=== PATIENT | male | born 1935 | race Caucasian/White ===

== ENCOUNTER 2017-08-19 17:48 | Inpatient (IN) | payer MEDICARE ==
[~2017-08-19] VITALS: Ht 188 cm; Wt 105.9 kg
[2017-08-19] MEDS ORDERED: HYDR-963 PO (20:17)
[2017-08-19] MEDS ORDERED: FURO-69 PO (20:17)
[2017-08-19] MEDS ORDERED: SERT100T PO (20:17)
[2017-08-19] MEDS ORDERED: QUET25TA5 PO (20:17)
[2017-08-19] MEDS ORDERED: MEMA1CAP PO (20:17)
[2017-08-19] MEDS ORDERED: CLOP75TA57 PO (20:17)
[2017-08-19] MEDS ORDERED: PANT40TA5 PO (20:17)
[2017-08-19] MEDS ORDERED: ASPI325T8 PO (20:17)
[2017-08-19] MEDS ORDERED: DONE10TA61 PO (20:17)
[2017-08-19] MEDS ORDERED: LEVO100T5 PO (20:17)
[2017-08-19] MEDS ORDERED: GABA-586 PO (20:17)
[2017-08-19] MEDS ORDERED: FOSI20TA PO (20:17)
[2017-08-19] MEDS ORDERED: FERR324T9 PO (20:17)
[2017-08-19] MEDS ORDERED: FINA5TAB4 PO (20:17)
[2017-08-19] MEDS ORDERED: CARV6.252 PO (20:17)
[2017-08-19] MEDS ORDERED: ATOR40TA59 PO (20:17)
[2017-08-19] MEDS ORDERED: MEMA28CA PO (20:17)
[2017-08-19] MEDS ORDERED: ACETAMINOPHEN 325 MG TABLET PO PRN (20:30)
[2017-08-19] MEDS ORDERED: METHYL SALICYLATE/MENTHOL TOPICAL OINTMENT 29GM TUBE. TP PRN (20:30)
[2017-08-19] MEDS ORDERED: MAGNESIUM HYDROXIDE 2,400 MG/30 ML ORAL.SUSP. PO PRN (20:30)
[2017-08-19] MEDS ORDERED: MAG HYDROX/AL HYDROX/SIMETH 30 ML ORAL.SUSP PO PRN (20:30)
--- NOTE | 2017-08-19 21:00 | PDOC ---
Exam Note: Jorje Note: Please also refer to the separate dictated note~for this date of service dictated separately.~Patient seen individually. Discussed the patient with Nursing staff reviewed the chart.~Reviewed interim history and current functioning. Reviewed vital signs,~Labs/ Radiology~and current medications noted below. Continue current treatment with the changes noted in the dictated addendum note Current Medications: Meds: Current Medications Acetaminophen (Tylenol) 650 mg PRN Q6HRS PRN PO PAIN / TEMP; Start 08/19/17 at 20:30 Multi-Ingredient Ointment (Analgesic [place]) 1 lima PRN QID PRN TP MUSCLE PAIN; Start 08/19/17 at 20:30 Al Hydroxide/Mg Hydroxide (Mylanta Plus Xs) 15 ml PRN AFTMEALHC PRN PO DYSPEPSIA; Start 08/19/17 at 20:30 Magnesium Hydroxide (Milk Of Magnesia) 2,400 mg PRN QHS PRN PO CONSTIPATION; Start 08/19/17 at 20:30 Donepezil HCl (Aricept) 10 mg QHS PO ; Start 08/19/17 at 21:00 Quetiapine Fumarate (SEROquel) 25 mg PRN Q12HR PRN PO Agitation/Delusions; Start 08/19/17 at 20:30 Sertraline HCl (Zoloft) 100 mg DAILY PO ; Start 08/20/17 at 09:00 Aspirin (Sandra Aspirin) 325 mg DAILY PO ; Start 08/20/17 at 09:00 Carvedilol (Coreg) 6.25 mg BIDWMEALS PO ; Start 08/20/17 at 08:00 Clopidogrel Bisulfate (Plavix) 75 mg DAILY PO ; Start 08/20/17 at 09:00 Finasteride (Proscar) 5 mg DAILY PO ; Start 08/20/17 at 09:00 Furosemide (Lasix) 20 mg DAILY PO ; Start 08/20/17 at 09:00 Gabapentin (Neurontin) 300 mg TID PO ; Start 08/19/17 at 21:00 Levothyroxine Sodium (Synthroid) 100 mcg DAILY07 PO ; Start 08/20/17 at 07:00 Pantoprazole Sodium (Protonix) 40 mg BID PO ; Start 08/19/17 at 21:00 Atorvastatin Calcium (Lipitor) 40 mg QHS PO ; Start 08/19/17 at 21:00 Ferrous Sulfate (Feosol) 325 mg DAILY PO ; Start 08/20/17 at 09:00 Lisinopril (Prinivil) 20 mg DAILY PO ; Start 08/20/17 at 09:00 Active Scripts Active Reported [place] 10-325 Tablet (Hydrocodone Bit/Acetaminophen) 1 Each Tablet 1 Tab PO PRN Q6HRS PRN Aspirin 325 Mg Tablet 325 Mg PO DAILY Atorvastatin Calcium 40 Mg Tablet 40 Mg PO QHS Carvedilol 6.25 Mg Tablet 6.25 Mg PO BIDWMEALS Plavix (Clopidogrel Bisulfate) 75 Mg Tablet 75 Mg PO DAILY Aricept (Donepezil Hcl) 10 Mg Tablet 10 Mg PO QHS Ferrous Gluconate 324 Mg Tablet 324 Mg PO DAILY Finasteride 5 Mg Tablet 5 Mg PO DAILY Fosinopril Sodium 20 Mg Tablet 20 Mg PO DAILY Lasix (Furosemide) 20 Mg Tablet 20 Mg PO DAILY Neurontin (Gabapentin) 300 Mg Capsule 300 Mg PO TID Levothyroxine Sodium 100 Mcg Tablet 100 Mcg PO DAILY07 Namenda Xr (Memantine Hcl) 28 Mg Cap.spr.24 28 Mg PO DAILY Namenda Xr (Memantine Hcl) 1 Each Cap24.dspk 1 Each PO DAILY Pantoprazole Sodium 40 Mg Tablet.dr 40 Mg PO BID Seroquel (Quetiapine Fumarate) 25 Mg Tablet 25 Mg PO PRN Q12HR PRN Zoloft (Sertraline Hcl) 100 Mg Tablet 100 Mg PO DAILY I have reviewed the current psychotropics carefully including drug interactions. Risk benefit ratio favors no change other than as noted in my dictated progress note. DOMONIQUE ROWELL MD August 19, 2017 21:00
[2017-08-19] MEDS: ATORVASTATIN CALCIUM 20 MG TABLET PO SCH (21:17)
[2017-08-19] MEDS: PANTOPRAZOLE 40 MG TABLET. PO SCH (21:17)
[2017-08-19] MEDS: GABAPENTIN 300 MG CAPSULE. PO SCH (21:17)
[2017-08-19] MEDS: DONEPEZIL HCL 10 MG TABLET PO SCH (21:17)
[2017-08-19 23:00] VITALS: BP 136/81
[2017-08-20 05:45] VITALS: BP 108/55
[2017-08-20] MEDS: GABAPENTIN 300 MG CAPSULE. PO SCH ×3 (08:01→19:49)
[2017-08-20] MEDS: PANTOPRAZOLE 40 MG TABLET. PO SCH ×2 (08:01→19:49)
[2017-08-20] MEDS: LEVOTHYROXINE 100 MCG TABLET PO SCH (08:01)
[2017-08-20] MEDS: ASPIRIN 325 MG TABLET PO SCH (08:03)
[2017-08-20] MEDS: FERROUS SULFATE 325 MG TABLET. PO SCH (08:03)
[2017-08-20] MEDS: LISINOPRIL 20 MG TABLET PO SCH (08:04)
[2017-08-20] MEDS: FINASTERIDE 5 MG TABLET PO SCH (08:04)
[2017-08-20] MEDS: CARVEDILOL 6.25 MG TABLET PO SCH ×2 (08:04→17:27)
[2017-08-20] MEDS: FUROSEMIDE 20 MG TABLET PO SCH (08:04)
[2017-08-20] MEDS: CLOPIDOGREL BISULFATE 75 MG TABLET PO SCH (08:04)
[2017-08-20] MEDS: SERTRALINE 100 MG TABLET. PO SCH (08:04)
[2017-08-20 08:22] LABS: BASO # 0.1 x10^3/uL (0.0-0.2); BASO % 3 % (0-3); EOS # 0.3 x10^3/uL (0.0-0.7); EOS % 8 % (0-3); HEMATOCRIT 36.5 % (39.0-53.0); HEMOGLOBIN 11.8 g/dL (13.0-17.5); LYMPH # 0.8 x10^3/uL (1.0-4.8); LYMPH % 22 % (24-48); MEAN CORPUSCULAR HEMOGLOBIN 30 pg (25-35); MEAN CORPUSCULAR HGB CONC 32 g/dL (31-37); MEAN CORPUSCULAR VOLUME 94 fL (79-100); MONO # 0.4 x10^3/uL (0.0-1.1); MONO % 13 % (0-9); NEUT # 1.9 x10^3uL (1.8-7.7); NEUT % 55 % (31-73); PLATELET COUNT 102 x10^3/uL (140-400); RED BLOOD COUNT 3.88 x10^6/uL (4.30-5.70); RED CELL DISTRIBUTION WIDTH 21.5 % (11.5-14.5); WHITE BLOOD COUNT 3.5 x10^3/uL (4.0-11.0)
[2017-08-20 08:29] LABS: ALBUMIN 3.2 g/dL (3.4-5.0); CALCIUM 8.4 mg/dL (8.5-10.1); CREATININE 0.9 mg/dL (0.7-1.3); POTASSIUM 3.6 mmol/L (3.5-5.1); TOTAL BILIRUBIN 0.8 mg/dL (0.2-1.0); TOTAL PROTEIN 6.3 g/dL (6.4-8.2)
[2017-08-20 09:50] LABS: ANISOCYTOSIS SLIGHT; OVALOCYTES FEW; PLT ESTIMATE DECREASED (ADEQUATE); SCHISTOCYTES OCC; TEAR DROP CELLS OCC
[2017-08-20 14:09] LABS: THYROID STIM HORMONE (TSH) 3.913 uIU/mL (0.358-3.740)
[2017-08-20 15:53] VITALS: BP 111/72
[2017-08-20] MEDS: DONEPEZIL HCL 10 MG TABLET PO SCH (19:49)
[2017-08-20] MEDS: ATORVASTATIN CALCIUM 20 MG TABLET PO SCH (19:49)
[2017-08-20] MEDS: risperiDONE ORAL 1 MG/ML 30ml BOTTLE. SL SCH (19:50)
[2017-08-20] MEDS: CHOLECALCIFEROL (VITAMIN D3) 50,000 UNIT CAPSULE PO SCH (19:50)
[2017-08-20 20:09] LABS: T3 TOTAL 62 ng/dL (71-180)
[2017-08-20 20:39] LABS: BACTERIA,URINE 0 /HPF (0-FEW); BILIRUBIN,URINE NEG (NEG); CLARITY,URINE CLEAR; COLOR,URINE AMBER; GLUCOSE,URINE NEG (NEG); NITRITE,URINE NEG (NEG); UROBILINOGEN,URINE 0.2 mg/dL (0.2 mg/dL)
[2017-08-20 20:40] LABS: SQUAMOUS EPITHELIAL CELL,UR OCC /LPF
--- NOTE | 2017-08-20 21:02 | PDOC ---
Exam Note: Jorje Note: Please also refer to the separate dictated note~for this date of service dictated separately.~Patient seen individually. Discussed the patient with Nursing staff reviewed the chart.~Reviewed interim history and current functioning. Reviewed vital signs,~Labs/ Radiology~and current medications noted below. Continue current treatment with the changes noted in the dictated addendum note Assessment: Vital Signs: Vital Signs Date Time Temp Pulse Resp B/P (MAP) Pulse Ox O2 Delivery O2 Flow Rate FiO2 08/20/17 17:27 83 111/72 08/20/17 15:53 97.6 18 96 I&O Intake and Output 08/20/17 07:00 Intake Total 480 ml Balance 480 ml Intake Oral 480 ml Labs: Laboratory Tests Test 08/20/17 07:50 08/20/17 15:15 White Blood Count 3.5 x10^3/uL (4.0-11.0) L Red Blood Count 3.88 x10^6/uL (4.30-5.70) L Hemoglobin 11.8 g/dL (13.0-17.5) L Hematocrit 36.5 % (39.0-53.0) L Mean Corpuscular Volume 94 fL (79-100) Mean Corpuscular Hemoglobin 30 pg (25-35) Mean Corpuscular Hemoglobin Concent 32 g/dL (31-37) Red Cell Distribution Width 21.5 % (11.5-14.5) H Platelet Count 102 x10^3/uL (140-400) L Neutrophils (%) (Auto) 55 % (31-73) Lymphocytes (%) (Auto) 22 % (24-48) L Monocytes (%) (Auto) 13 % (0-9) H Eosinophils (%) (Auto) 8 % (0-3) H Basophils (%) (Auto) 3 % (0-3) Neutrophils # (Auto) 1.9 x10^3uL (1.8-7.7) Lymphocytes # (Auto) 0.8 x10^3/uL (1.0-4.8) L Monocytes # (Auto) 0.4 x10^3/uL (0.0-1.1) Eosinophils # (Auto) 0.3 x10^3/uL (0.0-0.7) Basophils # (Auto) 0.1 x10^3/uL (0.0-0.2) Platelet Estimate Decreased (ADEQUATE) Anisocytosis Slight Tear Drop Cells Occ Ovalocytes Few Schistocytes Occ Sodium Level 144 mmol/L (136-145) Potassium Level 3.6 mmol/L (3.5-5.1) Chloride Level 109 mmol/L (98-107) H Carbon Dioxide Level 28 mmol/L (21-32) Anion Gap 7 (6-14) Blood Urea Nitrogen 14 mg/dL (8-26) Creatinine 0.9 mg/dL (0.7-1.3) Estimated GFR (Cockcroft-Gault) 81.0 BUN/Creatinine Ratio 16 (6-20) Glucose Level 91 mg/dL (70-99) Calcium Level 8.4 mg/dL (8.5-10.1) L Magnesium Level 2.0 mg/dL (1.8-2.4) Iron Level 38 ug/dL (65-175) L Total Iron Binding Capacity 294 ug/dL (250-450) Iron Saturation 13 % (15-34) L Total Bilirubin 0.8 mg/dL (0.2-1.0) Aspartate Amino Transferase (AST) 23 U/L (15-37) Alanine Aminotransferase (ALT) 19 U/L (16-63) Alkaline Phosphatase 79 U/L (46-116) Total Protein 6.3 g/dL (6.4-8.2) L Albumin 3.2 g/dL (3.4-5.0) L Albumin/Globulin Ratio 1.0 (1.0-1.7) Triglycerides Level 59 mg/dL (0-150) Cholesterol Level 96 mg/dL (0-200) LDL Cholesterol, Calculated 49 mg/dL (0-100) VLDL Cholesterol, Calculated 11 mg/dL (0-40) Non-HDL Cholesterol Calculated 60 mg/dL (0-129) HDL Cholesterol 36 mg/dL (40-60) L Cholesterol/HDL Ratio 2.0 Vitamin B12 Level 581 pg/mL (247-911) 25-Hydroxy Vitamin D Total 10.1 ng/mL (30-100) L Thyroid Stimulating Hormone (TSH) 3.913 uIU/mL (0.358-3.740) Thyroxine (T4) 6.0 ug/dL (4.5-12.0) Total Triiodothyronine (TT3) 62 ng/dL (71-180) L Rapid Plasma Reagin Pending Urine Collection Type Unknown Urine Color Allyssa Urine Clarity Clear Urine pH 5.5 Urine Specific [place] 1.020 Urine Protein Neg (NEG-TRACE) Urine Glucose (UA) Neg mg/dL (NEG) Urine Ketones (Stick) Neg mg/dL (NEG) Urine Blood Large (NEG) Urine Nitrite Neg (NEG) Urine Bilirubin Neg (NEG) Urine Urobilinogen Dipstick 0.2 mg/dL (0.2 mg/dL) Urine Leukocyte Esterase Neg (NEG) Urine RBC 3-5 /HPF (0-2) Urine WBC 1-4 /HPF (0-4) Urine Squamous Epithelial Cells Occ /LPF Urine Bacteria 0 /HPF (0-FEW) Urine Mucus Mod /LPF Current Medications: Meds: Current Medications Acetaminophen (Tylenol) 650 mg PRN Q6HRS PRN PO PAIN / TEMP; Start 08/19/17 at 20:30 Multi-Ingredient Ointment (Analgesic [place]) 1 lima PRN QID PRN TP MUSCLE PAIN; Start 08/19/17 at 20:30 Al Hydroxide/Mg Hydroxide (Mylanta Plus Xs) 15 ml PRN AFTMEALHC PRN PO DYSPEPSIA; Start 08/19/17 at 20:30 Magnesium Hydroxide (Milk Of Magnesia) 2,400 mg PRN QHS PRN PO CONSTIPATION; Start 08/19/17 at 20:30 Donepezil HCl (Aricept) 10 mg QHS PO Last administered on 08/20/17at 19:49; Start 08/19/17 at 21:00 Quetiapine Fumarate (SEROquel) 25 mg PRN Q12HR PRN PO Agitation/Delusions; Start 08/19/17 at 20:30 Sertraline HCl (Zoloft) 100 mg DAILY PO Last administered on 08/20/17at 08:04; Start 08/20/17 at 09:00 Aspirin (Sandra Aspirin) 325 mg DAILY PO Last administered on 08/20/17at 08:03; Start 08/20/17 at 09:00 Carvedilol (Coreg) 6.25 mg BIDWMEALS PO Last administered on 08/20/17at 17:27; Start 08/20/17 at 08:00 Clopidogrel Bisulfate (Plavix) 75 mg DAILY PO Last administered on 08/20/17at 08: 04; Start 08/20/17 at 09:00 Finasteride (Proscar) 5 mg DAILY PO Last administered on 08/20/17 08:04; Start 08/20/17 at 09:00 Furosemide (Lasix) 20 mg DAILY PO Last administered on 08/20/17 08:04; Start at 09:00 Gabapentin (Neurontin) 300 mg TID PO Last administered on 08/20/17 19:49; Start 08/19/17 at 21:00 Levothyroxine Sodium (Synthroid) 100 mcg DAILY07 PO Last administered on 08:01; Start 08/20/17 at 07:00 Pantoprazole Sodium (Protonix) 40 mg BID PO Last administered on 08/20/17 19:49 ; Start 08/19/17 at 21:00 Atorvastatin Calcium (Lipitor) 40 mg QHS PO Last administered on 08/20/17 19:49 ; Start 08/19/17 at 21:00 Ferrous Sulfate (Feosol) 325 mg DAILY PO Last administered on 08/20/17 08:03; Start 08/20/17 at 09:00 Lisinopril (Prinivil) 20 mg DAILY PO Last administered on 08/20/17 08:04; Start 08/20/17 at 09:00 Olanzapine (ZyPREXA ZYDIS) 2.5 mg PRN Q2HR PRN PO PSYCHOSIS Last administered on 08/20/17 04:37; Start 08/20/17 at 03:30 Vitamin D (Vitamin D3) 50,000 unit WEEKLY PO Last administered on 08/20/17 19: 50; Start 08/20/17 at 19:00 Risperidone (RisperDAL) 0.25 mg HS SL Last administered on 08/20/17 19:50; Start 08/20/17 at 21:00 Active Scripts Active Reported [place] 10-325 Tablet (Hydrocodone Bit/Acetaminophen) 1 Each Tablet 1 Tab PO PRN Q6HRS PRN Aspirin 325 Mg Tablet 325 Mg PO DAILY Atorvastatin Calcium 40 Mg Tablet 40 Mg PO QHS Carvedilol 6.25 Mg Tablet 6.25 Mg PO BIDWMEALS Plavix (Clopidogrel Bisulfate) 75 Mg Tablet 75 Mg PO DAILY Aricept (Donepezil Hcl) 10 Mg Tablet 10 Mg PO QHS Ferrous Gluconate 324 Mg Tablet 324 Mg PO DAILY Finasteride 5 Mg Tablet 5 Mg PO DAILY Fosinopril Sodium 20 Mg Tablet 20 Mg PO DAILY Lasix (Furosemide) 20 Mg Tablet 20 Mg PO DAILY Neurontin (Gabapentin) 300 Mg Capsule 300 Mg PO TID Levothyroxine Sodium 100 Mcg Tablet 100 Mcg PO DAILY07 Namenda Xr (Memantine Hcl) 28 Mg Cap.spr.24 28 Mg PO DAILY Namenda Xr (Memantine Hcl) 1 Each Cap24.dspk 1 Each PO DAILY Pantoprazole Sodium 40 Mg Tablet.dr 40 Mg PO BID Seroquel (Quetiapine Fumarate) 25 Mg Tablet 25 Mg PO PRN Q12HR PRN Zoloft (Sertraline Hcl) 100 Mg Tablet 100 Mg PO DAILY I have reviewed the current psychotropics carefully including drug interactions. Risk benefit ratio favors no change other than as noted in my dictated progress note. DOMONIQUE ROWELL MD August 20, 2017 21:02
[2017-08-20 23:09] LABS: HEMOGLOBIN A1C 5.6 % (4.8-5.6)
[2017-08-21 06:17] VITALS: BP 126/79
[2017-08-21] MEDS: LEVOTHYROXINE 100 MCG TABLET PO SCH (06:30)
--- NOTE | 2017-08-21 07:00 | EKG ---
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
[2017-08-21] MEDS: PANTOPRAZOLE 40 MG TABLET. PO SCH ×2 (07:53→19:45)
[2017-08-21] MEDS: CLOPIDOGREL BISULFATE 75 MG TABLET PO SCH (07:53)
[2017-08-21] MEDS: FERROUS SULFATE 325 MG TABLET. PO SCH (07:53)
[2017-08-21] MEDS: GABAPENTIN 300 MG CAPSULE. PO SCH ×3 (07:53→19:46)
[2017-08-21] MEDS: CARVEDILOL 6.25 MG TABLET PO SCH ×2 (07:53→18:41)
[2017-08-21] MEDS: SERTRALINE 100 MG TABLET. PO SCH (07:53)
[2017-08-21] MEDS: FUROSEMIDE 20 MG TABLET PO SCH (07:53)
[2017-08-21] MEDS: FINASTERIDE 5 MG TABLET PO SCH (07:53)
[2017-08-21] MEDS: ASPIRIN 325 MG TABLET PO SCH (07:53)
[2017-08-21] MEDS: LISINOPRIL 20 MG TABLET PO SCH (07:56)
--- NOTE | 2017-08-21 12:14 | RAD ---
CT head without intravenous contrast History: Altered mental status. Comparison: None. Technique: Axial images are obtained of the head from the skull base through the vertex without IV contrast. Exposure: One or more of the following individualized dose reduction techniques were utilized for this examination: 1. Automated exposure control 2. Adjustment of the mA and/or kV according to patient size 3. Use of iterative reconstruction technique Findings: The ventricles are appropriate in size, shape, and location for the patient's age. No obvious intracranial mass, mass-effect, midline shift, hemorrhage or obvious acute infarction is identified. Basilar cisterns are patent. Mild, patchy, subtle white matter low-attenuation is seen, probably from chronic microvascular ischemic disease. Bone windows demonstrate no acute calvarial abnormality. The visualized paranasal sinuses appear clear. Impression: 1. No acute intracranial process. Please note that CT can be relatively insensitive to acute ischemic infarction for up to 24 hours after symptom onset. 2. Nonspecific white matter changes, probably from chronic microvascular ischemic disease. Electronically signed by: Bernardo Vickers MD (08/21/2017 12:11 PM) [facility]
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
[2017-08-21 16:50] VITALS: BP 116/64
[2017-08-21] MEDS: DONEPEZIL HCL 10 MG TABLET PO SCH (19:45)
[2017-08-21] MEDS: ATORVASTATIN CALCIUM 20 MG TABLET PO SCH (19:45)
[2017-08-21] MEDS: risperiDONE ORAL 1 MG/ML 30ml BOTTLE. SL SCH (19:46)
--- NOTE | 2017-08-21 20:59 | CONS ---
DATE OF CONSULTATION: 08/20/2017 REASON FOR CONSULTATION: Medical management. HISTORY OF PRESENT ILLNESS: This is an 82-year-old male patient who was admitted on account of suicidal ideation, he planned to shoot himself with a gun, night before he ran into streets saying his family was trying to kill him. The police were called. He talks to cabbage in the garden and other delusional behaviors, all this in a background of unspecified psychosis and the patient was admitted for inpatient psychiatric stabilization. PAST MEDICAL HISTORY: Significant for coronary artery disease, atrial fibrillation, hyperlipidemia, hypertension, history of prostate cancer, supraventricular tachycardia, and DVT. PAST SURGICAL HISTORY: Significant for PCI with stent deployment and implanted cardiac defibrillator. ALLERGIES: He is allergic to HALDOL, PENICILLIN AND INFLUENZA VACCINE. He apparently is also known to have dementia for which he was started on Namenda. PAST PSYCHIATRIC HISTORY: Significant for mood disorder. SOCIAL HISTORY: He apparently lives at home with his daughter and son-in-law. He drinks alcohol occasionally. He does not smoke. He is retired. 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 PHYSICAL EXAMINATION: GENERAL: When I examined him, he looked well and was clearly in no apparent respiratory distress, pale, but no jaundice or cyanosis. No lymphadenopathy, no thyromegaly. No jugular venous distention. No lower limb edema. VITAL SIGNS: His heart rate was 83, blood pressure was 111/72, temperature was 97.6, respiratory rate was 18 and oxygen saturation was 96%. HEAD, EYES, EARS, NOSE AND THROAT: Showed normocephalic, atraumatic. NECK: Supple. HEART: Showed normal first and second heart sounds. No gallop, rub or murmur. CHEST: Clear to auscultation. No crepitation or rhonchi. ABDOMEN: Distended, soft, nontender. No guarding or rigidity. No organomegaly. All hernial orifices are intact. Bowel sounds normal. NEUROLOGIC: He was awake, alert, responding appropriately. All cranial nerves are intact. EXTREMITIES: He moves extremities without difficulty, ambulates with a walker. LABORATORY DATA: As of this morning showed a white cell count of 3500, hemoglobin 12, hematocrit 36, MCV 94 and platelet count 203,000. His chemistry showed a serum sodium 144, potassium 3.6, chloride 109, bicarbonate 28, anion gap of 7, BUN 14, creatinine 0.9, estimated GFR was 81 mL per minute. His glucose was 91, calcium was 8.4, magnesium 2. Serum iron was 38, TIBC was 294, percent saturation was 13%. Total bilirubin, AST, ALT, alkaline phosphatase were normal. Total protein 6.3, albumin 3.2. His triglycerides were 59, cholesterol 96, LDL was 49, VLDL was 11, HDL cholesterol 36 and the ratio was 2. His vitamin B12 was 581; however, his 25-hydroxy vitamin D is very low and TSH is slightly higher than the upper limit of normal. IMPRESSION: In summary, this is an 82-year-old male patient who was admitted on account of suicidal ideation, threatening to kill himself by a gun. He also ran into street saying his family was trying to kill him and the police was called, talks to cabbages in the garden and the other delusional behaviors. Medically, he has multiple medical problems including atrial fibrillation, coronary artery disease status post coronary artery bypass graft, hyperlipidemia, hypertension, deep venous thrombosis. Clinically, his vital signs are all stable. His lab works are all within acceptable range except that his 25-hydroxy vitamin D is low and TSH is slightly elevated. His albumin was also slightly in the lower side, but all in all, he seemed to be medically stable. I will arrange for him to start him on cholecalciferol. I will check his T3, T4, free T4 and decide on further management accordingly. Thank you, Dr. Greenfield for allowing me to participate in the care of this patient. RASHMI HERRERA MD DR: BRETT/hafsa JOB#: [id number] / [id number]
--- NOTE | 2017-08-21 23:00 | PDOC ---
Exam Note: Jorje Note: Please also refer to the separate dictated note~for this date of service dictated separately.~Patient seen individually. Discussed the patient with Nursing staff reviewed the chart.~Reviewed interim history and current functioning. Reviewed vital signs,~Labs/ Radiology~and current medications noted below. Continue current treatment with the changes noted in the dictated addendum note Assessment: Vital Signs: Vital Signs Date Time Temp Pulse Resp B/P (MAP) Pulse Ox O2 Delivery O2 Flow Rate FiO2 08/21/17 21:16 94 08/21/17 18:41 87 116/64 08/21/17 16:50 96.8 18 I&O Intake and Output 08/21/17 07:00 Intake Total 840 ml Balance 840 ml Intake Oral 840 ml Current Medications: Meds: Current Medications Acetaminophen (Tylenol) 650 mg PRN Q6HRS PRN PO PAIN / TEMP; Start 08/19/17 at 20:30 Multi-Ingredient Ointment (Analgesic [place]) 1 lima PRN QID PRN TP MUSCLE PAIN; Start 08/19/17 at 20:30 Al Hydroxide/Mg Hydroxide (Mylanta Plus Xs) 15 ml PRN AFTMEALHC PRN PO DYSPEPSIA; Start 08/19/17 at 20:30 Magnesium Hydroxide (Milk Of Magnesia) 2,400 mg PRN QHS PRN PO CONSTIPATION; Start 08/19/17 at 20:30 Donepezil HCl (Aricept) 10 mg QHS PO Last administered on 08/21/17at 19:45; Start 08/19/17 at 21:00 Quetiapine Fumarate (SEROquel) 25 mg PRN Q12HR PRN PO Agitation/Delusions; Start 08/19/17 at 20:30 Sertraline HCl (Zoloft) 100 mg DAILY PO Last administered on 08/21/17 07:53; Start 08/20/17 at 09:00 Aspirin (Sandra Aspirin) 325 mg DAILY PO Last administered on 08/21/17 07:53; Start 08/20/17 at 09:00 Carvedilol (Coreg) 6.25 mg BIDWMEALS PO Last administered on 08/21/17at 18:41; Start 08/20/17 at 08:00 Clopidogrel Bisulfate (Plavix) 75 mg DAILY PO Last administered on 08/21/17at 07: 53; Start 08/20/17 at 09:00 Finasteride (Proscar) 5 mg DAILY PO Last administered on 08/21/17 07:53; Start 08/20/17 at 09:00 Furosemide (Lasix) 20 mg DAILY PO Last administered on 08/21/17 07:53; Start at 09:00 Gabapentin (Neurontin) 300 mg TID PO Last administered on 08/21/17 19:46; Start 08/19/17 at 21:00 Levothyroxine Sodium (Synthroid) 100 mcg DAILY07 PO Last administered on 06:30; Start 08/20/17 at 07:00 Pantoprazole Sodium (Protonix) 40 mg BID PO Last administered on 08/21/17 19:45 ; Start 08/19/17 at 21:00 Atorvastatin Calcium (Lipitor) 40 mg QHS PO Last administered on 08/21/17 19:45 ; Start 08/19/17 at 21:00 Ferrous Sulfate (Feosol) 325 mg DAILY PO Last administered on 08/21/17 07:53; Start 08/20/17 at 09:00 Lisinopril (Prinivil) 20 mg DAILY PO Last administered on 08/21/17 07:56; Start 08/20/17 at 09:00 Olanzapine (ZyPREXA ZYDIS) 2.5 mg PRN Q2HR PRN PO PSYCHOSIS Last administered on 08/20/17 04:37; Start 08/20/17 at 03:30 Vitamin D (Vitamin D3) 50,000 unit WEEKLY PO Last administered on 08/20/17 19: 50; Start 08/20/17 at 19:00 Risperidone (RisperDAL) 0.25 mg HS SL Last administered on 08/21/17 19:46; Start 08/20/17 at 21:00 Active Scripts Active Reported [employer] 10-325 Tablet (Hydrocodone Bit/Acetaminophen) 1 Each Tablet 1 Tab PO PRN Q6HRS PRN Aspirin 325 Mg Tablet 325 Mg PO DAILY Atorvastatin Calcium 40 Mg Tablet 40 Mg PO QHS Carvedilol 6.25 Mg Tablet 6.25 Mg PO BIDWMEALS Plavix (Clopidogrel Bisulfate) 75 Mg Tablet 75 Mg PO DAILY Aricept (Donepezil Hcl) 10 Mg Tablet 10 Mg PO QHS Ferrous Gluconate 324 Mg Tablet 324 Mg PO DAILY Finasteride 5 Mg Tablet 5 Mg PO DAILY Fosinopril Sodium 20 Mg Tablet 20 Mg PO DAILY Lasix (Furosemide) 20 Mg Tablet 20 Mg PO DAILY Neurontin (Gabapentin) 300 Mg Capsule 300 Mg PO TID Levothyroxine Sodium 100 Mcg Tablet 100 Mcg PO DAILY07 Namenda Xr (Memantine Hcl) 28 Mg Cap.spr.24 28 Mg PO DAILY Namenda Xr (Memantine Hcl) 1 Each Cap24.dspk 1 Each PO DAILY Pantoprazole Sodium 40 Mg Tablet.dr 40 Mg PO BID Seroquel (Quetiapine Fumarate) 25 Mg Tablet 25 Mg PO PRN Q12HR PRN Zoloft (Sertraline Hcl) 100 Mg Tablet 100 Mg PO DAILY I have reviewed the current psychotropics carefully including drug interactions. Risk benefit ratio favors no change other than as noted in my dictated progress note. Diagnosis: Problems: (1) Major neurocognitive disorder (2) Anxiety disorder (3) Delusion (4) Dementia, vascular, with delusions (5) Impulse control disorder DOMONIQUE ROWELL MD August 21, 2017 23:00
[2017-08-22] MEDS: QUEtiapine 25 MG TABLET. PO PRN (03:42)
[2017-08-22] MEDS: FUROSEMIDE 20 MG TABLET PO SCH (09:06)
[2017-08-22] MEDS: CLOPIDOGREL BISULFATE 75 MG TABLET PO SCH (09:06)
[2017-08-22] MEDS: FERROUS SULFATE 325 MG TABLET. PO SCH (09:06)
[2017-08-22] MEDS: CARVEDILOL 6.25 MG TABLET PO SCH ×2 (09:06→17:00)
[2017-08-22] MEDS: ASPIRIN 325 MG TABLET PO SCH (09:06)
[2017-08-22] MEDS: GABAPENTIN 300 MG CAPSULE. PO SCH ×3 (09:06→19:57)
[2017-08-22] MEDS: PANTOPRAZOLE 40 MG TABLET. PO SCH ×2 (09:06→19:57)
[2017-08-22] MEDS: FINASTERIDE 5 MG TABLET PO SCH (09:06)
[2017-08-22] MEDS: SERTRALINE 100 MG TABLET. PO SCH (09:07)
[2017-08-22] MEDS: LEVOTHYROXINE 100 MCG TABLET PO SCH (09:08)
[2017-08-22] MEDS: LISINOPRIL 20 MG TABLET PO SCH (09:08)
[2017-08-22 16:36] VITALS: BP 130/77
--- NOTE | 2017-08-22 18:45 | PDOC ---
Exam Note: Jorje Note: Please also refer to the separate dictated note~for this date of service dictated separately.~Patient seen individually. Discussed the patient with Nursing staff reviewed the chart.~Reviewed interim history and current functioning. Reviewed vital signs,~Labs/ Radiology~and current medications noted below. Continue current treatment with the changes noted in the dictated addendum note Assessment: Vital Signs: Vital Signs Date Time Temp Pulse Resp B/P (MAP) Pulse Ox O2 Delivery O2 Flow Rate FiO2 08/22/17 16:36 96.8 72 19 130/77 (94) 97 I&O Intake and Output 08/22/17 07:00 Intake Total 720 ml Balance 720 ml Intake Oral 720 ml Current Medications: Meds: Current Medications Acetaminophen (Tylenol) 650 mg PRN Q6HRS PRN PO PAIN / TEMP; Start 08/19/17 at 20:30 Multi-Ingredient Ointment (Analgesic [place]) 1 lima PRN QID PRN TP MUSCLE PAIN; Start 08/19/17 at 20:30 Al Hydroxide/Mg Hydroxide (Mylanta Plus Xs) 15 ml PRN AFTMEALHC PRN PO DYSPEPSIA; Start 08/19/17 at 20:30 Magnesium Hydroxide (Milk Of Magnesia) 2,400 mg PRN QHS PRN PO CONSTIPATION; Start 08/19/17 at 20:30 Donepezil HCl (Aricept) 10 mg QHS PO Last administered on 08/21/17at 19:45; Start 08/19/17 at 21:00 Quetiapine Fumarate (SEROquel) 25 mg PRN Q12HR PRN PO Agitation/Delusions Last administered on 08/22/17at 03:42; Start 08/19/17 at 20:30 Sertraline HCl (Zoloft) 100 mg DAILY PO Last administered on 08/22/17 09:07; Start 08/20/17 at 09:00 Aspirin ([place] Aspirin) 325 mg DAILY PO Last administered on 08/22/17 09:06; Start 08/20/17 at 09:00 Carvedilol (Coreg) 6.25 mg BIDWMEALS PO Last administered on 08/22/17 09:06; Start 08/20/17 at 08:00 Clopidogrel Bisulfate (Plavix) 75 mg DAILY PO Last administered on 08/22/17 09: 06; Start 08/20/17 at 09:00 Finasteride (Proscar) 5 mg DAILY PO Last administered on 08/22/17 09:06; Start 08/20/17 at 09:00 Furosemide (Lasix) 20 mg DAILY PO Last administered on 08/22/17 09:06; Start at 09:00 Gabapentin (Neurontin) 300 mg TID PO Last administered on 08/22/17 12:11; Start 08/19/17 at 21:00 Levothyroxine Sodium (Synthroid) 100 mcg DAILY07 PO Last administered on 09:08; Start 08/20/17 at 07:00 Pantoprazole Sodium (Protonix) 40 mg BID PO Last administered on 08/22/17 09:06 ; Start 08/19/17 at 21:00 Atorvastatin Calcium (Lipitor) 40 mg QHS PO Last administered on 08/21/17 19:45 ; Start 08/19/17 at 21:00 Ferrous Sulfate (Feosol) 325 mg DAILY PO Last administered on 08/22/17 09:06; Start 08/20/17 at 09:00 Lisinopril (Prinivil) 20 mg DAILY PO Last administered on 08/22/17 09:08; Start 08/20/17 at 09:00 Olanzapine (ZyPREXA ZYDIS) 2.5 mg PRN Q2HR PRN PO PSYCHOSIS Last administered on 08/22/17 12:11; Start 08/20/17 at 03:30 Vitamin D (Vitamin D3) 50,000 unit WEEKLY PO Last administered on 08/20/17 19: 50; Start 08/20/17 at 19:00 Risperidone (RisperDAL) 0.25 mg HS SL Last administered on 08/21/17 19:46; Start 08/20/17 at 21:00 Active Scripts Active Reported [place] 10-325 Tablet (Hydrocodone Bit/Acetaminophen) 1 Each Tablet 1 Tab PO PRN Q6HRS PRN Aspirin 325 Mg Tablet 325 Mg PO DAILY Atorvastatin Calcium 40 Mg Tablet 40 Mg PO QHS Carvedilol 6.25 Mg Tablet 6.25 Mg PO BIDWMEALS Plavix (Clopidogrel Bisulfate) 75 Mg Tablet 75 Mg PO DAILY Aricept (Donepezil Hcl) 10 Mg Tablet 10 Mg PO QHS Ferrous Gluconate 324 Mg Tablet 324 Mg PO DAILY Finasteride 5 Mg Tablet 5 Mg PO DAILY Fosinopril Sodium 20 Mg Tablet 20 Mg PO DAILY Lasix (Furosemide) 20 Mg Tablet 20 Mg PO DAILY Neurontin (Gabapentin) 300 Mg Capsule 300 Mg PO TID Levothyroxine Sodium 100 Mcg Tablet 100 Mcg PO DAILY07 Namenda Xr (Memantine Hcl) 28 Mg Cap.spr.24 28 Mg PO DAILY Namenda Xr (Memantine Hcl) 1 Each Cap24.dspk 1 Each PO DAILY Pantoprazole Sodium 40 Mg Tablet.dr 40 Mg PO BID Seroquel (Quetiapine Fumarate) 25 Mg Tablet 25 Mg PO PRN Q12HR PRN Zoloft (Sertraline Hcl) 100 Mg Tablet 100 Mg PO DAILY I have reviewed the current psychotropics carefully including drug interactions. Risk benefit ratio favors no change other than as noted in my dictated progress note. Diagnosis: Problems: (1) Dementia, vascular, with depression (2) Dementia in Alzheimer's disease with delusions (3) Dementia in Alzheimer's disease with depression (4) Impulse control disorder (5) Dementia, vascular, with delusions (6) Anxiety disorder DOMONIQUE ROWELL MD August 22, 2017 18:45
[2017-08-22] MEDS: DONEPEZIL HCL 10 MG TABLET PO SCH (19:56)
[2017-08-22] MEDS: ATORVASTATIN CALCIUM 20 MG TABLET PO SCH (19:57)
[2017-08-22] MEDS: QUEtiapine 25 MG TABLET. PO SCH (19:58)
[2017-08-23] MEDS: QUEtiapine 25 MG TABLET. PO PRN ×2 (01:35→20:10)
[2017-08-23] MEDS: ASPIRIN 325 MG TABLET PO SCH (05:04)
[2017-08-23] MEDS: GABAPENTIN 300 MG CAPSULE. PO SCH ×3 (05:04→20:09)
[2017-08-23] MEDS: CARVEDILOL 6.25 MG TABLET PO SCH ×2 (05:04→17:07)
[2017-08-23] MEDS: FINASTERIDE 5 MG TABLET PO SCH (05:04)
[2017-08-23] MEDS: CLOPIDOGREL BISULFATE 75 MG TABLET PO SCH (05:04)
[2017-08-23] MEDS: PANTOPRAZOLE 40 MG TABLET. PO SCH ×2 (05:05→20:09)
[2017-08-23] MEDS: FUROSEMIDE 20 MG TABLET PO SCH (05:05)
[2017-08-23] MEDS: FERROUS SULFATE 325 MG TABLET. PO SCH (05:05)
[2017-08-23] MEDS: LISINOPRIL 20 MG TABLET PO SCH (05:05)
[2017-08-23] MEDS: SERTRALINE 100 MG TABLET. PO SCH (05:05)
[2017-08-23] MEDS: QUEtiapine 25 MG TABLET. PO SCH ×3 (05:08→21:19)
[2017-08-23] MEDS: LEVOTHYROXINE 100 MCG TABLET PO SCH (05:08)
[2017-08-23 16:30] VITALS: BP 117/71
[2017-08-23] MEDS: DONEPEZIL HCL 10 MG TABLET PO SCH (20:09)
[2017-08-23] MEDS: ATORVASTATIN CALCIUM 20 MG TABLET PO SCH (20:09)
--- NOTE | 2017-08-23 20:56 | PDOC ---
Exam Note: Jorje Note: Please also refer to the separate dictated note~for this date of service dictated separately.~Patient seen individually. Discussed the patient with Nursing staff reviewed the chart.~Reviewed interim history and current functioning. Reviewed vital signs,~Labs/ Radiology~and current medications noted below. Continue current treatment with the changes noted in the dictated addendum note Assessment: Vital Signs: Vital Signs Date Time Temp Pulse Resp B/P (MAP) Pulse Ox O2 Delivery O2 Flow Rate FiO2 08/23/17 17:07 69 117/71 08/23/17 16:30 97.5 18 94 I&O Intake and Output 08/23/17 07:00 Intake Total 120 ml Balance 120 ml Intake Oral 120 ml Current Medications: Meds: Current Medications Acetaminophen (Tylenol) 650 mg PRN Q6HRS PRN PO PAIN / TEMP; Start 08/19/17 at 20:30 Multi-Ingredient Ointment (Analgesic [place]) 1 lima PRN QID PRN TP MUSCLE PAIN; Start 08/19/17 at 20:30 Al Hydroxide/Mg Hydroxide (Mylanta Plus Xs) 15 ml PRN AFTMEALHC PRN PO DYSPEPSIA; Start 08/19/17 at 20:30 Magnesium Hydroxide (Milk Of Magnesia) 2,400 mg PRN QHS PRN PO CONSTIPATION; Start 08/19/17 at 20:30 Donepezil HCl (Aricept) 10 mg QHS PO Last administered on 08/23/17at 20:09; Start 08/19/17 at 21:00 Quetiapine Fumarate (SEROquel) 25 mg PRN Q12HR PRN PO Agitation/Delusions Last administered on 08/23/17at 20:10; Start 08/19/17 at 20:30 Sertraline HCl (Zoloft) 100 mg DAILY PO Last administered on 08/23/17at 05:05; Start 08/20/17 at 09:00 Aspirin (Sandra Aspirin) 325 mg DAILY PO Last administered on 08/23/17 05:04; Start 08/20/17 at 09:00 Carvedilol (Coreg) 6.25 mg BIDWMEALS PO Last administered on 08/23/17 17:07; Start 08/20/17 at 08:00 Clopidogrel Bisulfate (Plavix) 75 mg DAILY PO Last administered on 08/23/17 05: 04; Start 08/20/17 at 09:00 Finasteride (Proscar) 5 mg DAILY PO Last administered on 08/23/17 05:04; Start 08/20/17 at 09:00 Furosemide (Lasix) 20 mg DAILY PO Last administered on 08/23/17 05:05; Start at 09:00 Gabapentin (Neurontin) 300 mg TID PO Last administered on 08/23/17 20:09; Start 08/19/17 at 21:00 Levothyroxine Sodium (Synthroid) 100 mcg DAILY07 PO Last administered on 05:08; Start 08/20/17 at 07:00; Stop 08/23/17 at 12:48; Status DC Pantoprazole Sodium (Protonix) 40 mg BID PO Last administered on 08/23/17 20:09 ; Start 08/19/17 at 21:00 Atorvastatin Calcium (Lipitor) 40 mg QHS PO Last administered on 08/23/17 20:09 ; Start 08/19/17 at 21:00 Ferrous Sulfate (Feosol) 325 mg DAILY PO Last administered on 08/23/17 05:05; Start 08/20/17 at 09:00 Lisinopril (Prinivil) 20 mg DAILY PO Last administered on 08/23/17 05:05; Start 08/20/17 at 09:00 Olanzapine (ZyPREXA ZYDIS) 2.5 mg PRN Q2HR PRN PO PSYCHOSIS Last administered on 08/22/17 12:11; Start 08/20/17 at 03:30 Vitamin D (Vitamin D3) 50,000 unit WEEKLY PO Last administered on 08/20/17 19: 50; Start 08/20/17 at 19:00 Risperidone (RisperDAL) 0.25 mg HS SL Last administered on 08/21/17 19:46; Start 08/20/17 at 21:00; Stop 08/22/17 at 19:24; Status DC Quetiapine Fumarate (SEROquel) 50 mg QHS PO Last administered on 08/22/17 19:58 ; Start 08/22/17 at 21:00 Quetiapine Fumarate (SEROquel) 12.5 mg DAILY@0900 PO Last administered on 5/7/ 18at 09:41; Start 08/23/17 at 09:00; Stop 08/23/17 at 19:33; Status DC Levothyroxine Sodium (Synthroid) 125 mcg DAILY07 PO ; Start 08/24/17 at 07:00 Quetiapine Fumarate (SEROquel) 12.5 mg TID@0900,1300,1700 PO ; Start 08/24/17 at 09:00 Active Scripts Active Reported [place] 10-325 Tablet (Hydrocodone Bit/Acetaminophen) 1 Each Tablet 1 Tab PO PRN Q6HRS PRN Aspirin 325 Mg Tablet 325 Mg PO DAILY Atorvastatin Calcium 40 Mg Tablet 40 Mg PO QHS Carvedilol 6.25 Mg Tablet 6.25 Mg PO BIDWMEALS Plavix (Clopidogrel Bisulfate) 75 Mg Tablet 75 Mg PO DAILY Aricept (Donepezil Hcl) 10 Mg Tablet 10 Mg PO QHS Ferrous Gluconate 324 Mg Tablet 324 Mg PO DAILY Finasteride 5 Mg Tablet 5 Mg PO DAILY Fosinopril Sodium 20 Mg Tablet 20 Mg PO DAILY Lasix (Furosemide) 20 Mg Tablet 20 Mg PO DAILY Neurontin (Gabapentin) 300 Mg Capsule 300 Mg PO TID Levothyroxine Sodium 100 Mcg Tablet 100 Mcg PO DAILY07 Namenda Xr (Memantine Hcl) 28 Mg Cap.spr.24 28 Mg PO DAILY Namenda Xr (Memantine Hcl) 1 Each Cap24.dspk 1 Each PO DAILY Pantoprazole Sodium 40 Mg Tablet.dr 40 Mg PO BID Seroquel (Quetiapine Fumarate) 25 Mg Tablet 25 Mg PO PRN Q12HR PRN Zoloft (Sertraline Hcl) 100 Mg Tablet 100 Mg PO DAILY I have reviewed the current psychotropics carefully including drug interactions. Risk benefit ratio favors no change other than as noted in my dictated progress note. Diagnosis: Problems: (1) Dementia, vascular, with depression (2) Dementia in Alzheimer's disease with depression (3) Dementia in Alzheimer's disease with delusions (4) Major neurocognitive disorder (5) Anxiety disorder (6) Delusion (7) Dementia, vascular, with delusions (8) Impulse control disorder DOMONIQUE ROWELL MD August 23, 2017 20:56
--- NOTE | 2017-08-24 03:11 | PN ---
DATE: 08/21/2017 This is a late entry of 08/21/2017 covers elements not covered in my initial note of 08/21/2017. SUBJECTIVE: I met with the patient in the evening. The patient remains somewhat withdrawn, angry, irritable at times. REVIEW OF SYSTEMS: Ambulation with walker. No CV, , pulmonary, eye system symptoms on review. MENTAL STATUS EXAM: Oriented to himself. Insight, judgment, recent memory is impaired. Language function intact. Attention span short. Mood and affect is depressed. No suicidal or homicidal ideation. LABORATORY DATA: Reviewed. IMPRESSION: Unchanged from initial note. PLAN: Continue psychotropics mentioned in my initial note including Zoloft along with Aricept and Risperdal was initiated at 0.25 mg p.o. at bedtime for his psychotic symptoms. Adjust further as clinically indicated. MAN Evans ROWELL MD DR: HERNANDEZ/hafsa JOB#: [id number] / [id number]
--- NOTE | 2017-08-24 03:15 | PN ---
DATE: 08/22/2017 This is a late entry of 08/22/2017 covers elements not covered in my initial note of 08/22/2017. SUBJECTIVE: I met with the patient in the evening. The patient slept 3-1/2 hours, putting himself on the floor many times during the day, was extremely anxious, irritable, labile, tried to punch nursing staff, called the nursing staff "stupid." Previous evening, he was up and down according to nursing staff all night, wandering into other patient's rooms, quite confused. P.r.n. Seroquel seemed to help quite a bit more than the scheduled Risperdal. REVIEW OF SYSTEMS: Ambulation impaired with walker. No CV, , pulmonary, eye system symptoms on review. MENTAL STATUS EXAM: Oriented to himself and situation. Speech has some latency, coherent, often responses monosyllabic. Abstraction fair, computation impaired, language function intact, attention span short. Mood and affect remain somewhat labile, intermittently psychotic. LABORATORY DATA: Reviewed. IMPRESSION: Major neurocognitive disorder, Alzheimer, vascular with delusion, depression, major depressive disorder; anxiety disorder, unspecified; impulse control disorder, unspecified. PLAN: Change Risperdal 0.25 mg at bedtime to Seroquel 50 mg at bedtime and add Seroquel 12.5 mg in the morning. Continue rest unchanged including Zoloft. Consider Depakote as a mood stabilizer. DOMONIQUE ROWELL MD DR: HERNANDEZ/hafsa JOB#: [id number] / [id number]
[2017-08-24] MEDS: LEVOTHYROXINE 125 MCG TABLET PO SCH (05:39)
[2017-08-24 06:18] VITALS: BP 110/67
[2017-08-24] MEDS: CARVEDILOL 6.25 MG TABLET PO SCH ×2 (08:52→18:17)
[2017-08-24] MEDS: FERROUS SULFATE 325 MG TABLET. PO SCH (08:52)
[2017-08-24] MEDS: SERTRALINE 100 MG TABLET. PO SCH (08:52)
[2017-08-24] MEDS: PANTOPRAZOLE 40 MG TABLET. PO SCH ×2 (08:52→23:02)
[2017-08-24] MEDS: FUROSEMIDE 20 MG TABLET PO SCH (08:52)
[2017-08-24] MEDS: GABAPENTIN 300 MG CAPSULE. PO SCH ×3 (08:52→23:02)
[2017-08-24] MEDS: LISINOPRIL 20 MG TABLET PO SCH (08:53)
[2017-08-24] MEDS: FINASTERIDE 5 MG TABLET PO SCH (08:53)
[2017-08-24] MEDS: CLOPIDOGREL BISULFATE 75 MG TABLET PO SCH (08:53)
[2017-08-24] MEDS: ASPIRIN 325 MG TABLET PO SCH (08:53)
[2017-08-24] MEDS: QUEtiapine 25 MG TABLET. PO SCH ×4 (08:54→23:02)
[2017-08-24 16:13] VITALS: BP 127/72
--- NOTE | 2017-08-24 20:50 | PDOC ---
Exam Note: Jorje Note: Please also refer to the separate dictated note~for this date of service dictated separately.~Patient seen individually. Discussed the patient with Nursing staff reviewed the chart.~Reviewed interim history and current functioning. Reviewed vital signs,~Labs/ Radiology~and current medications noted below. Continue current treatment with the changes noted in the dictated addendum note Assessment: Vital Signs: Vital Signs Date Time Temp Pulse Resp B/P (MAP) Pulse Ox O2 Delivery O2 Flow Rate FiO2 08/24/17 18:17 78 127/72 08/24/17 16:13 97.0 20 93 I&O Intake and Output 08/24/17 07:00 Intake Total 1040 ml Balance 1040 ml Intake Oral 1040 ml Current Medications: Meds: Current Medications Acetaminophen (Tylenol) 650 mg PRN Q6HRS PRN PO PAIN / TEMP; Start 08/19/17 at 20:30 Multi-Ingredient Ointment (Analgesic [place]) 1 lima PRN QID PRN TP MUSCLE PAIN; Start 08/19/17 at 20:30 Al Hydroxide/Mg Hydroxide (Mylanta Plus Xs) 15 ml PRN AFTMEALHC PRN PO DYSPEPSIA; Start 08/19/17 at 20:30 Magnesium Hydroxide (Milk Of Magnesia) 2,400 mg PRN QHS PRN PO CONSTIPATION; Start 08/19/17 at 20:30 Donepezil HCl (Aricept) 10 mg QHS PO Last administered on 08/23/17at 20:09; Start 08/19/17 at 21:00 Quetiapine Fumarate (SEROquel) 25 mg PRN Q12HR PRN PO Agitation/Delusions Last administered on 08/23/17at 20:10; Start 08/19/17 at 20:30 Sertraline HCl (Zoloft) 100 mg DAILY PO Last administered on 08/24/17 08:52; Start 08/20/17 at 09:00 Aspirin (Sandra Aspirin) 325 mg DAILY PO Last administered on 08/24/17 08:53; Start 08/20/17 at 09:00 Carvedilol (Coreg) 6.25 mg BIDWMEALS PO Last administered on 08/24/17 18:17; Start 08/20/17 at 08:00 Clopidogrel Bisulfate (Plavix) 75 mg DAILY PO Last administered on 08/24/17 08: 53; Start 08/20/17 at 09:00 Finasteride (Proscar) 5 mg DAILY PO Last administered on 08/24/17 08:53; Start 08/20/17 at 09:00 Furosemide (Lasix) 20 mg DAILY PO Last administered on 08/24/17 08:52; Start at 09:00 Gabapentin (Neurontin) 300 mg TID PO Last administered on 08/24/17 13:17; Start 08/19/17 at 21:00 Levothyroxine Sodium (Synthroid) 100 mcg DAILY07 PO Last administered on 05:08; Start 08/20/17 at 07:00; Stop 08/23/17 at 12:48; Status DC Pantoprazole Sodium (Protonix) 40 mg BID PO Last administered on 08/24/17 08:52 ; Start 08/19/17 at 21:00 Atorvastatin Calcium (Lipitor) 40 mg QHS PO Last administered on 08/23/17 20:09 ; Start 08/19/17 at 21:00 Ferrous Sulfate (Feosol) 325 mg DAILY PO Last administered on 08/24/17 08:52; Start 08/20/17 at 09:00 Lisinopril (Prinivil) 20 mg DAILY PO Last administered on 08/24/17 08:53; Start 08/20/17 at 09:00 Olanzapine (ZyPREXA ZYDIS) 2.5 mg PRN Q2HR PRN PO PSYCHOSIS Last administered on 08/23/17 21:19; Start 08/20/17 at 03:30 Vitamin D (Vitamin D3) 50,000 unit WEEKLY PO Last administered on 08/20/17 19: 50; Start 08/20/17 at 19:00 Risperidone (RisperDAL) 0.25 mg HS SL Last administered on 08/21/17 19:46; Start 08/20/17 at 21:00; Stop 08/22/17 at 19:24; Status DC Quetiapine Fumarate (SEROquel) 50 mg QHS PO Last administered on 08/23/17 21:19 ; Start 08/22/17 at 21:00 Quetiapine Fumarate (SEROquel) 12.5 mg DAILY@0900 PO Last administered on 5/7/ 18at 09:41; Start 08/23/17 at 09:00; Stop 08/23/17 at 19:33; Status DC Levothyroxine Sodium (Synthroid) 125 mcg DAILY07 PO Last administered on at 05:39; Start 08/24/17 at 07:00 Quetiapine Fumarate (SEROquel) 12.5 mg TID@0900,1300,1700 PO Last administered on 08/24/17at 18:19; Start 08/24/17 at 09:00 Active Scripts Active Reported [place] 10-325 Tablet (Hydrocodone Bit/Acetaminophen) 1 Each Tablet 1 Tab PO PRN Q6HRS PRN Aspirin 325 Mg Tablet 325 Mg PO DAILY Atorvastatin Calcium 40 Mg Tablet 40 Mg PO QHS Carvedilol 6.25 Mg Tablet 6.25 Mg PO BIDWMEALS Plavix (Clopidogrel Bisulfate) 75 Mg Tablet 75 Mg PO DAILY Aricept (Donepezil Hcl) 10 Mg Tablet 10 Mg PO QHS Ferrous Gluconate 324 Mg Tablet 324 Mg PO DAILY Finasteride 5 Mg Tablet 5 Mg PO DAILY Fosinopril Sodium 20 Mg Tablet 20 Mg PO DAILY Lasix (Furosemide) 20 Mg Tablet 20 Mg PO DAILY Neurontin (Gabapentin) 300 Mg Capsule 300 Mg PO TID Levothyroxine Sodium 100 Mcg Tablet 100 Mcg PO DAILY07 Namenda Xr (Memantine Hcl) 28 Mg Cap.spr.24 28 Mg PO DAILY Namenda Xr (Memantine Hcl) 1 Each Cap24.dspk 1 Each PO DAILY Pantoprazole Sodium 40 Mg Tablet.dr 40 Mg PO BID Seroquel (Quetiapine Fumarate) 25 Mg Tablet 25 Mg PO PRN Q12HR PRN Zoloft (Sertraline Hcl) 100 Mg Tablet 100 Mg PO DAILY I have reviewed the current psychotropics carefully including drug interactions. Risk benefit ratio favors no change other than as noted in my dictated progress note. Diagnosis: Problems: (1) Dementia, vascular, with depression (2) Dementia in Alzheimer's disease with depression (3) Dementia in Alzheimer's disease with delusions (4) Major neurocognitive disorder (5) Anxiety disorder (6) Delusion (7) Dementia, vascular, with delusions (8) Impulse control disorder DOMONIQUE ROWELL MD August 24, 2017 20:50
--- NOTE | 2017-08-24 22:39 | PN ---
DATE: 08/23/2017 This late entry of 08/23/2017 covers elements not covered in my initial note of 08/23/2017. SUBJECTIVE: I met with the patient in the evening. The patient slept 7-1/4 hours, was yelling in the morning, repeatedly saying help, help, banging on the [place], wanting to call the police, quite dramatic. Nursing assisted the patient to the floor. He urinated on the floor, acting helpless, quite psychotic, confused. REVIEW OF SYSTEMS: Impaired ambulation with walker. No CV, , pulmonary, eye, ENT system symptoms on review. Reliability poor. MENTAL STATUS EXAM: Oriented to himself. Insight, judgment, recent and remote memory, attention, concentration, fund of knowledge poor, consistent with his diagnosis. IMPRESSION: Major neurocognitive disorder, Alzheimer, vascular with depression, delusion, behavioral disturbance. Rest unchanged. PLAN: The patient does respond to p.r.n. Seroquel. We will increase the daytime 12.5 mg at 09:00 a.m. to 3 times a day and continue 50 mg at bedtime, stop the Risperdal. Rest unchanged per initial note. MAN Evans ROWELL MD DR: HERNANDEZ/hafsa JOB#: [id number] / [id number]
[2017-08-24] MEDS: ATORVASTATIN CALCIUM 20 MG TABLET PO SCH (23:02)
[2017-08-24] MEDS: DONEPEZIL HCL 10 MG TABLET PO SCH (23:03)
[2017-08-25 05:58] VITALS: BP 93/60
[2017-08-25] MEDS: LEVOTHYROXINE 125 MCG TABLET PO SCH (06:26)
[2017-08-25] MEDS: CARVEDILOL 6.25 MG TABLET PO SCH ×2 (08:00→16:53)
[2017-08-25 08:07] VITALS: BP 116/56
[2017-08-25] MEDS: LISINOPRIL 20 MG TABLET PO SCH (09:00)
[2017-08-25] MEDS: FUROSEMIDE 20 MG TABLET PO SCH (09:00)
[2017-08-25] MEDS: SERTRALINE 100 MG TABLET. PO SCH (09:16)
[2017-08-25] MEDS: ASPIRIN 325 MG TABLET PO SCH (09:16)
[2017-08-25] MEDS: QUEtiapine 25 MG TABLET. PO SCH ×4 (09:17→21:01)
[2017-08-25] MEDS: CLOPIDOGREL BISULFATE 75 MG TABLET PO SCH (09:17)
[2017-08-25] MEDS: FINASTERIDE 5 MG TABLET PO SCH (09:19)
[2017-08-25] MEDS: FERROUS SULFATE 325 MG TABLET. PO SCH (09:19)
[2017-08-25] MEDS: PANTOPRAZOLE 40 MG TABLET. PO SCH ×2 (09:19→21:01)
[2017-08-25] MEDS: GABAPENTIN 300 MG CAPSULE. PO SCH ×3 (11:10→21:01)
[2017-08-25 11:50] VITALS: BP 122/66
[2017-08-25 18:15] VITALS: BP 123/67
[2017-08-25] MEDS: ATORVASTATIN CALCIUM 20 MG TABLET PO SCH (21:01)
[2017-08-25] MEDS: DONEPEZIL HCL 10 MG TABLET PO SCH (21:01)
[2017-08-25] MEDS: MIRTAZAPINE 7.5 MG TABLET. PO SCH (21:02)
--- NOTE | 2017-08-25 22:16 | PDOC ---
Exam Note: Jorje Note: Please also refer to the separate dictated note~for this date of service dictated separately.~Patient seen individually. Discussed the patient with Nursing staff reviewed the chart.~Reviewed interim history and current functioning. Reviewed vital signs,~Labs/ Radiology~and current medications noted below. Continue current treatment with the changes noted in the dictated addendum note Assessment: Vital Signs: Vital Signs Date Time Temp Pulse Resp B/P (MAP) Pulse Ox O2 Delivery O2 Flow Rate FiO2 08/25/17 18:15 97.1 78 18 123/67 (85) 94 08/25/17 11:50 Room Air I&O Intake and Output 08/25/17 07:00 Intake Total 1320 ml Balance 1320 ml Intake Oral 1320 ml Current Medications: Meds: Current Medications Acetaminophen (Tylenol) 650 mg PRN Q6HRS PRN PO PAIN / TEMP; Start 08/19/17 at 20:30 Multi-Ingredient Ointment (Analgesic [place]) 1 lima PRN QID PRN TP MUSCLE PAIN; Start 08/19/17 at 20:30 Al Hydroxide/Mg Hydroxide (Mylanta Plus Xs) 15 ml PRN AFTMEALHC PRN PO DYSPEPSIA; Start 08/19/17 at 20:30 Magnesium Hydroxide (Milk Of Magnesia) 2,400 mg PRN QHS PRN PO CONSTIPATION; Start 08/19/17 at 20:30 Donepezil HCl (Aricept) 10 mg QHS PO Last administered on 08/25/17at 21:01; Start 08/19/17 at 21:00 Quetiapine Fumarate (SEROquel) 25 mg PRN Q12HR PRN PO Agitation/Delusions Last administered on 08/23/17at 20:10; Start 08/19/17 at 20:30 Sertraline HCl (Zoloft) 100 mg DAILY PO Last administered on 08/25/17at 09:16; Start 08/20/17 at 09:00 Aspirin (Sandra Aspirin) 325 mg DAILY PO Last administered on 08/25/17at 09:16; Start 08/20/17 at 09:00 Carvedilol (Coreg) 6.25 mg BIDWMEALS PO Last administered on 08/25/17at 16:53; Start 08/20/17 at 08:00 Clopidogrel Bisulfate (Plavix) 75 mg DAILY PO Last administered on 08/25/17 09: 17; Start 08/20/17 at 09:00 Finasteride (Proscar) 5 mg DAILY PO Last administered on 08/25/17 09:19; Start 08/20/17 at 09:00 Furosemide (Lasix) 20 mg DAILY PO Last administered on 08/24/17 08:52; Start at 09:00 Gabapentin (Neurontin) 300 mg TID PO Last administered on 08/25/17 21:01; Start 08/19/17 at 21:00 Levothyroxine Sodium (Synthroid) 100 mcg DAILY07 PO Last administered on 05:08; Start 08/20/17 at 07:00; Stop 08/23/17 at 12:48; Status DC Pantoprazole Sodium (Protonix) 40 mg BID PO Last administered on 08/25/17 21:01 ; Start 08/19/17 at 21:00 Atorvastatin Calcium (Lipitor) 40 mg QHS PO Last administered on 08/25/17 21:01 ; Start 08/19/17 at 21:00 Ferrous Sulfate (Feosol) 325 mg DAILY PO Last administered on 08/25/17 09:19; Start 08/20/17 at 09:00 Lisinopril (Prinivil) 20 mg DAILY PO Last administered on 08/24/17 08:53; Start 08/20/17 at 09:00 Olanzapine (ZyPREXA ZYDIS) 2.5 mg PRN Q2HR PRN PO PSYCHOSIS Last administered on 08/25/17 08:01; Start 08/20/17 at 03:30 Vitamin D (Vitamin D3) 50,000 unit WEEKLY PO Last administered on 08/20/17 19: 50; Start 08/20/17 at 19:00 Risperidone (RisperDAL) 0.25 mg HS SL Last administered on 08/21/17 19:46; Start 08/20/17 at 21:00; Stop 08/22/17 at 19:24; Status DC Quetiapine Fumarate (SEROquel) 50 mg QHS PO Last administered on 08/25/17 21:01 ; Start 08/22/17 at 21:00 Quetiapine Fumarate (SEROquel) 12.5 mg DAILY@0900 PO Last administered on at 09:41; Start 08/23/17 at 09:00; Stop 08/23/17 at 19:33; Status DC Levothyroxine Sodium (Synthroid) 125 mcg DAILY07 PO Last administered on at 06:26; Start 08/24/17 at 07:00 Quetiapine Fumarate (SEROquel) 12.5 mg TID@0900,1300,1700 PO Last administered on 08/25/17at 16:52; Start 08/24/17 at 09:00 Mirtazapine (Remeron) 7.5 mg QHS PO Last administered on 08/25/17at 21:02; Start 08/25/17 at 21:00 Active Scripts Active Reported [place] 10-325 Tablet (Hydrocodone Bit/Acetaminophen) 1 Each Tablet 1 Tab PO PRN Q6HRS PRN Aspirin 325 Mg Tablet 325 Mg PO DAILY Atorvastatin Calcium 40 Mg Tablet 40 Mg PO QHS Carvedilol 6.25 Mg Tablet 6.25 Mg PO BIDWMEALS Plavix (Clopidogrel Bisulfate) 75 Mg Tablet 75 Mg PO DAILY Aricept (Donepezil Hcl) 10 Mg Tablet 10 Mg PO QHS Ferrous Gluconate 324 Mg Tablet 324 Mg PO DAILY Finasteride 5 Mg Tablet 5 Mg PO DAILY Fosinopril Sodium 20 Mg Tablet 20 Mg PO DAILY Lasix (Furosemide) 20 Mg Tablet 20 Mg PO DAILY Neurontin (Gabapentin) 300 Mg Capsule 300 Mg PO TID Levothyroxine Sodium 100 Mcg Tablet 100 Mcg PO DAILY07 Namenda Xr (Memantine Hcl) 28 Mg Cap.spr.24 28 Mg PO DAILY Namenda Xr (Memantine Hcl) 1 Each Cap24.dspk 1 Each PO DAILY Pantoprazole Sodium 40 Mg Tablet.dr 40 Mg PO BID Seroquel (Quetiapine Fumarate) 25 Mg Tablet 25 Mg PO PRN Q12HR PRN Zoloft (Sertraline Hcl) 100 Mg Tablet 100 Mg PO DAILY I have reviewed the current psychotropics carefully including drug interactions. Risk benefit ratio favors no change other than as noted in my dictated progress note. Diagnosis: Problems: (1) Dementia, vascular, with depression (2) Dementia in Alzheimer's disease with depression (3) Dementia in Alzheimer's disease with delusions (4) Major neurocognitive disorder (5) Anxiety disorder (6) Delusion (7) Dementia, vascular, with delusions (8) Impulse control disorder DOMONIQUE ROWELL MD August 25, 2017 22:16
--- NOTE | 2017-08-26 01:13 | PN ---
DATE: 08/24/2017 This is a late entry of 08/24/2017 covers elements not covered in my initial note of 08/24/2017. SUBJECTIVE: I met with the patient in the evening. The patient slept 5 hours previous evening, somewhat anxious, restless at times. Speech is word salad, refused his bedtime medications unless he called his and then was upset that he called her. I had received some Seroquel and Zyprexa at bedtime to help with his agitation, mood lability. REVIEW OF SYSTEMS: Ambulation impaired with walker. No CV, , pulmonary, eye, ENT system symptoms on review. MENTAL STATUS EXAM: Oriented to himself. Insight, judgment, recent and remote memory, attention, concentration, fund of knowledge poor, consistent with his diagnosis mentioned in my initial note. PLAN: Continue current psychotropics including the Seroquel and Zoloft. May need to increase the Zoloft. DOMONIQUE ROWELL MD DR: HERNANDEZ/hafsa JOB#: [id number] / [id number]
[2017-08-26] MEDS: QUEtiapine 25 MG TABLET. PO PRN (02:16)
[2017-08-26] MEDS: LEVOTHYROXINE 125 MCG TABLET PO SCH (07:00)
[2017-08-26] MEDS: CARVEDILOL 6.25 MG TABLET PO SCH ×2 (08:00→17:00)
[2017-08-26] MEDS: LISINOPRIL 20 MG TABLET PO SCH (09:00)
[2017-08-26] MEDS: ASPIRIN 325 MG TABLET PO SCH (09:26)
[2017-08-26] MEDS: GABAPENTIN 300 MG CAPSULE. PO SCH ×3 (09:27→21:27)
[2017-08-26] MEDS: FERROUS SULFATE 325 MG TABLET. PO SCH (09:27)
[2017-08-26] MEDS: CLOPIDOGREL BISULFATE 75 MG TABLET PO SCH (09:27)
[2017-08-26] MEDS: FUROSEMIDE 20 MG TABLET PO SCH (09:27)
[2017-08-26] MEDS: PANTOPRAZOLE 40 MG TABLET. PO SCH ×2 (09:28→21:27)
[2017-08-26] MEDS: QUEtiapine 25 MG TABLET. PO SCH ×3 (09:28→21:27)
[2017-08-26] MEDS: SERTRALINE 100 MG TABLET. PO SCH (09:28)
[2017-08-26] MEDS: FINASTERIDE 5 MG TABLET PO SCH (09:28)
[2017-08-26 09:35] VITALS: BP 103/59
[2017-08-26 13:10] LABS: BASO # 0.1 x10^3/uL (0.0-0.2); BASO % 2 % (0-3); EOS # 0.2 x10^3/uL (0.0-0.7); EOS % 6 % (0-3); HEMOGLOBIN 11.8 g/dL (13.0-17.5); LYMPH # 0.6 x10^3/uL (1.0-4.8); LYMPH % 14 % (24-48); MEAN CORPUSCULAR HEMOGLOBIN 31 pg (25-35); MEAN CORPUSCULAR HGB CONC 33 g/dL (31-37); MEAN CORPUSCULAR VOLUME 94 fL (79-100); MONO # 0.5 x10^3/uL (0.0-1.1); MONO % 14 % (0-9); NEUT # 2.6 x10^3uL (1.8-7.7); NEUT % 65 % (31-73); PLATELET COUNT 108 x10^3/uL (140-400); RED BLOOD COUNT 3.85 x10^6/uL (4.30-5.70); RED CELL DISTRIBUTION WIDTH 20.8 % (11.5-14.5); WHITE BLOOD COUNT 4.1 x10^3/uL (4.0-11.0)
[2017-08-26 13:31] LABS: ALBUMIN 3.1 g/dL (3.4-5.0); ALBUMIN/GLOBULIN RATIO 0.9 (1.0-1.7); CALCIUM 8.3 mg/dL (8.5-10.1); CREATININE 0.9 mg/dL (0.7-1.3); TOTAL BILIRUBIN 0.8 mg/dL (0.2-1.0); TOTAL PROTEIN 6.6 g/dL (6.4-8.2)
[2017-08-26 18:15] VITALS: BP 131/66
--- NOTE | 2017-08-26 20:47 | PDOC ---
Exam Note: Jorje Note: Please also refer to the separate dictated note~for this date of service dictated separately.~Patient seen individually. Discussed the patient with Nursing staff reviewed the chart.~Reviewed interim history and current functioning. Reviewed vital signs,~Labs/ Radiology~and current medications noted below. Continue current treatment with the changes noted in the dictated addendum note Assessment: Vital Signs: Vital Signs Date Time Temp Pulse Resp B/P (MAP) Pulse Ox O2 Delivery O2 Flow Rate FiO2 08/26/17 18:15 97.3 68 18 131/66 (87) 97 08/25/17 11:50 Room Air I&O Intake and Output 08/26/17 07:00 Intake Total 1200 ml Balance 1200 ml Intake Oral 1200 ml # Voids 1 Labs: Laboratory Tests Test 08/26/17 13:00 White Blood Count 4.1 x10^3/uL (4.0-11.0) Red Blood Count 3.85 x10^6/uL (4.30-5.70) L Hemoglobin 11.8 g/dL (13.0-17.5) L Hematocrit 36.0 % (39.0-53.0) L Mean Corpuscular Volume 94 fL (79-100) Mean Corpuscular Hemoglobin 31 pg (25-35) Mean Corpuscular Hemoglobin Concent 33 g/dL (31-37) Red Cell Distribution Width 20.8 % (11.5-14.5) H Platelet Count 108 x10^3/uL (140-400) L Neutrophils (%) (Auto) 65 % (31-73) Lymphocytes (%) (Auto) 14 % (24-48) L Monocytes (%) (Auto) 14 % (0-9) H Eosinophils (%) (Auto) 6 % (0-3) H Basophils (%) (Auto) 2 % (0-3) Neutrophils # (Auto) 2.6 x10^3uL (1.8-7.7) Lymphocytes # (Auto) 0.6 x10^3/uL (1.0-4.8) L Monocytes # (Auto) 0.5 x10^3/uL (0.0-1.1) Eosinophils # (Auto) 0.2 x10^3/uL (0.0-0.7) Basophils # (Auto) 0.1 x10^3/uL (0.0-0.2) Sodium Level 146 mmol/L (136-145) H Potassium Level 4.0 mmol/L (3.5-5.1) Chloride Level 107 mmol/L (98-107) Carbon Dioxide Level 32 mmol/L (21-32) Anion Gap 7 (6-14) Blood Urea Nitrogen 14 mg/dL (8-26) Creatinine 0.9 mg/dL (0.7-1.3) Estimated GFR (Cockcroft-Gault) 81.0 BUN/Creatinine Ratio 16 (6-20) Glucose Level 94 mg/dL (70-99) Calcium Level 8.3 mg/dL (8.5-10.1) L Total Bilirubin 0.8 mg/dL (0.2-1.0) Aspartate Amino Transferase (AST) 21 U/L (15-37) Alanine Aminotransferase (ALT) 20 U/L (16-63) Alkaline Phosphatase 83 U/L (46-116) Total Protein 6.6 g/dL (6.4-8.2) Albumin 3.1 g/dL (3.4-5.0) L Albumin/Globulin Ratio 0.9 (1.0-1.7) L Current Medications: Meds: Current Medications Acetaminophen (Tylenol) 650 mg PRN Q6HRS PRN PO PAIN / TEMP; Start 08/19/17 at 20:30 Multi-Ingredient Ointment (Analgesic [place]) 1 lima PRN QID PRN TP MUSCLE PAIN; Start 08/19/17 at 20:30 Al Hydroxide/Mg Hydroxide (Mylanta Plus Xs) 15 ml PRN AFTMEALHC PRN PO DYSPEPSIA; Start 08/19/17 at 20:30 Magnesium Hydroxide (Milk Of Magnesia) 2,400 mg PRN QHS PRN PO CONSTIPATION; Start 08/19/17 at 20:30 Donepezil HCl (Aricept) 10 mg QHS PO Last administered on 08/25/17at 21:01; Start 08/19/17 at 21:00 Quetiapine Fumarate (SEROquel) 25 mg PRN Q12HR PRN PO Agitation/Delusions Last administered on 08/26/17at 02:16; Start 08/19/17 at 20:30 Sertraline HCl (Zoloft) 100 mg DAILY PO Last administered on 08/26/17 09:28; Start 08/20/17 at 09:00 Aspirin (Sandra Aspirin) 325 mg DAILY PO Last administered on 08/26/17 09:26; Start 08/20/17 at 09:00 Carvedilol (Coreg) 6.25 mg BIDWMEALS PO Last administered on 08/25/17 16:53; Start 08/20/17 at 08:00 Clopidogrel Bisulfate (Plavix) 75 mg DAILY PO Last administered on 08/26/17 09 :27; Start 08/20/17 at 09:00 Finasteride (Proscar) 5 mg DAILY PO Last administered on 08/26/17 09:28; Start 08/20/17 at 09:00 Furosemide (Lasix) 20 mg DAILY PO Last administered on 08/26/17 09:27; Start 08/20/17 at 09:00 Gabapentin (Neurontin) 300 mg TID PO Last administered on 08/26/17 14:17; Start 08/19/17 at 21:00 Levothyroxine Sodium (Synthroid) 100 mcg DAILY07 PO Last administered on 05:08; Start 08/20/17 at 07:00; Stop 08/23/17 at 12:48; Status DC Pantoprazole Sodium (Protonix) 40 mg BID PO Last administered on 08/26/17 09: 28; Start 08/19/17 at 21:00 Atorvastatin Calcium (Lipitor) 40 mg QHS PO Last administered on 08/25/17 21:01 ; Start 08/19/17 at 21:00 Ferrous Sulfate (Feosol) 325 mg DAILY PO Last administered on 08/26/17 09:27; Start 08/20/17 at 09:00 Lisinopril (Prinivil) 20 mg DAILY PO Last administered on 08/24/17 08:53; Start 08/20/17 at 09:00 Olanzapine (ZyPREXA ZYDIS) 2.5 mg PRN Q2HR PRN PO PSYCHOSIS Last administered on 08/25/17 08:01; Start 08/20/17 at 03:30 Vitamin D (Vitamin D3) 50,000 unit WEEKLY PO Last administered on 08/20/17 19: 50; Start 08/20/17 at 19:00 Risperidone (RisperDAL) 0.25 mg HS SL Last administered on 08/21/17at 19:46; Start 08/20/17 at 21:00; Stop 08/22/17 at 19:24; Status DC Quetiapine Fumarate (SEROquel) 50 mg QHS PO Last administered on 08/25/17at 21:01 ; Start 08/22/17 at 21:00 Quetiapine Fumarate (SEROquel) 12.5 mg DAILY@0900 PO Last administered on at 09:41; Start 08/23/17 at 09:00; Stop 08/23/17 at 19:33; Status DC Levothyroxine Sodium (Synthroid) 125 mcg DAILY07 PO Last administered on at 06:26; Start 08/24/17 at 07:00 Quetiapine Fumarate (SEROquel) 12.5 mg TID@0900,1300,1700 PO Last administered on 08/26/17at 09:28; Start 08/24/17 at 09:00; Stop 08/26/17 at 12:52; Status DC Mirtazapine (Remeron) 7.5 mg QHS PO Last administered on 08/25/17at 21:02; Start 08/25/17 at 21:00 Quetiapine Fumarate (SEROquel) 12.5 mg BID@0900,1700 PO ; Start 08/26/17 at 17: 00 Active Scripts Active Reported [place] 10-325 Tablet (Hydrocodone Bit/Acetaminophen) 1 Each Tablet 1 Tab PO PRN Q6HRS PRN Aspirin 325 Mg Tablet 325 Mg PO DAILY Atorvastatin Calcium 40 Mg Tablet 40 Mg PO QHS Carvedilol 6.25 Mg Tablet 6.25 Mg PO BIDWMEALS Plavix (Clopidogrel Bisulfate) 75 Mg Tablet 75 Mg PO DAILY Aricept (Donepezil Hcl) 10 Mg Tablet 10 Mg PO QHS Ferrous Gluconate 324 Mg Tablet 324 Mg PO DAILY Finasteride 5 Mg Tablet 5 Mg PO DAILY Fosinopril Sodium 20 Mg Tablet 20 Mg PO DAILY Lasix (Furosemide) 20 Mg Tablet 20 Mg PO DAILY Neurontin (Gabapentin) 300 Mg Capsule 300 Mg PO TID Levothyroxine Sodium 100 Mcg Tablet 100 Mcg PO DAILY07 Namenda Xr (Memantine Hcl) 28 Mg Cap.spr.24 28 Mg PO DAILY Namenda Xr (Memantine Hcl) 1 Each Cap24.dspk 1 Each PO DAILY Pantoprazole Sodium 40 Mg Tablet.dr 40 Mg PO BID Seroquel (Quetiapine Fumarate) 25 Mg Tablet 25 Mg PO PRN Q12HR PRN Zoloft (Sertraline Hcl) 100 Mg Tablet 100 Mg PO DAILY I have reviewed the current psychotropics carefully including drug interactions. Risk benefit ratio favors no change other than as noted in my dictated progress note. Diagnosis: Problems: (1) Dementia, vascular, with depression (2) Dementia in Alzheimer's disease with depression (3) Dementia in Alzheimer's disease with delusions (4) Major neurocognitive disorder (5) Anxiety disorder (6) Delusion (7) Dementia, vascular, with delusions (8) Impulse control disorder DOMONIQUE ROWELL MD August 26, 2017 20:47
[2017-08-26] MEDS: MIRTAZAPINE 7.5 MG TABLET. PO SCH (21:27)
[2017-08-26] MEDS: DONEPEZIL HCL 10 MG TABLET PO SCH (21:27)
[2017-08-26] MEDS: ATORVASTATIN CALCIUM 20 MG TABLET PO SCH (21:27)
[2017-08-27 05:29] VITALS: BP 118/65
[2017-08-27] MEDS: FERROUS SULFATE 325 MG TABLET. PO SCH (09:08)
[2017-08-27] MEDS: LEVOTHYROXINE 125 MCG TABLET PO SCH (09:09)
[2017-08-27] MEDS: LISINOPRIL 20 MG TABLET PO SCH (09:09)
[2017-08-27] MEDS: CARVEDILOL 6.25 MG TABLET PO SCH ×2 (09:09→17:00)
[2017-08-27] MEDS: GABAPENTIN 300 MG CAPSULE. PO SCH ×2 (09:09→15:15)
[2017-08-27] MEDS: CLOPIDOGREL BISULFATE 75 MG TABLET PO SCH (09:09)
[2017-08-27] MEDS: SERTRALINE 100 MG TABLET. PO SCH (09:09)
[2017-08-27] MEDS: QUEtiapine 25 MG TABLET. PO SCH ×2 (09:10→17:00)
[2017-08-27] MEDS: PANTOPRAZOLE 40 MG TABLET. PO SCH (09:10)
[2017-08-27] MEDS: FUROSEMIDE 20 MG TABLET PO SCH (09:10)
[2017-08-27] MEDS: FINASTERIDE 5 MG TABLET PO SCH (09:10)
[2017-08-27] MEDS: ASPIRIN 325 MG TABLET PO SCH (09:10)
[2017-08-27] MEDS: CHOLECALCIFEROL (VITAMIN D3) 50,000 UNIT CAPSULE PO SCH (09:11)
[2017-08-27 16:30] LABS: HEMATOCRIT 40.4 % (39.0-53.0); HEMOGLOBIN 13.1 g/dL (13.0-17.5); RED BLOOD COUNT 4.31 x10^6/uL (4.30-5.70); RED CELL DISTRIBUTION WIDTH 21.2 % (11.5-14.5); WHITE BLOOD COUNT 2.9 x10^3/uL (4.0-11.0)
[2017-08-27 16:37] VITALS: BP 125/72
[2017-08-27 16:40] LABS: ALBUMIN 3.4 g/dL (3.4-5.0); ALBUMIN/GLOBULIN RATIO 0.9 (1.0-1.7); CALCIUM 8.8 mg/dL (8.5-10.1); GFR 71.7; POTASSIUM 4.1 mmol/L (3.5-5.1); TOTAL BILIRUBIN 0.9 mg/dL (0.2-1.0); TOTAL PROTEIN 7.2 g/dL (6.4-8.2)
--- NOTE | 2017-08-27 16:50 | RAD ---
CT of the chest without contrast, 08/27/2017: HISTORY: Choked on a piece of pork, dysphasia Noncontrast scans were obtained with multiplanar reconstructions produced. The study was partially compromised by patient respiratory motion artifact. Transvenous pacing leads extend into the right heart. The heart is generally enlarged. There is extensive calcific plaquing of the coronary arteries. There is aortic calcific plaquing without evidence of aneurysm. There has been a previous median sternotomy. A moderate-sized hiatal hernia is present. No mediastinal adenopathy is seen. There is a small amount of left-sided pleural fluid and a trace amount of right-sided pleural fluid. There are predominantly nodular patchy infiltrates in both lungs. There is relative sparing of the right upper lobe. Many of these densities demonstrate a tree-in-bud type pattern most commonly due to bronchopneumonia. The trachea and central bronchi are unremarkable. There is a mild thoracic scoliosis with moderate multilevel degenerative change. IMPRESSION: 1. Moderate bilateral pulmonary infiltrates suggesting pneumonia, possibly on an aspiration basis. 2. Small left pleural effusion. 3. Moderate sized hiatal hernia. 4. Cardiomegaly with extensive coronary artery disease. CT of the neck without contrast,, 08/27/2017: HISTORY: Choked on a piece of port, dysphasia Noncontrast scans were obtained as requested. No airway narrowing is seen. The epiglottis is normal. No laryngeal abnormality is detected. The thyroid, submandibular and parotid glands are unremarkable. There is calcific plaquing at the carotid bifurcations, moderately severe on the left. No cervical adenopathy is detected. IMPRESSION: No acute neck abnormality is detected. PQRS Compliance Statement: One or more of the following individualized dose reduction techniques were utilized for this examination: 1. Automated exposure control 2. Adjustment of the mA and/or kV according to patient size 3. Use of iterative reconstruction technique Electronically signed by: Raymundo Lehman MD (08/27/2017 4:47 PM) [facility]
[2017-08-27] MEDS ORDERED: MAGN2400 PO (18:00)
[2017-08-27] MEDS ORDERED: MAG355OR29 PO (18:03)
[2017-08-27] MEDS ORDERED: ACET500T68 PO (18:06)
[2017-08-27] MEDS ORDERED: CHOL500016 PO (18:09)
[2017-08-27] MEDS ORDERED: MIRT15TA PO ×2 (18:11→18:12)
[2017-08-27] MEDS ORDERED: OLAN2.5T3 PO (18:14)
[2017-08-27 20:04] VITALS: BP 152/73
--- NOTE | 2017-08-27 20:47 | PDOC ---
Exam Note: Jorje Note: Please also refer to the separate dictated note~for this date of service dictated separately.~Patient seen individually. Discussed the patient with Nursing staff reviewed the chart.~Reviewed interim history and current functioning. Reviewed vital signs,~Labs/ Radiology~and current medications noted below. Continue current treatment with the changes noted in the dictated addendum note Assessment: Vital Signs: Vital Signs Date Time Temp Pulse Resp B/P (MAP) Pulse Ox O2 Delivery O2 Flow Rate FiO2 08/27/17 20:04 98.5 84 22 152/73 (99) 95 2.0 08/25/17 11:50 Room Air I&O Intake and Output 08/27/17 07:00 Intake Total 720 ml Balance 720 ml Intake Oral 720 ml Labs: Laboratory Tests Test 08/27/17 16:18 White Blood Count 2.9 x10^3/uL (4.0-11.0) L Red Blood Count 4.31 x10^6/uL (4.30-5.70) Hemoglobin 13.1 g/dL (13.0-17.5) Hematocrit 40.4 % (39.0-53.0) Mean Corpuscular Volume 94 fL (79-100) Mean Corpuscular Hemoglobin 31 pg (25-35) Mean Corpuscular Hemoglobin Concent 33 g/dL (31-37) Red Cell Distribution Width 21.2 % (11.5-14.5) H Platelet Count 135 x10^3/uL (140-400) L Sodium Level 146 mmol/L (136-145) H Potassium Level 4.1 mmol/L (3.5-5.1) Chloride Level 104 mmol/L (98-107) Carbon Dioxide Level 35 mmol/L (21-32) H Anion Gap 7 (6-14) Blood Urea Nitrogen 13 mg/dL (8-26) Creatinine 1.0 mg/dL (0.7-1.3) Estimated GFR (Cockcroft-Gault) 71.7 BUN/Creatinine Ratio 13 (6-20) Glucose Level 123 mg/dL (70-99) H Calcium Level 8.8 mg/dL (8.5-10.1) Total Bilirubin 0.9 mg/dL (0.2-1.0) Aspartate Amino Transferase (AST) 24 U/L (15-37) Alanine Aminotransferase (ALT) 21 U/L (16-63) Alkaline Phosphatase 98 U/L (46-116) Total Protein 7.2 g/dL (6.4-8.2) Albumin 3.4 g/dL (3.4-5.0) Albumin/Globulin Ratio 0.9 (1.0-1.7) L Current Medications: Meds: Current Medications Acetaminophen (Tylenol) 650 mg PRN Q6HRS PRN PO PAIN / TEMP; Start 08/19/17 at 20:30 Multi-Ingredient Ointment (Analgesic [place]) 1 lima PRN QID PRN TP MUSCLE PAIN; Start 08/19/17 at 20:30 Al Hydroxide/Mg Hydroxide (Mylanta Plus Xs) 15 ml PRN AFTMEALHC PRN PO DYSPEPSIA; Start 08/19/17 at 20:30 Magnesium Hydroxide (Milk Of Magnesia) 2,400 mg PRN QHS PRN PO CONSTIPATION; Start 08/19/17 at 20:30 Donepezil HCl (Aricept) 10 mg QHS PO Last administered on 08/26/17at 21:27; Start 08/19/17 at 21:00 Quetiapine Fumarate (SEROquel) 25 mg PRN Q12HR PRN PO Agitation/Delusions Last administered on 08/26/17 02:16; Start 08/19/17 at 20:30 Sertraline HCl (Zoloft) 100 mg DAILY PO Last administered on 08/27/17 09:09; Start 08/20/17 at 09:00 Aspirin (Sandra Aspirin) 325 mg DAILY PO Last administered on 08/27/17 09:10; Start 08/20/17 at 09:00 Carvedilol (Coreg) 6.25 mg BIDWMEALS PO Last administered on 08/27/17 09:09; Start 08/20/17 at 08:00 Clopidogrel Bisulfate (Plavix) 75 mg DAILY PO Last administered on 08/27/17 09 :09; Start 08/20/17 at 09:00 Finasteride (Proscar) 5 mg DAILY PO Last administered on 08/27/17 09:10; Start 08/20/17 at 09:00 Furosemide (Lasix) 20 mg DAILY PO Last administered on 08/27/17 09:10; Start 08/20/17 at 09:00 Gabapentin (Neurontin) 300 mg TID PO Last administered on 08/27/17 15:15; Start 08/19/17 at 21:00 Levothyroxine Sodium (Synthroid) 100 mcg DAILY07 PO Last administered on 05:08; Start 08/20/17 at 07:00; Stop 08/23/17 at 12:48; Status DC Pantoprazole Sodium (Protonix) 40 mg BID PO Last administered on 08/27/17 09: 10; Start 08/19/17 at 21:00 Atorvastatin Calcium (Lipitor) 40 mg QHS PO Last administered on 08/26/17 21: 27; Start 08/19/17 at 21:00 Ferrous Sulfate (Feosol) 325 mg DAILY PO Last administered on 08/27/17 09:08; Start 08/20/17 at 09:00 Lisinopril (Prinivil) 20 mg DAILY PO Last administered on 08/27/17 09:09; Start 08/20/17 at 09:00 Olanzapine (ZyPREXA ZYDIS) 2.5 mg PRN Q2HR PRN PO PSYCHOSIS Last administered on 08/26/17 21:33; Start 08/20/17 at 03:30 Vitamin D (Vitamin D3) 50,000 unit WEEKLY PO Last administered on 08/27/17 09: 11; Start 08/20/17 at 19:00 Risperidone (RisperDAL) 0.25 mg HS SL Last administered on 08/21/17 19:46; Start 08/20/17 at 21:00; Stop 08/22/17 at 19:24; Status DC Quetiapine Fumarate (SEROquel) 50 mg QHS PO Last administered on 08/26/17 21: 27; Start 08/22/17 at 21:00 Quetiapine Fumarate (SEROquel) 12.5 mg DAILY@0900 PO Last administered on 09:41; Start 08/23/17 at 09:00; Stop 08/23/17 at 19:33; Status DC Levothyroxine Sodium (Synthroid) 125 mcg DAILY07 PO Last administered on 09:09; Start 08/24/17 at 07:00 Quetiapine Fumarate (SEROquel) 12.5 mg TID@0900,1300,1700 PO Last administered on 08/26/17at 09:28; Start 08/24/17 at 09:00; Stop 08/26/17 at 12:52; Status DC Mirtazapine (Remeron) 7.5 mg QHS PO Last administered on 08/26/17at 21:27; Start 08/25/17 at 21:00 Quetiapine Fumarate (SEROquel) 12.5 mg BID@0900,1700 PO Last administered on 03/06at 09:10; Start 08/26/17 at 17:00 Active Scripts Active Reported Zyprexa (Olanzapine) 2.5 Mg Tablet 2.5 Mg PO Q2HR PRN MDD 10mg/24 hrs Remeron (Mirtazapine) 15 Mg Tablet 7.5 Mg PO QHS Vitamin D3 (Cholecalciferol (Vitamin D3)) 5,000 Unit Tablet 50,000 Unit PO WEEKLY Acetaminophen 500 Mg Tablet 650 Mg PO Q6HRS MDD 4000mg/24HRS [place] Liquid (Mag Hydrox/Al Hydrox/Sim[place]) 355 Ml Oral.susp 15 Ml PO PRN AFTMEALHC Milk Of Magnesia (Magnesium Hydroxide) 2,400 Mg/10 Ml Oral.susp 2,400 Mg PO QHS Aspirin 325 Mg Tablet 325 Mg PO DAILY Atorvastatin Calcium 40 Mg Tablet 40 Mg PO QHS Carvedilol 6.25 Mg Tablet 6.25 Mg PO BIDWMEALS Plavix (Clopidogrel Bisulfate) 75 Mg Tablet 75 Mg PO DAILY Aricept (Donepezil Hcl) 10 Mg Tablet 10 Mg PO QHS Ferrous Gluconate 324 Mg Tablet 324 Mg PO DAILY Finasteride 5 Mg Tablet 5 Mg PO DAILY Fosinopril Sodium 20 Mg Tablet 20 Mg PO DAILY Lasix (Furosemide) 20 Mg Tablet 20 Mg PO DAILY Neurontin (Gabapentin) 300 Mg Capsule 300 Mg PO TID Levothyroxine Sodium 100 Mcg Tablet 125 Mcg PO DAILY07 Pantoprazole Sodium 40 Mg Tablet.dr 40 Mg PO BID Seroquel (Quetiapine Fumarate) 25 Mg Tablet 25 Mg PO PRN Q12HR PRN Zoloft (Sertraline Hcl) 100 Mg Tablet 100 Mg PO DAILY I have reviewed the current psychotropics carefully including drug interactions. Risk benefit ratio favors no change other than as noted in my dictated progress note. Diagnosis: Problems: (1) Dementia, vascular, with depression (2) Dementia in Alzheimer's disease with depression (3) Dementia in Alzheimer's disease with delusions (4) Major neurocognitive disorder (5) Anxiety disorder (6) Delusion (7) Dementia, vascular, with delusions (8) Impulse control disorder DOMONIQUE ROWELL MD August 27, 2017 20:47
--- NOTE | 2017-08-28 11:07 | PN ---
DATE: 08/27/2017 SUBJECTIVE: The patient is an 82-year-old male patient, whom I have seen today as he has new onset of dysphagia. He apparently choked on a piece of pork. He actually managed to cough up two big pieces according to one of the nursing staff; however, since then he has been unable to swallow solid or liquid. However, he denied any shortness of breath. Denied any cough or phlegm, but every time that he attempts to eat or drink he developed aspiration pneumonia and starts coughing. This raised the possibility that might have food bolus stuck in his esophagus and I have arranged for him to have a stat CBC and CMP as well as stat CT scan of the soft tissue of the neck as well as CT scan of the chest without contrast and with a plan to transfer him to center where upper GI endoscopy can be done if need be on an urgent basis. HISTORY OF PRESENT ILLNESS: The patient was admitted on account of suicidal ideation, he planned to shoot himself with a gun. The night before admission, he ran into a street saying his family was trying to kill him. The police were called. He also has some bizarre behavior, all this in a background of psychosis and was admitted for inpatient psychiatric stabilization. PAST MEDICAL HISTORY: Significant for coronary artery disease, atrial fibrillation, hyperlipidemia, hypertension, history of prostate cancer. Supraventricular tachycardia and DVT. PAST SURGICAL HISTORY: Significant for PCI with stent deployment, implanted cardiac defibrillator. ALLERGIES: He is allergic to HALDOL, PENICILLIN and INFLUENZA VACCINE. He is known to have dementia for which he was started on Namenda. Also, he has significant mood disorder. SOCIAL HISTORY: He apparently lives at home with his daughter and son-in-law. He drinks alcohol occasionally. He does not smoke. He is retired. 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 PHYSICAL EXAMINATION: GENERAL: When I saw him this afternoon, he was sitting on the edge of the bed comfortably in no apparent respiratory distress. He was somewhat pale, but no jaundice, cyanosis or thyromegaly. No jugular venous distention. No lower limb edema. VITAL SIGNS: Her heart rate was 75, blood pressure 118/65, temperature was 97.4, respiratory rate was 20, and oxygen saturation was 92% on room air. HEAD, EYES, EARS, NOSE AND THROAT: Showed normocephalic, atraumatic. NECK: Supple. HEART: Showed normal first and second heart sounds. No gallop, rub or murmur. CHEST: Clear to auscultation. No crepitation or rhonchi. ABDOMEN: Distended, soft, nontender. No guarding or rigidity. No organomegaly. All hernial orifice intact. Bowel sounds normal. NEUROLOGIC: He was awake, alert. He is at times confused and very tangential, but without any obvious lateralizing sign. He moves extremities without difficulty. He ambulates with a walker. MEDICATIONS: Currently on following medications: He is on quetiapine fumarate 12.5 mg twice a day, mirtazapine 7.5 mg once a day, levothyroxine 125 mcg once a day, quetiapine fumarate 50 mg at bedtime, vitamin D 50,000 units once a week, lisinopril 20 mg once a day, ferrous sulfate 325 mg once a day, furosemide 20 mg p.o. daily, finasteride 5 mg p.o. daily, clopidogrel 75 mg once a day, aspirin 325 mg once a day, sertraline 100 mg once a day, carvedilol 6.25 mg twice a day, olanzapine 2.5 mg every 2 hours as needed, atorvastatin 40 mg at bedtime, Protonix 40 mg p.o. b.i.d. and gabapentin 300 mg 3 times a day, Aricept 10 mg at bedtime, quetiapine 25 mg twice a day, magnesium oxide 30 mL p.o. daily p.r.n. for constipation, Mylanta 15 mL 3 times a day, Tylenol 650 mg p.o. every 6 hours as needed for pain or fever. I have arranged for him to have a stat CBC and CMP and also a stat CT of the soft tissue of the neck as well as the CT scan of the chest without protocol. I reviewed obvious food bolus. I will transfer him to [facility] to consult the senior statistical programmer for upper GI endoscopy and dislodgement of the food bolus. RASHMI HERRERA MD DR: BRETT/hafsa JOB#: [id number] / [id number]
--- NOTE | 2017-08-28 11:55 | PN ---
DATE: 08/25/2017 PSYCHIATRIC PROGRESS NOTE This is a late entry 08/25/2017, covers elements not covered in my initial note 08/25/2017. SUBJECTIVE: I met with the patient in the evening. The patient slept 4 hours, somewhat poor in his sleep, which has been an ongoing problem, confused in the morning, previous night was putting himself on the floor in the wheelchair. No injuries noted. Later was less anxious. We have requested Dr. Pacheco for Neurology consult. REVIEW OF SYSTEMS: No CV, , pulmonary, eye, ENT system symptoms on review. Reliability poor. MENTAL STATUS EXAM: Oriented to himself. Insight, judgment, recent and remote memory, attention, concentration, fund of knowledge poor, consistent with his diagnoses mentioned in my initial note. PLAN: Start Remeron 7.5 mg p.o. at bedtime. Continue rest unchanged from initial note. MAN Evans ROWELL MD DR: HERNANDEZ/hafsa JOB#: [id number] / [id number]
--- NOTE | 2017-08-28 11:59 | PN ---
DATE: 08/26/2017 PSYCHIATRIC PROGRESS NOTE This is a late entry 08/26/2017, covers elements not covered in my initial note 08/26/2017. SUBJECTIVE: The patient was staffed at treatment team meeting with the entire team in the morning and the patient's son and daughter and attended the conference. I had a lengthy discussion about his diagnoses. Reviewed his past history about past treatments. He responded very positively to Aricept in the past, negatively to Namenda. REVIEW OF SYSTEMS: No CV, , pulmonary, eye system symptoms on review. Reliability poor. Gait unsteady with walker. MENTAL STATUS EXAM: Oriented to himself and situation. Speech is coherent, abstraction fair, computation impaired, short term memory is impaired. No suicidal or homicidal ideation. No clear psychotic symptoms. LABORATORY DATA: Reviewed. IMPRESSION: Major neurocognitive disorder, Alzheimer, vascular with delusion, depression, behavioral disturbance. PLAN: Increase Aricept to 23 mg a day. Continue rest of the psychotropics unchanged. He is somewhat sedated in the afternoon. We will stop the 12.5 Seroquel in the afternoon for now. Rest unchanged from initial note. MAN Evans ROWELL MD DR: HERNANDEZ/hafsa JOB#: [id number] / [id number]
--- NOTE | 2017-08-28 21:02 | PDOC ---
Exam Note: Jorje Note: Please also refer to the separate dictated note~for this date of service dictated separately.~Patient seen individually. Discussed the patient with Nursing staff reviewed the chart.~Reviewed interim history and current functioning. Reviewed vital signs,~Labs/ Radiology~and current medications noted below. Continue current treatment with the changes noted in the dictated addendum noteThis is a late entry for date of service August Assessment: Vital Signs: VS - Last 72 Hours, by Label Date Time Temp Pulse Resp B/P (MAP) Pulse Ox O2 Delivery O2 Flow Rate FiO2 08/27/17 20:04 98.5 84 22 152/73 (99) 95 2.0 08/27/17 16:37 96.3 74 20 125/72 (89) 99 08/27/17 09:09 75 118/65 08/27/17 09:09 75 118/65 08/27/17 05:29 97.4 75 20 118/65 (82) 92 08/26/17 18:15 97.3 68 18 131/66 (87) 97 08/26/17 09:35 78 18 103/59 (74) 96 Vital Signs Date Time Temp Pulse Resp B/P (MAP) Pulse Ox O2 Delivery O2 Flow Rate FiO2 08/27/17 20:04 98.5 84 22 152/73 (99) 95 2.0 08/25/17 11:50 Room Air I&O Intake and Output 08/28/17 07:00 Intake Total 600 ml Balance 600 ml Intake Oral 600 ml Current Medications: Meds: Current Medications Acetaminophen (Tylenol) 650 mg PRN Q6HRS PRN PO PAIN / TEMP; Start 08/19/17 at 20:30; Stop 08/27/17 at 22:05; Status DC Multi-Ingredient Ointment (Analgesic [place]) 1 lima PRN QID PRN TP MUSCLE PAIN; Start 08/19/17 at 20:30; Stop 08/27/17 at 22:05; Status DC Al Hydroxide/Mg Hydroxide (Mylanta Plus Xs) 15 ml PRN AFTMEALHC PRN PO DYSPEPSIA; Start 08/19/17 at 20:30; Stop 08/27/17 at 22:05; Status DC Magnesium Hydroxide (Milk Of Magnesia) 2,400 mg PRN QHS PRN PO CONSTIPATION; Start 08/19/17 at 20:30; Stop 08/27/17 at 22:05; Status DC Donepezil HCl (Aricept) 10 mg QHS PO Last administered on 08/26/17at 21:27; Start 08/19/17 at 21:00; Stop 08/27/17 at 22:05; Status DC Quetiapine Fumarate (SEROquel) 25 mg PRN Q12HR PRN PO Agitation/Delusions Last administered on 08/26/17at 02:16; Start 08/19/17 at 20:30; Stop 08/27/17 at 22:05 ; Status DC Sertraline HCl (Zoloft) 100 mg DAILY PO Last administered on 08/27/17at 09:09; Start 08/20/17 at 09:00; Stop 08/27/17 at 22:05; Status DC Aspirin (Sandra Aspirin) 325 mg DAILY PO Last administered on 08/27/17at 09:10; Start 08/20/17 at 09:00; Stop 08/27/17 at 22:05; Status DC Carvedilol (Coreg) 6.25 mg BIDWMEALS PO Last administered on 08/27/17at 09:09; Start 08/20/17 at 08:00; Stop 08/27/17 at 22:05; Status DC Clopidogrel Bisulfate (Plavix) 75 mg DAILY PO Last administered on 08/27/17at 09 :09; Start 08/20/17 at 09:00; Stop 08/27/17 at 22:05; Status DC Finasteride (Proscar) 5 mg DAILY PO Last administered on 08/27/17at 09:10; Start 08/20/17 at 09:00; Stop 08/27/17 at 22:05; Status DC Furosemide (Lasix) 20 mg DAILY PO Last administered on 08/27/17at 09:10; Start 08/20/17 at 09:00; Stop 08/27/17 at 22:05; Status DC Gabapentin (Neurontin) 300 mg TID PO Last administered on 08/27/17at 15:15; Start 08/19/17 at 21:00; Stop 08/27/17 at 22:05; Status DC Levothyroxine Sodium (Synthroid) 100 mcg DAILY07 PO Last administered on at 05:08; Start 08/20/17 at 07:00; Stop 08/23/17 at 12:48; Status DC Pantoprazole Sodium (Protonix) 40 mg BID PO Last administered on 08/27/17 09: 10; Start 08/19/17 at 21:00; Stop 08/27/17 at 22:05; Status DC Atorvastatin Calcium (Lipitor) 40 mg QHS PO Last administered on 08/26/17 21: 27; Start 08/19/17 at 21:00; Stop 08/27/17 at 22:05; Status DC Ferrous Sulfate (Feosol) 325 mg DAILY PO Last administered on 08/27/17 09:08; Start 08/20/17 at 09:00; Stop 08/27/17 at 22:05; Status DC Lisinopril (Prinivil) 20 mg DAILY PO Last administered on 08/27/17 09:09; Start 08/20/17 at 09:00; Stop 08/27/17 at 22:05; Status DC Olanzapine (ZyPREXA ZYDIS) 2.5 mg PRN Q2HR PRN PO PSYCHOSIS Last administered on 08/26/17at 21:33; Start 08/20/17 at 03:30; Stop 08/27/17 at 22:05; Status DC Vitamin D (Vitamin D3) 50,000 unit WEEKLY PO Last administered on 08/27/17 09: 11; Start 08/20/17 at 19:00; Stop 08/27/17 at 22:05; Status DC Risperidone (RisperDAL) 0.25 mg HS SL Last administered on 08/21/17 19:46; Start 08/20/17 at 21:00; Stop 08/22/17 at 19:24; Status DC Quetiapine Fumarate (SEROquel) 50 mg QHS PO Last administered on 08/26/17 21: 27; Start 08/22/17 at 21:00; Stop 08/27/17 at 22:05; Status DC Quetiapine Fumarate (SEROquel) 12.5 mg DAILY@0900 PO Last administered on at 09:41; Start 08/23/17 at 09:00; Stop 08/23/17 at 19:33; Status DC Levothyroxine Sodium (Synthroid) 125 mcg DAILY07 PO Last administered on 5/11/ 18at 09:09; Start 08/24/17 at 07:00; Stop 08/27/17 at 22:05; Status DC Quetiapine Fumarate (SEROquel) 12.5 mg TID@0900,1300,1700 PO Last administered on 08/26/17at 09:28; Start 08/24/17 at 09:00; Stop 08/26/17 at 12:52; Status DC Mirtazapine (Remeron) 7.5 mg QHS PO Last administered on 08/26/17at 21:27; Start 08/25/17 at 21:00; Stop 08/27/17 at 22:05; Status DC Quetiapine Fumarate (SEROquel) 12.5 mg BID@0900,1700 PO Last administered on 03/06at 09:10; Start 08/26/17 at 17:00; Stop 08/27/17 at 22:05; Status DC Active Scripts Active Reported Zyprexa (Olanzapine) 2.5 Mg Tablet 2.5 Mg PO Q2HR PRN MDD 10mg/24 hrs Remeron (Mirtazapine) 15 Mg Tablet 7.5 Mg PO QHS Vitamin D3 (Cholecalciferol (Vitamin D3)) 5,000 Unit Tablet 50,000 Unit PO WEEKLY Acetaminophen 500 Mg Tablet 650 Mg PO Q6HRS MDD 4000mg/24HRS [place] Liquid (Mag Hydrox/Al Hydrox/Simeth) 355 Ml Oral.susp 15 Ml PO PRN AFTMEALHC Milk Of Magnesia (Magnesium Hydroxide) 2,400 Mg/10 Ml Oral.susp 2,400 Mg PO QHS Aspirin 325 Mg Tablet 325 Mg PO DAILY Atorvastatin Calcium 40 Mg Tablet 40 Mg PO QHS Carvedilol 6.25 Mg Tablet 6.25 Mg PO BIDWMEALS Plavix (Clopidogrel Bisulfate) 75 Mg Tablet 75 Mg PO DAILY Aricept (Donepezil Hcl) 10 Mg Tablet 10 Mg PO QHS Ferrous Gluconate 324 Mg Tablet 324 Mg PO DAILY Finasteride 5 Mg Tablet 5 Mg PO DAILY Fosinopril Sodium 20 Mg Tablet 20 Mg PO DAILY Lasix (Furosemide) 20 Mg Tablet 20 Mg PO DAILY Neurontin (Gabapentin) 300 Mg Capsule 300 Mg PO TID Levothyroxine Sodium 100 Mcg Tablet 125 Mcg PO DAILY07 Pantoprazole Sodium 40 Mg Tablet.dr 40 Mg PO BID Seroquel (Quetiapine Fumarate) 25 Mg Tablet 25 Mg PO PRN Q12HR PRN Zoloft (Sertraline Hcl) 100 Mg Tablet 100 Mg PO DAILY I have reviewed the current psychotropics carefully including drug interactions. Risk benefit ratio favors no change other than as noted in my dictated progress note. Diagnosis: Problems: (1) Impulse control disorder (2) Dementia, vascular, with delusions (3) Delusion (4) Anxiety disorder (5) Major neurocognitive disorder (6) Dementia in Alzheimer's disease with delusions (7) Dementia in Alzheimer's disease with depression (8) Dementia, vascular, with depression DOMONIQUE ROWELL MD August 28, 2017 21:02
--- NOTE | 2017-08-29 19:00 | DS ---
DATE OF DISCHARGE: 08/27/2017 This is a late entry 08/27/2017 covers elements not covered in my initial note 08/27/2017. REASON FOR ADMISSION: Please refer to the admission history for details. Briefly, the patient is an 82-year-old male referred to us from [facility] Emergency Room where he presented from home on account of increasing suicidal ideation with a plan to shoot himself with a gun. The night previously he ran into the street, saying his family was trying to kill him and the police were called. He was quite psychotic. He was talking to cabbages in the garden and "other delusional behaviors." SIGNIFICANT FINDINGS AND CLINICAL COURSE: Following admission, the patient was seen daily individually from a psychiatric standpoint by myself, medical followup by Dr. Mendoza/Dr Garcia. I also met with the patient's daughter, son and at treatment team meeting to discuss his progress, diagnosis, his current medications and discharge plans. Initially, the patient remained quite confused, forgetful, depressed. Adjustments were made in his psychotropics and from a psychiatric standpoint, he seemed to be doing a little better on a combination of Zoloft 100 mg a day; Seroquel 25 mg b.i.d. p.r.n. and 12.5 mg b.i.d. at 0900 and 1700, and 50 mg at bedtime; Remeron 7.5 mg at bedtime; Aricept 10 mg at bedtime; and Zyprexa p.r.n. The plan was to increase Aricept to 23 mg a day since this is one medication he responded very positively to in the past. However, on 08/27/2017, he was transferred to [facility] after he choked on a piece of pork at lunch and then was diagnosed with pneumonia. No suicidal ideation at discharge. REVIEW OF SYSTEMS: Prior to discharge, ambulation impaired with walker. No CV, , pulmonary, eye, ENT system symptoms on review. MENTAL STATUS EXAM: Oriented to himself and situation. Speech coherent, abstraction fair, computation impaired, language function intact. Memory is impaired. Mood and affect still depressed but showing improvement. IMPRESSION: Major neurocognitive disorder; Alzheimer vascular with delusion, depression; anxiety disorder, unspecified; impulse control disorder, unspecified. Rest is as above and unchanged from admission. PLAN: The patient was transferred to [facility] per Dr. Mendoza. DISCHARGE MEDICATIONS: Please refer to the EMRAD. We would be happy to reassess him post medical stabilization whether he needs to be readmitted. Time for discharge day management greater than 30 minutes. MAN Evans ROWELL MD DR: HERNANDEZ/hafsa JOB#: [id number] / [id number]
== END 2017-08-27 21:30 | disposition short-term general hospital (02) | DRG 56 ==
LOC: GEROPSY 19:41
PROVIDERS: ADMIT Psychiatry & Neurology Psychiatry; ATTEND Psychiatry & Neurology Psychiatry
DX: G30.9 Alzheimer's disease, unspecified (principal); J18.9 Pneumonia, unspecified organism; F01.51 Vascular dementia, unspecified severity, with behavioral disturbance; I48.91 Unspecified atrial fibrillation; Z95.1 Presence of aortocoronary bypass graft; F05 Delirium due to known physiological condition; F02.81 Dementia in other diseases classified elsewhere, unspecified severity, with behavioral disturbance; F32.9 Major depressive disorder, single episode, unspecified; E78.5 Hyperlipidemia, unspecified; F41.9 Anxiety disorder, unspecified; F63.9 Impulse disorder, unspecified; I10 Essential (primary) hypertension; I25.10 Atherosclerotic heart disease of native coronary artery without angina pectoris; Z79.899 Other long term (current) drug therapy; Z85.46 Personal history of malignant neoplasm of prostate; Z91.81 History of falling; Z95.5 Presence of coronary angioplasty implant and graft; Z88.7 Allergy status to serum and vaccine; Z88.8 Allergy status to other drugs, medicaments and biological substances; Z86.718 Personal history of other venous thrombosis and embolism; Z79.01 Long term (current) use of anticoagulants; Z91.83 Wandering in diseases classified elsewhere
CPT/HCPCS: 36415; 70450; 70490; 71250; 80053; 80061; 81001; 82306; 82607; 83036; 83540; 83550; 83735; 84436; 84443; 84480; 85025; 85027; 86593; 93005

== ENCOUNTER 2017-09-02 14:53 | Inpatient (IN) | payer MEDICARE ==
[~2017-09-02] VITALS: Ht 188 cm; Wt 117.5 kg
[~2017-09-02 14:53] MED LIST: ACET500T68 PO; ASPI325T8 PO; ATOR40TA59 PO; CARV6.252 PO; CHOL500016 PO; CLOP75TA57 PO; DONE10TA61 PO; FERR324T9 PO; FINA5TAB4 PO; FOSI20TA PO; FURO-69 PO; GABA-586 PO; HYDR-963 PO; LEVO100T5 PO; MAG355OR29 PO; MAGN2400 PO; MEMA1CAP PO; MEMA28CA PO; MIRT15TA PO; OLAN2.5T3 PO; PANT40TA5 PO; QUET25TA5 PO; SERT100T PO
[2017-09-02 17:18] VITALS: BP 131/69
[2017-09-02] MEDS ORDERED: LISI-334 PO (18:04)
[2017-09-02] MEDS ORDERED: LANS30CA PO (18:04)
[2017-09-02] MEDS ORDERED: INSU100I11 SQ (18:04)
[2017-09-02] MEDS ORDERED: POTA10TA10 PO (18:04)
[2017-09-02] MEDS ORDERED: LORA0.5T96 (18:04)
[2017-09-02] MEDS ORDERED: METH29OI TP (18:04)
[2017-09-02] MEDS ORDERED: QUET50TA5 PO (18:16)
[2017-09-02] MEDS ORDERED: QUET25TA5 PO (18:16)
[2017-09-02] MEDS ORDERED: MAGNESIUM HYDROXIDE 2,400 MG/30 ML ORAL.SUSP. PO PRN (19:30)
[2017-09-02] MEDS ORDERED: METHYL SALICYLATE/MENTHOL TOPICAL OINTMENT 29GM TUBE. TP PRN ×2 (19:30→20:15)
[2017-09-02] MEDS ORDERED: MAG HYDROX/AL HYDROX/SIMETH 30 ML ORAL.SUSP PO PRN (19:30)
[2017-09-02] MEDS ORDERED: ACETAMINOPHEN 325 MG TABLET PO PRN (19:30)
--- NOTE | 2017-09-02 19:49 | HP ---
ADMIT DATE: 09/02/2017 PSYCHIATRIC ADMISSION HISTORY/EVALUATION This note covers elements not covered in my initial note of 09/02/2017. IDENTIFYING DATA: The patient is an 82-year-old male, who returns back to us from [facility] after workup of his dysphagia and apparently he had swallowed a piece of meat while on the unit. He was initially admitted to us via the Emergency Room on account of suicidal ideation with a plan to shoot himself with a gun. The night prior to admission, he ran into the street, saying his family was trying to kill him and police were called. He was quite psychotic, talking to cabbages is in the garden, and other delusional behaviors. While at [facility], the patient had become physically aggressive with staff, was punching staff, combative with nursing, physical therapy staff. CHIEF COMPLAINT: "Can you get this bed straight." In fact, the bed was totally straight and he appeared quite confused, anxious, restless, but did recognize me as "Doctor." HISTORY OF PRESENT ILLNESS: The patient has a history of dementia, Alzheimer's, vascular with delusion, depression, behavioral disturbance; and anxiety disorder, unspecified; impulse control disorder, unspecified. He had been living at home with family and getting increasingly psychotic, agitated as noted above. He is having sleep and appetite changes. No active suicidal or homicidal ideation. No clear history of bipolar disorder. PAST PSYCHIATRIC HISTORY: Noncontributory. PAST MEDICAL HISTORY: Positive for dysphagia and he is currently on pureed diet, honey thickened liquids, history of coronary artery disease, bypass surgery, atrial fibrillation, hyperlipidemia, hypertension, CA prostate SVT, history of kyphoplasty, implanted defibrillator. ACCU-CHEKS: A.c., at bedtime, dysphagia, 1 diet/pureed, takes his meds crushed in pudding, ambulates with a walker or wheelchair. CODE STATUS: Full code ALLERGIES: TO FLU VACCINE, HALDOL, PENICILLIN. CURRENT PSYCHOTROPICS: Aricept 10 mg at bedtime. According to information from the family, he responded extremely positively to the initiation of Aricept for his mood, agitation within the context of his dementia and we will go ahead and increase it to 23 mg a day. He is also on Neurontin 300 mg 3 times a day, Ativan 0.25 mg q. 4 hours p.r.n. anxiety, Remeron 7.5 mg at bedtime, Zyprexa 2.5 mg q. 2 hours p.r.n. psychosis, agitation maximum 10 mg in 24 hours, Seroquel 12.5 mg b.i.d. 9:00 a.m., 4 p.m. and 50 mg at bedtime 25 mg q. 12 hours p.r.n., Zoloft 100 mg a day and at [place] he was on Geodon p.r.n., but will discontinue this. FAMILY HISTORY: Noncontributory. SOCIAL HISTORY: No alcohol, drug abuse, physical, sexual or elder abuse history is noted. Not known to be a perpetrator. MENTAL STATUS EXAMINATION: The patient seen individually in his room in the evening of 09/02/2017. As noted above, very responded to me as "hello doctor." He is anxious, restless, somewhat distractable. Short term memory is impaired. Language function intact. Attention span short. Mood and affect remained somewhat intermittently labile. While at [facility], he had been quite agitated, aggressive, physically attacking staff, combative with nursing, physical therapy staff. IMPRESSION: Major neurocognitive disorder, Alzheimer, vascular with delusion, depression, behavioral disturbance; anxiety disorder, unspecified; impulse control disorder, unspecified. Rest as above. PLAN: Admit to Geropsychiatry Unit at [facility]. I will see the patient daily individually from a psychiatric standpoint, medical followup per Dr. Mendoza/Dr Garcia. Increase the Aricept from 10 mg a day to 23 mg a day. Discontinue the Geodon IM p.r.n. Continue rest of the psychotropics. Adjust further as clinically indicated. DOMONIQUE ROWELL MD DR: HERNANDEZ/hafsa JOB#: [id number] / [id number]
[2017-09-02] MEDS ORDERED: OLAN10VI2 IM (20:06)
[2017-09-02] MEDS ORDERED: HEPA50006 IJ (20:06)
[2017-09-02] MEDS ORDERED: LIDO700A39 TP (20:06)
[2017-09-02] MEDS ORDERED: OLANZapine IM 10 MG VIAL. IM PRN (20:15)
[2017-09-02] MEDS ORDERED: SIMETH PO SCH (20:15)
[2017-09-02] MEDS ORDERED: AL HYDROX PO SCH (20:15)
[2017-09-02] MEDS ORDERED: DEXTROSE 50% 25 GM / 50ML DISP.SYRIN. IV PRN (20:15)
[2017-09-02] MEDS ORDERED: MAG HYDROX PO SCH (20:15)
--- NOTE | 2017-09-02 20:29 | PDOC ---
Exam Note: Jorje Note: Please also refer to the separate dictated note~for this date of service dictated separately.~Patient seen individually. Discussed the patient with Nursing staff reviewed the chart.~Reviewed interim history and current functioning. Reviewed vital signs,~Labs/ Radiology~and current medications noted below. Continue current treatment with the changes noted in the dictated addendum note Assessment: Vital Signs: Vital Signs Date Time Temp Pulse Resp B/P (MAP) Pulse Ox O2 Delivery O2 Flow Rate FiO2 09/02/17 17:18 98.4 76 20 131/69 (89) 96 Room Air Current Medications: Meds: Current Medications Acetaminophen (Tylenol) 650 mg PRN Q6HRS PRN PO PAIN / TEMP; Start 09/02/17 at 19:30 Multi-Ingredient Ointment (Analgesic [place]) 1 [place] PRN QID PRN TP MUSCLE PAIN; Start 09/02/17 at 19:30 Al Hydroxide/Mg Hydroxide (Mylanta Plus Xs) 15 ml PRN AFTMEALHC PRN PO DYSPEPSIA; Start 09/02/17 at 19:30 Magnesium Hydroxide (Milk Of Magnesia) 2,400 mg PRN QHS PRN PO CONSTIPATION; Start 09/02/17 at 19:30 Insulin Human Lispro (HumaLOG) 0-5 UNITS TIDWMEALS SQ ; Start 09/03/17 at 08:00 Dextrose 12.5 gm PRN Q15MIN PRN IV SEE COMMENTS; Start 09/02/17 at 20:15 Aspirin (Sandra Aspirin) 325 mg DAILYWBKFT PO ; Start 09/03/17 at 08:00 Clopidogrel Bisulfate (Plavix) 75 mg DAILY PO ; Start 09/03/17 at 09:00 Furosemide (Lasix) 20 mg DAILY PO ; Start 09/03/17 at 09:00 Gabapentin (Neurontin) 300 mg TID PO ; Start 09/02/17 at 21:00 Levothyroxine Sodium (Synthroid) 125 mcg DAILY06 PO ; Start 09/03/17 at 06:00 Lisinopril (Prinivil) 20 mg DAILY PO ; Start 09/03/17 at 09:00; Status UNV Multi-Ingredient Ointment (Analgesic [place]) 1 [place] PRN QID PRN TP MUSCLE PAIN; Start 09/02/17 at 20:15; Status UNV Non-Formulary Medication (Acetaminophen ) 650 mg Q6HRS PO ; Start 09/03/17 at 00 :00; Status UNV Non-Formulary Medication (Atorvastatin Calcium ) 40 mg QHS PO ; Start 09/02/17 at 21:00; Status UNV Non-Formulary Medication (Carvedilol ) 6.25 mg BIDWMEALS PO ; Start 09/03/17 at 08:00; Status UNV Non-Formulary Medication (Cholecalciferol (Vitamin D3) (Vitamin D3)) 5,000 unit DAILY PO ; Start 09/03/17 at 09:00; Status UNV Non-Formulary Medication (Ferrous Gluconate ) 324 mg DAILY PO ; Start 09/03/17 at 09:00; Status UNV Non-Formulary Medication (Finasteride ) 5 mg DAILY PO ; Start 09/03/17 at 09:00 ; Status UNV Non-Formulary Medication (Heparin Sodium,Porcine/Pf (Heparin Sod 5,000 Unit/0.5 Ml)) 5,000 unit Q12HR IJ ; Start 09/02/17 at 21:00; Status UNV Non-Formulary Medication (Lansoprazole ) 1 cap DAILY PO ; Start 09/03/17 at 09: 00; Status UNV Non-Formulary Medication (Lidocaine ) 1 patch DAILY TP ; Start 09/03/17 at 09:00 ; Status UNV Non-Formulary Medication (Mag Hydrox/Al Hydrox/Simeth ([place] Liquid)) 15 ml PRN AFTMEALHC PO ; Start 09/02/17 at 20:15; Status UNV Non-Formulary Medication (Magnesium Hydroxide (Milk Of Magnesia)) 2,400 mg QHS PO ; Start 09/02/17 at 21:00; Status UNV Olanzapine (ZyPREXA IM) 5 mg PRN Q4HRS PRN IM PSYCHOSIS; Start 09/02/17 at 20: 15; Status UNV Sertraline HCl (Zoloft) 100 mg DAILY PO ; Start 09/03/17 at 09:00; Status UNV Non-Formulary Medication (Donepezil Hcl (Aricept)) 10 mg QHS PO ; Start at 21:00; Status UNV Non-Formulary Medication (Mirtazapine (Remeron)) 7.5 mg QHS PO ; Start 09/02/17 at 21:00; Status UNV Non-Formulary Medication (Olanzapine (Zyprexa)) 2.5 mg Q2HR PRN PO ANXIETY / AGITATION; Start 09/02/17 at 20:15; Status UNV Non-Formulary Medication (Quetiapine Fumarate (Seroquel)) 12.5 mg BID94 PO ; Start 09/03/17 at 09:00; Status UNV Non-Formulary Medication (Quetiapine Fumarate (Seroquel)) 25 mg PRN Q12HR PRN PO Agitation/Delusions; Start 09/02/17 at 20:15; Status UNV Non-Formulary Medication (Quetiapine Fumarate (Seroquel)) 50 mg QHS PO ; Start 09/02/17 at 21:00; Status UNV Active Scripts Active Reported Olanzapine Inj (Olanzapine) 10 Mg Vial 5 Mg IM PRN Q4HRS PRN Lidocaine 1 Each Adh..patch 1 Patch TP DAILY Heparin Sod 5,000 Unit/0.5 Ml (Heparin Sodium,Porcine/Pf) 5,000 Unit/0.5 Ml Disp.syrin 5,000 Unit IJ Q12HR Seroquel (Quetiapine Fumarate) 50 Mg Tablet 50 Mg PO QHS Seroquel (Quetiapine Fumarate) 25 Mg Tablet 12.5 Mg PO BID94 Analgesic [place] (Methyl Salicylate/Menthol) 28 Gm Oint...g. 1 [place] TP PRN QID PRN Lisinopril 20 Mg Tablet 20 Mg PO DAILY Lansoprazole 30 Mg Capsule.dr 1 Cap PO DAILY Zyprexa (Olanzapine) 2.5 Mg Tablet 2.5 Mg PO Q2HR PRN MDD 10mg/24 hrs Remeron (Mirtazapine) 15 Mg Tablet 7.5 Mg PO QHS Vitamin D3 (Cholecalciferol (Vitamin D3)) 5,000 Unit Tablet 5,000 Unit PO DAILY Acetaminophen 500 Mg Tablet 650 Mg PO Q6HRS MDD 4000mg/24HRS [place] Liquid (Mag Hydrox/Al Hydrox/Simeth) 355 Ml Oral.susp 15 Ml PO PRN AFTMEALHC Milk Of Magnesia (Magnesium Hydroxide) 2,400 Mg/10 Ml Oral.susp 2,400 Mg PO QHS Aspirin 325 Mg Tablet 325 Mg PO DAILYWBKFT Atorvastatin Calcium 40 Mg Tablet 40 Mg PO QHS Carvedilol 6.25 Mg Tablet 6.25 Mg PO BIDWMEALS Plavix (Clopidogrel Bisulfate) 75 Mg Tablet 75 Mg PO DAILY Aricept (Donepezil Hcl) 10 Mg Tablet 10 Mg PO QHS Ferrous Gluconate 324 Mg Tablet 324 Mg PO DAILY Finasteride 5 Mg Tablet 5 Mg PO DAILY Lasix (Furosemide) 20 Mg Tablet 20 Mg PO DAILY Neurontin (Gabapentin) 300 Mg Capsule 300 Mg PO TID Levothyroxine Sodium 100 Mcg Tablet 125 Mcg PO DAILY06 Seroquel (Quetiapine Fumarate) 25 Mg Tablet 25 Mg PO PRN Q12HR PRN Zoloft (Sertraline Hcl) 100 Mg Tablet 100 Mg PO DAILY I have reviewed the current psychotropics carefully including drug interactions. Risk benefit ratio favors no change other than as noted in my dictated progress note. Diagnosis: Problems: (1) Dementia, vascular, with depression (2) Dementia in Alzheimer's disease with depression (3) Dementia in Alzheimer's disease with delusions (4) Major neurocognitive disorder (5) Anxiety disorder (6) Delusion (7) Dementia, vascular, with delusions (8) Impulse control disorder DOMONIQUE ROWELL MD September 02, 2017 20:28
[2017-09-02] MEDS ORDERED: DONEPEZIL HCL 10 MG TABLET PO SCH (21:00)
[2017-09-02] MEDS ORDERED: NON FORMULARY ITEM (Magnesium Hydroxide (Milk Of Magnesia) 2,400 MG) PO SCH (21:00)
[2017-09-02 21:43] LABS: BASO # 0.1 x10^3/uL (0.0-0.2); BASO % 2 % (0-3); EOS # 0.3 x10^3/uL (0.0-0.7); EOS % 7 % (0-3); HEMATOCRIT 39.5 % (39.0-53.0); HEMOGLOBIN 12.8 g/dL (13.0-17.5); LYMPH # 0.6 x10^3/uL (1.0-4.8); LYMPH % 12 % (24-48); MEAN CORPUSCULAR HEMOGLOBIN 31 pg (25-35); MEAN CORPUSCULAR HGB CONC 33 g/dL (31-37); MEAN CORPUSCULAR VOLUME 95 fL (79-100); MONO # 0.4 x10^3/uL (0.0-1.1); MONO % 8 % (0-9); NEUT # 3.6 x10^3uL (1.8-7.7); NEUT % 71 % (31-73); PLATELET COUNT 219 x10^3/uL (140-400); RED BLOOD COUNT 4.17 x10^6/uL (4.30-5.70); RED CELL DISTRIBUTION WIDTH 19.1 % (11.5-14.5)
[2017-09-02 22:27] LABS: ALBUMIN 3.1 g/dL (3.4-5.0); ALBUMIN/GLOBULIN RATIO 0.7 (1.0-1.7); CALCIUM 8.8 mg/dL (8.5-10.1); CREATININE 0.9 mg/dL (0.7-1.3); MAGNESIUM 1.9 mg/dL (1.8-2.4); POTASSIUM 4.2 mmol/L (3.5-5.1); TOTAL BILIRUBIN 0.8 mg/dL (0.2-1.0); TOTAL PROTEIN 7.4 g/dL (6.4-8.2)
[2017-09-02] MEDS: GABAPENTIN 300 MG CAPSULE. PO SCH (22:29)
[2017-09-02] MEDS: HEPARIN PF for SUB-Q USE 5,000 UNIT/0.5 ML VIAL. SQ SCH (22:29)
[2017-09-02] MEDS: MIRTAZAPINE 7.5 MG TABLET. PO SCH (22:30)
[2017-09-02] MEDS: QUEtiapine 50 MG TABLET. PO SCH (22:30)
[2017-09-02] MEDS: ATORVASTATIN CALCIUM 20 MG TABLET PO SCH (22:30)
[2017-09-02 22:46] LABS: % EOS 6 % (0-5); % LYMPHS 12 % (24-48); % MONOS 5 % (0-10); % SEGS 77 % (35-66); ANISOCYTOSIS SLIGHT; PLT ESTIMATE ADEQUATE (ADEQUATE)
[2017-09-03] MEDS ORDERED: NON FORMULARY ITEM (Acetaminophen 650 MG) PO SCH
[2017-09-03] MEDS: QUEtiapine 25 MG TABLET. PO PRN ×2 (00:50→23:15)
[2017-09-03 05:33] VITALS: BP 133/71
[2017-09-03] MEDS: LEVOTHYROXINE 125 MCG TABLET PO SCH (06:23)
[2017-09-03] MEDS: INSULIN LISPRO 300 UNITS/3 ML INSULN.PEN. SQ SCH ×3 (08:00→17:00)
[2017-09-03] MEDS: FUROSEMIDE 20 MG TABLET PO SCH (09:23)
[2017-09-03] MEDS: FINASTERIDE 5 MG TABLET PO SCH (09:23)
[2017-09-03] MEDS: CLOPIDOGREL BISULFATE 75 MG TABLET PO SCH (09:25)
[2017-09-03] MEDS: ASPIRIN 325 MG TABLET PO SCH (09:25)
[2017-09-03] MEDS: LISINOPRIL 20 MG TABLET PO SCH (09:25)
[2017-09-03] MEDS: HEPARIN PF for SUB-Q USE 5,000 UNIT/0.5 ML VIAL. SQ SCH (09:25)
[2017-09-03] MEDS: PANTOPRAZOLE 40 MG TABLET. PO SCH (09:27)
[2017-09-03] MEDS: CARVEDILOL 6.25 MG TABLET PO SCH ×2 (09:27→17:28)
[2017-09-03] MEDS: FERROUS SULFATE 325 MG TABLET. PO SCH (09:27)
[2017-09-03] MEDS: SERTRALINE 100 MG TABLET. PO SCH (09:28)
[2017-09-03] MEDS: GABAPENTIN 300 MG CAPSULE. PO SCH ×3 (09:28→21:20)
[2017-09-03] MEDS: CHOLECALCIFEROL (VITAMIN D3) 1,000 UNIT TABLET PO SCH (09:28)
[2017-09-03] MEDS: QUEtiapine 25 MG TABLET. PO SCH ×2 (09:28→17:28)
[2017-09-03] MEDS: LIDOCAINE (700MG/PATCH) PATCH. TD SCH (09:30)
[2017-09-03 11:34] LABS: THYROID STIM HORMONE (TSH) 3.715 uIU/mL (0.358-3.740)
[2017-09-03 16:38] VITALS: BP 140/67
[2017-09-03] MEDS: DONEPEZIL 23 MG TABLET PO SCH (21:00)
[2017-09-03] MEDS: MIRTAZAPINE 7.5 MG TABLET. PO SCH (21:19)
[2017-09-03] MEDS: ATORVASTATIN CALCIUM 20 MG TABLET PO SCH (21:20)
[2017-09-03] MEDS: QUEtiapine 50 MG TABLET. PO SCH (21:20)
[2017-09-03 23:08] LABS: HEMOGLOBIN A1C 5.7 % (4.8-5.6)
[2017-09-04 00:09] LABS: T3 TOTAL 72 ng/dL (71-180); THYROXINE 7.9 ug/dL (4.5-12.0)
--- NOTE | 2017-09-04 05:26 | CONS ---
DATE OF CONSULTATION: 09/03/2017 CONSULTATION REPORT REASON FOR CONSULTATION: Medical management. HISTORY OF PRESENT ILLNESS: The patient is an 82-year-old male patient who was transferred to [facility] for severe dysphagia last Wednesday and he was off all his psychotropic medication because of his inability to swallow and he became extremely agitated, restless, combative, requiring mittens. Eventually we managed to do the swallowing evaluation and he was put on nectar thickened pureed diet and all his medications were restarted and he did actually very well, although continued to be paranoid and grandiose and once stabilized, he was [facility]. PAST MEDICAL HISTORY: Significant for coronary artery disease, atrial fibrillation, hyperlipidemia, hypertension, history of prostate cancer, benign prostatic hypertrophy, supraventricular tachycardia, and history of DVT. PAST SURGICAL HISTORY: Significant for coronary artery bypass graft surgery, PCI with stent deployment implantable cardioverter defibrillator placement. ALLERGIES: HE IS ALLERGIC TO HALDOL, PENICILLIN, AND INFLUENZA VACCINE. PAST PSYCHIATRIC HISTORY: Significant for mood disorder. SOCIAL HISTORY: Apparently lives at home with his daughter and son-in-law. He drinks alcohol occasionally. He does not smoke. He is retired. 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 MEDICATIONS: He is currently on following medications: He is on Aricept 10 mg at bedtime, ferrous gluconate 325 mg once a day, Plavix 75 mg once a day, atorvastatin, calcium 40 mg at bedtime, carvedilol 6.25 mg twice a day with meals, lisinopril 20 mg once a day, aspirin 325 mg once a day. He is on Tylenol 650 mg every 6 hours, gabapentin 300 mg 3 times a day, mirtazapine 7.5 mg at bedtime, sertraline 100 mg daily. He is on olanzapine 2.5 mg every 2 hours and not to exceed 10 mg in 24 hours and olanzapine 5 mg intramuscular as needed, Seroquel 12.5 mg twice a day, Seroquel 50 mg at bedtime scheduled. He is on furosemide 20 mg daily, Mylanta 15 mL after meals, milk of magnesia 30 mL p.o. daily p.r.n. for constipation, Prevacid 30 mg daily, levothyroxine sodium 125 mcg daily, Lidoderm patch topically on for 12 hours and off for 12 hours. He is on cholecalciferol 5000 International Units once a day, finasteride 5 mg daily for benign prostatic hypertrophy. REVIEW OF SYSTEMS: Unobtainable. PHYSICAL EXAMINATION: GENERAL: When I examined him today, he looked well and was clearly in no apparent respiratory distress, slightly pale, no jaundice, cyanosis, some thyromegaly. No jugular venous distention. No limb edema. VITAL SIGNS: His heart rate was 70, blood pressure was 140/67, temperature was 97.4, respiratory rate was 18 and oxygen saturation was 97%. HEAD, EYES, EARS, NOSE, AND THROAT: Showed normocephalic, atraumatic. NECK: Supple. HEART: Showed normal first and second heart sounds. No gallop, rub, or murmur. CHEST: Clear to auscultation. No crepitation or rhonchi. ABDOMEN: Distended, soft, nontender. No guarding or rigidity. No organomegaly. Hernial orifices intact. Bowel sounds normal. NEUROLOGIC: He was confused, paranoid, delusional, but without any obvious lateralizing sign. All his cranial intact. EXTREMITIES: He moves extremities without difficulty, he ambulates with a walker. LABORATORY DATA: His lab work this morning showed a white cell count 5000, hemoglobin 12.8, hematocrit 39.5, MCV 95 and platelet count 219,000. His chemistry showed that his serum sodium was 145, potassium 4.2, chloride 105, bicarbonate 34, anion gap of 6, BUN 5, creatinine 0.9, estimated GFR was 81 mL per minute. His glucose was 93, calcium was 8.8, magnesium was 1.9. Total bilirubin, AST, ALT, alkaline phosphatase were normal. His total protein was 7.4, albumin was 3.1. His serum triglycerides was 58, total cholesterol 110, LDL cholesterol was 64, VLDL was 11, HDL was 35 and the ratio was 3. TSH was normal at 1.715. His serum iron was 46, TIBC was 273 and iron saturation was 17. His vitamin B12 was 717 and 25-hydroxy vitamin D3 is low at 21.3. IMPRESSION: In summary, this is an 82-year-old male patient who was basically presented with delusions, which are sometimes grandeur in nature. He has also apparently dementia of Alzheimer type. Vascular with behavioral disturbances, anxiety disorder. Apparently, he has been increasingly psychotic, agitated as noted above. He originally was admitted here as he ran into the street, saying his family was trying to kill him and the police were called. He was quite psychotic, talking to ____ in the garden and other delusional behavior and while in [facility], the patient had become physically aggressive with staff, punching staff, combative with nursing, physical therapy staff. In any case, medically, he has had a video swallowing evaluation and he is now on a pureed diet, honey thickened liquid. He has multiple medical problems including history of coronary artery disease status post bypass surgery, atrial fibrillation, hyperlipidemia, hypertension, prostate cancer. All in all, he seemed to be medically stable. All his vital signs are within acceptable range, lab work. I will probably discontinue his heparin and follow him closely and adjust any medication as deemed necessary. Thank you, Dr. Greenfield for allowing me to participate in the care of this patient. RASHMI HERRERA MD DR: BRETT/hafsa JOB#: [id number] / [id number]
[2017-09-04] MEDS: LEVOTHYROXINE 125 MCG TABLET PO SCH (06:40)
[2017-09-04] MEDS: INSULIN LISPRO 300 UNITS/3 ML INSULN.PEN. SQ SCH ×3 (08:00→17:00)
[2017-09-04 10:06] VITALS: BP 161/65
[2017-09-04] MEDS: FUROSEMIDE 20 MG TABLET PO SCH (10:07)
[2017-09-04] MEDS: CARVEDILOL 6.25 MG TABLET PO SCH ×2 (10:07→17:45)
[2017-09-04] MEDS: ASPIRIN 325 MG TABLET PO SCH (10:07)
[2017-09-04] MEDS: FERROUS SULFATE 325 MG TABLET. PO SCH (10:07)
[2017-09-04] MEDS: GABAPENTIN 300 MG CAPSULE. PO SCH ×2 (10:08→20:34)
[2017-09-04] MEDS: CLOPIDOGREL BISULFATE 75 MG TABLET PO SCH (10:08)
[2017-09-04] MEDS: PANTOPRAZOLE 40 MG TABLET. PO SCH (10:08)
[2017-09-04] MEDS: FINASTERIDE 5 MG TABLET PO SCH (10:08)
[2017-09-04] MEDS: LISINOPRIL 20 MG TABLET PO SCH (10:08)
[2017-09-04] MEDS: SERTRALINE 100 MG TABLET. PO SCH (10:09)
[2017-09-04] MEDS: LIDOCAINE (700MG/PATCH) PATCH. TD SCH (10:09)
[2017-09-04] MEDS: CHOLECALCIFEROL (VITAMIN D3) 1,000 UNIT TABLET PO SCH (10:09)
[2017-09-04] MEDS: QUEtiapine 25 MG TABLET. PO SCH ×2 (10:09→17:45)
[2017-09-04 16:44] VITALS: BP 130/73
[2017-09-04] MEDS: DONEPEZIL 23 MG TABLET PO SCH (20:34)
[2017-09-04] MEDS: MIRTAZAPINE 7.5 MG TABLET. PO SCH (20:34)
[2017-09-04] MEDS: QUEtiapine 50 MG TABLET. PO SCH (20:34)
[2017-09-04] MEDS: ATORVASTATIN CALCIUM 20 MG TABLET PO SCH (20:35)
--- NOTE | 2017-09-04 23:06 | PDOC ---
Exam Note: Jorje Note: Late entry for date of service September 03, 2017. Please also refer to the separate dictated note~for this date of service dictated separately.~Patient seen individually. Discussed the patient with Nursing staff reviewed the chart.~ Reviewed interim history and current functioning. Reviewed vital signs,~Labs/ Radiology~and current medications noted below. Continue current treatment with the changes noted in the dictated addendum note Assessment: Vital Signs: VS - Last 72 Hours, by Label Date Time Temp Pulse Resp B/P (MAP) Pulse Ox O2 Delivery O2 Flow Rate FiO2 09/04/17 17:45 72 130/73 09/04/17 16:44 97.2 72 18 130/73 (92) 95 09/04/17 10:08 66 161/65 09/04/17 10:07 66 161/65 09/04/17 10:06 97.8 66 161/65 (97) 98 09/03/17 17:28 70 140/67 09/03/17 16:38 97.4 70 18 140/67 (91) 97 09/03/17 09:27 73 133/71 09/03/17 09:25 73 133/71 09/03/17 05:33 97.2 73 21 133/71 (91) 94 09/02/17 17:18 98.4 76 20 131/69 (89) 96 Room Air Vital Signs Date Time Temp Pulse Resp B/P (MAP) Pulse Ox O2 Delivery O2 Flow Rate FiO2 09/04/17 17:45 72 130/73 09/04/17 16:44 97.2 18 95 09/02/17 17:18 Room Air I&O Intake and Output 09/04/17 07:00 Intake Total 360 ml Balance 360 ml Intake Oral 360 ml Labs: Laboratory Tests Test 09/04/17 11:58 09/04/17 19:53 Glucose (Fingerstick) 67 mg/dL (70-99) L 68 mg/dL (70-99) L Current Medications: Meds: Current Medications Acetaminophen (Tylenol) 650 mg PRN Q6HRS PRN PO PAIN / TEMP; Start 09/02/17 at 19:30 Multi-Ingredient Ointment (Analgesic [place]) 1 [place] PRN QID PRN TP MUSCLE PAIN; Start 09/02/17 at 19:30 Al Hydroxide/Mg Hydroxide (Mylanta Plus Xs) 15 ml PRN AFTMEALHC PRN PO DYSPEPSIA; Start 09/02/17 at 19:30 Magnesium Hydroxide (Milk Of Magnesia) 2,400 mg PRN QHS PRN PO CONSTIPATION; Start 09/02/17 at 19:30 Insulin Human Lispro (HumaLOG) 0-5 UNITS TIDWMEALS SQ ; Start 09/03/17 at 08:00 Dextrose 12.5 gm PRN Q15MIN PRN IV SEE COMMENTS; Start 09/02/17 at 20:15 Aspirin (Sandra Aspirin) 325 mg DAILYWBKFT PO Last administered on 09/04/17at 10: 07; Start 09/03/17 at 08:00 Clopidogrel Bisulfate (Plavix) 75 mg DAILY PO Last administered on 09/04/17at 10 :08; Start 09/03/17 at 09:00 Furosemide (Lasix) 20 mg DAILY PO Last administered on 09/04/17at 10:07; Start 09/03/17 at 09:00 Gabapentin (Neurontin) 300 mg TID PO Last administered on 09/03/17at 09:28; Start 09/02/17 at 21:00; Stop 09/03/17 at 20:11; Status DC Levothyroxine Sodium (Synthroid) 125 mcg DAILY06 PO Last administered on at 06:40; Start 09/03/17 at 06:00 Lisinopril (Prinivil) 20 mg DAILY PO Last administered on 09/04/17at 10:08; Start 09/03/17 at 09:00 Multi-Ingredient Ointment (Analgesic [place]) 1 [place] PRN QID PRN TP MUSCLE PAIN; Start 09/02/17 at 20:15; Status Cancel Non-Formulary Medication (Acetaminophen ) 650 mg Q6HRS PO ; Start 09/03/17 at 00 :00; Status UNV Atorvastatin Calcium (Lipitor) 40 mg QHS PO Last administered on 09/04/17at 20: 35; Start 09/02/17 at 21:00 Carvedilol (Coreg) 6.25 mg BIDWMEALS PO Last administered on 09/04/17at 17:45; Start 09/03/17 at 08:00 Vitamin D (Vitamin D3) 5,000 unit DAILY PO Last administered on 09/04/17at 10:09 ; Start 09/03/17 at 09:00 Ferrous Sulfate (Feosol) 325 mg DAILY PO Last administered on 09/04/17 10:07; Start 09/03/17 at 09:00 Finasteride (Proscar) 5 mg DAILY PO Last administered on 09/04/17 10:08; Start 09/03/17 at 09:00 Heparin Sodium (Porcine) (Heparin Sq) 5,000 unit Q12HR SQ Last administered on 09/03/17 09:25; Start 09/02/17 at 21:00; Stop 09/03/17 at 18:46; Status DC Pantoprazole Sodium (Protonix) 40 mg DAILY PO Last administered on 09/04/17 10 :08; Start 09/03/17 at 09:00 Lidocaine (Lidoderm) 1 patch DAILY TD Last administered on 09/04/17 10:09; Start 09/03/17 at 09:00 Non-Formulary Medication (Mag Hydrox/Al Hydrox/Simeth ([place] Liquid)) 15 ml PRN AFTMEALHC PO ; Start 09/02/17 at 20:15; Status UNV Non-Formulary Medication (Magnesium Hydroxide (Milk Of Magnesia)) 2,400 mg QHS PO ; Start 09/02/17 at 21:00; Status UNV Olanzapine (ZyPREXA IM) 5 mg PRN Q4HRS PRN IM PSYCHOSIS; Start 09/02/17 at 20: 15 Sertraline HCl (Zoloft) 100 mg DAILY PO Last administered on 09/04/17at 10:09; Start 09/03/17 at 09:00 Donepezil HCl (Aricept) 10 mg QHS PO Last administered on 09/02/17at 22:30; Start 09/02/17 at 21:00; Stop 09/03/17 at 07:09; Status DC Mirtazapine (Remeron) 7.5 mg QHS PO Last administered on 09/04/17at 20:34; Start 09/02/17 at 21:00 Olanzapine (ZyPREXA ZYDIS) 2.5 mg PRN Q2HR PRN PO ANXIETY / AGITATION; Start at 20:45 Quetiapine Fumarate (SEROquel) 12.5 mg BID94 PO Last administered on 09/04/17at 17:45; Start 09/03/17 at 09:00 Quetiapine Fumarate (SEROquel) 25 mg PRN Q12HR PRN PO ANXIETY/DELUSIONS Last administered on 09/03/17at 23:15; Start 09/02/17 at 20:45 Quetiapine Fumarate (SEROquel) 50 mg QHS PO Last administered on 09/04/17 20: 34; Start 09/02/17 at 21:00 Donepezil HCl (Aricept) 23 mg QHS PO Last administered on 09/04/17at 20:34; Start 09/03/17 at 21:00 Gabapentin (Neurontin) 300 mg BID PO Last administered on 09/04/17 20:34; Start 09/03/17 at 21:00; Stop 09/04/17 at 23:50 Gabapentin (Neurontin) 300 mg QHS PO ; Start 09/05/17 at 09:00; Stop 09/06/17 at 23:50 Active Scripts Active Reported Olanzapine Inj (Olanzapine) 10 Mg Vial 5 Mg IM PRN Q4HRS PRN Lidocaine 1 Each Adh..patch 1 Patch TP DAILY Heparin Sod 5,000 Unit/0.5 Ml (Heparin Sodium,Porcine/Pf) 5,000 Unit/0.5 Ml Disp.syrin 5,000 Unit IJ Q12HR Seroquel (Quetiapine Fumarate) 50 Mg Tablet 50 Mg PO QHS Seroquel (Quetiapine Fumarate) 25 Mg Tablet 12.5 Mg PO BID94 Analgesic [place] (Methyl Salicylate/Menthol) 28 Gm Oint...g. 1 [place] TP PRN QID PRN Lisinopril 20 Mg Tablet 20 Mg PO DAILY Lansoprazole 30 Mg Capsule.dr 1 Cap PO DAILY Zyprexa (Olanzapine) 2.5 Mg Tablet 2.5 Mg PO Q2HR PRN MDD 10mg/24 hrs Remeron (Mirtazapine) 15 Mg Tablet 7.5 Mg PO QHS Vitamin D3 (Cholecalciferol (Vitamin D3)) 5,000 Unit Tablet 5,000 Unit PO DAILY Acetaminophen 500 Mg Tablet 650 Mg PO Q6HRS MDD 4000mg/24HRS [place] Liquid (Mag Hydrox/Al Hydrox/Simeth) 355 Ml Oral.susp 15 Ml PO PRN AFTMEALHC Milk Of Magnesia (Magnesium Hydroxide) 2,400 Mg/10 Ml Oral.susp 2,400 Mg PO QHS Aspirin 325 Mg Tablet 325 Mg PO DAILYWBKFT Atorvastatin Calcium 40 Mg Tablet 40 Mg PO QHS Carvedilol 6.25 Mg Tablet 6.25 Mg PO BIDWMEALS Plavix (Clopidogrel Bisulfate) 75 Mg Tablet 75 Mg PO DAILY Aricept (Donepezil Hcl) 10 Mg Tablet 10 Mg PO QHS Ferrous Gluconate 324 Mg Tablet 324 Mg PO DAILY Finasteride 5 Mg Tablet 5 Mg PO DAILY Lasix (Furosemide) 20 Mg Tablet 20 Mg PO DAILY Neurontin (Gabapentin) 300 Mg Capsule 300 Mg PO TID Levothyroxine Sodium 100 Mcg Tablet 125 Mcg PO DAILY06 Seroquel (Quetiapine Fumarate) 25 Mg Tablet 25 Mg PO PRN Q12HR PRN Zoloft (Sertraline Hcl) 100 Mg Tablet 100 Mg PO DAILY I have reviewed the current psychotropics carefully including drug interactions. Risk benefit ratio favors no change other than as noted in my dictated progress note. Diagnosis: Problems: (1) Dementia, vascular, with depression (2) Dementia in Alzheimer's disease with depression (3) Dementia in Alzheimer's disease with delusions (4) Major neurocognitive disorder (5) Anxiety disorder (6) Delusion (7) Dementia, vascular, with delusions (8) Impulse control disorder DOMONIQUE ROWELL MD September 04, 2017 23:06
--- NOTE | 2017-09-04 23:28 | PDOC ---
Exam Note: Jorje Note: Please also refer to the separate dictated note~for this date of service dictated separately.~Patient seen individually. Discussed the patient with Nursing staff reviewed the chart.~Reviewed interim history and current functioning. Reviewed vital signs,~Labs/ Radiology~and current medications noted below. Continue current treatment with the changes noted in the dictated addendum note Assessment: Vital Signs: Vital Signs Date Time Temp Pulse Resp B/P (MAP) Pulse Ox O2 Delivery O2 Flow Rate FiO2 09/04/17 17:45 72 130/73 09/04/17 16:44 97.2 18 95 09/02/17 17:18 Room Air I&O Intake and Output 09/04/17 07:00 Intake Total 360 ml Balance 360 ml Intake Oral 360 ml Labs: Laboratory Tests Test 09/04/17 11:58 09/04/17 19:53 Glucose (Fingerstick) 67 mg/dL (70-99) L 68 mg/dL (70-99) L Current Medications: Meds: Current Medications Acetaminophen (Tylenol) 650 mg PRN Q6HRS PRN PO PAIN / TEMP; Start 09/02/17 at 19:30 Multi-Ingredient Ointment (Analgesic [place]) 1 [place] PRN QID PRN TP MUSCLE PAIN; Start 09/02/17 at 19:30 Al Hydroxide/Mg Hydroxide (Mylanta Plus Xs) 15 ml PRN AFTMEALHC PRN PO DYSPEPSIA; Start 09/02/17 at 19:30 Magnesium Hydroxide (Milk Of Magnesia) 2,400 mg PRN QHS PRN PO CONSTIPATION; Start 09/02/17 at 19:30 Insulin Human Lispro (HumaLOG) 0-5 UNITS TIDWMEALS SQ ; Start 09/03/17 at 08:00 Dextrose 12.5 gm PRN Q15MIN PRN IV SEE COMMENTS; Start 09/02/17 at 20:15 Aspirin (Sandra Aspirin) 325 mg DAILYWBKFT PO Last administered on 09/04/17at 10: 07; Start 09/03/17 at 08:00 Clopidogrel Bisulfate (Plavix) 75 mg DAILY PO Last administered on 09/04/17at 10 :08; Start 09/03/17 at 09:00 Furosemide (Lasix) 20 mg DAILY PO Last administered on 09/04/17at 10:07; Start 09/03/17 at 09:00 Gabapentin (Neurontin) 300 mg TID PO Last administered on 09/03/17 09:28; Start 09/02/17 at 21:00; Stop 09/03/17 at 20:11; Status DC Levothyroxine Sodium (Synthroid) 125 mcg DAILY06 PO Last administered on at 06:40; Start 09/03/17 at 06:00 Lisinopril (Prinivil) 20 mg DAILY PO Last administered on 09/04/17at 10:08; Start 09/03/17 at 09:00 Multi-Ingredient Ointment (Analgesic [place]) 1 [place] PRN QID PRN TP MUSCLE PAIN; Start 09/02/17 at 20:15; Status Cancel Non-Formulary Medication (Acetaminophen ) 650 mg Q6HRS PO ; Start 09/03/17 at 00 :00; Status UNV Atorvastatin Calcium (Lipitor) 40 mg QHS PO Last administered on 09/04/17at 20: 35; Start 09/02/17 at 21:00 Carvedilol (Coreg) 6.25 mg BIDWMEALS PO Last administered on 09/04/17at 17:45; Start 09/03/17 at 08:00 Vitamin D (Vitamin D3) 5,000 unit DAILY PO Last administered on 09/04/17 10:09 ; Start 09/03/17 at 09:00 Ferrous Sulfate (Feosol) 325 mg DAILY PO Last administered on 09/04/17at 10:07; Start 09/03/17 at 09:00 Finasteride (Proscar) 5 mg DAILY PO Last administered on 09/04/17at 10:08; Start 09/03/17 at 09:00 Heparin Sodium (Porcine) (Heparin Sq) 5,000 unit Q12HR SQ Last administered on 09/03/17at 09:25; Start 09/02/17 at 21:00; Stop 09/03/17 at 18:46; Status DC Pantoprazole Sodium (Protonix) 40 mg DAILY PO Last administered on 09/04/17at 10 :08; Start 09/03/17 at 09:00 Lidocaine (Lidoderm) 1 patch DAILY TD Last administered on 09/04/17at 10:09; Start 09/03/17 at 09:00 Non-Formulary Medication (Mag Hydrox/Al Hydrox/Simeth ([place] Liquid)) 15 ml PRN AFTMEALHC PO ; Start 09/02/17 at 20:15; Status UNV Non-Formulary Medication (Magnesium Hydroxide (Milk Of Magnesia)) 2,400 mg QHS PO ; Start 09/02/17 at 21:00; Status UNV Olanzapine (ZyPREXA IM) 5 mg PRN Q4HRS PRN IM PSYCHOSIS; Start 09/02/17 at 20: 15 Sertraline HCl (Zoloft) 100 mg DAILY PO Last administered on 09/04/17at 10:09; Start 09/03/17 at 09:00 Donepezil HCl (Aricept) 10 mg QHS PO Last administered on 09/02/17at 22:30; Start 09/02/17 at 21:00; Stop 09/03/17 at 07:09; Status DC Mirtazapine (Remeron) 7.5 mg QHS PO Last administered on 09/04/17at 20:34; Start 09/02/17 at 21:00 Olanzapine (ZyPREXA ZYDIS) 2.5 mg PRN Q2HR PRN PO ANXIETY / AGITATION; Start at 20:45 Quetiapine Fumarate (SEROquel) 12.5 mg BID94 PO Last administered on 09/04/17at 17:45; Start 09/03/17 at 09:00 Quetiapine Fumarate (SEROquel) 25 mg PRN Q12HR PRN PO ANXIETY/DELUSIONS Last administered on 09/03/17at 23:15; Start 09/02/17 at 20:45 Quetiapine Fumarate (SEROquel) 50 mg QHS PO Last administered on 09/04/17at 20: 34; Start 09/02/17 at 21:00 Donepezil HCl (Aricept) 23 mg QHS PO Last administered on 09/04/17at 20:34; Start 09/03/17 at 21:00 Gabapentin (Neurontin) 300 mg BID PO Last administered on 09/04/17at 20:34; Start 09/03/17 at 21:00; Stop 09/04/17 at 23:50 Gabapentin (Neurontin) 300 mg QHS PO ; Start 09/05/17 at 09:00; Stop 09/06/17 at 23:50 Active Scripts Active Reported Olanzapine Inj (Olanzapine) 10 Mg Vial 5 Mg IM PRN Q4HRS PRN Lidocaine 1 Each Adh..patch 1 Patch TP DAILY Heparin Sod 5,000 Unit/0.5 Ml (Heparin Sodium,Porcine/Pf) 5,000 Unit/0.5 Ml Disp.syrin 5,000 Unit IJ Q12HR Seroquel (Quetiapine Fumarate) 50 Mg Tablet 50 Mg PO QHS Seroquel (Quetiapine Fumarate) 25 Mg Tablet 12.5 Mg PO BID94 Analgesic [place] (Methyl Salicylate/Menthol) 28 Gm Oint...g. 1 [place] TP PRN QID PRN Lisinopril 20 Mg Tablet 20 Mg PO DAILY Lansoprazole 30 Mg Capsule.dr 1 Cap PO DAILY Zyprexa (Olanzapine) 2.5 Mg Tablet 2.5 Mg PO Q2HR PRN MDD 10mg/24 hrs Remeron (Mirtazapine) 15 Mg Tablet 7.5 Mg PO QHS Vitamin D3 (Cholecalciferol (Vitamin D3)) 5,000 Unit Tablet 5,000 Unit PO DAILY Acetaminophen 500 Mg Tablet 650 Mg PO Q6HRS MDD 4000mg/24HRS [place] Liquid (Mag Hydrox/Al Hydrox/Simeth) 355 Ml Oral.susp 15 Ml PO PRN AFTMEALHC Milk Of Magnesia (Magnesium Hydroxide) 2,400 Mg/10 Ml Oral.susp 2,400 Mg PO QHS Aspirin 325 Mg Tablet 325 Mg PO DAILYWBKFT Atorvastatin Calcium 40 Mg Tablet 40 Mg PO QHS Carvedilol 6.25 Mg Tablet 6.25 Mg PO BIDWMEALS Plavix (Clopidogrel Bisulfate) 75 Mg Tablet 75 Mg PO DAILY Aricept (Donepezil Hcl) 10 Mg Tablet 10 Mg PO QHS Ferrous Gluconate 324 Mg Tablet 324 Mg PO DAILY Finasteride 5 Mg Tablet 5 Mg PO DAILY Lasix (Furosemide) 20 Mg Tablet 20 Mg PO DAILY Neurontin (Gabapentin) 300 Mg Capsule 300 Mg PO TID Levothyroxine Sodium 100 Mcg Tablet 125 Mcg PO DAILY06 Seroquel (Quetiapine Fumarate) 25 Mg Tablet 25 Mg PO PRN Q12HR PRN Zoloft (Sertraline Hcl) 100 Mg Tablet 100 Mg PO DAILY I have reviewed the current psychotropics carefully including drug interactions. Risk benefit ratio favors no change other than as noted in my dictated progress note. 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
[2017-09-04] MEDS: QUEtiapine 25 MG TABLET. PO PRN (23:55)
[2017-09-05 06:15] VITALS: BP 109/58
[2017-09-05] MEDS: LEVOTHYROXINE 125 MCG TABLET PO SCH (06:38)
[2017-09-05] MEDS: INSULIN LISPRO 300 UNITS/3 ML INSULN.PEN. SQ SCH ×3 (08:00→17:00)
[2017-09-05] MEDS: CHOLECALCIFEROL (VITAMIN D3) 1,000 UNIT TABLET PO SCH (10:59)
[2017-09-05] MEDS: SERTRALINE 100 MG TABLET. PO SCH (11:00)
[2017-09-05] MEDS: LISINOPRIL 20 MG TABLET PO SCH ×2 (11:00→12:22)
[2017-09-05] MEDS: ASPIRIN 325 MG TABLET PO SCH (11:00)
[2017-09-05] MEDS: GABAPENTIN 300 MG CAPSULE. PO SCH ×2 (11:00→18:53)
[2017-09-05] MEDS: QUEtiapine 25 MG TABLET. PO SCH ×2 (11:03→15:53)
[2017-09-05] MEDS: FERROUS SULFATE 325 MG TABLET. PO SCH (11:03)
[2017-09-05] MEDS: PANTOPRAZOLE 40 MG TABLET. PO SCH (11:03)
[2017-09-05] MEDS: CLOPIDOGREL BISULFATE 75 MG TABLET PO SCH (11:03)
[2017-09-05] MEDS: FINASTERIDE 5 MG TABLET PO SCH (11:04)
[2017-09-05] MEDS: LIDOCAINE (700MG/PATCH) PATCH. TD SCH (11:05)
[2017-09-05] MEDS: CARVEDILOL 6.25 MG TABLET PO SCH ×2 (12:22→15:53)
[2017-09-05] MEDS: FUROSEMIDE 20 MG TABLET PO SCH (12:22)
[2017-09-05 15:46] VITALS: BP 125/71
[2017-09-05] MEDS: QUEtiapine 25 MG TABLET. PO PRN (18:30)
[2017-09-05] MEDS: DONEPEZIL 23 MG TABLET PO SCH (18:53)
[2017-09-05] MEDS: MIRTAZAPINE 7.5 MG TABLET. PO SCH (18:54)
[2017-09-05] MEDS: ATORVASTATIN CALCIUM 20 MG TABLET PO SCH (18:54)
[2017-09-05] MEDS: QUEtiapine 50 MG TABLET. PO SCH (18:54)
--- NOTE | 2017-09-05 20:58 | PDOC ---
Exam Note: Jorje Note: Please also refer to the separate dictated note~for this date of service dictated separately.~Patient seen individually. Discussed the patient with Nursing staff reviewed the chart.~Reviewed interim history and current functioning. Reviewed vital signs,~Labs/ Radiology~and current medications noted below. Continue current treatment with the changes noted in the dictated addendum note Assessment: Vital Signs: Vital Signs Date Time Temp Pulse Resp B/P (MAP) Pulse Ox O2 Delivery O2 Flow Rate FiO2 09/05/17 15:53 74 125/71 09/05/17 15:46 97.0 20 97 09/02/17 17:18 Room Air I&O Intake and Output 09/05/17 07:00 Intake Total 480 ml Balance 480 ml Intake Oral 480 ml Labs: Laboratory Tests Test 09/05/17 07:29 09/05/17 11:49 09/05/17 16:14 09/05/17 19:22 Glucose (Fingerstick) 92 mg/dL (70-99) 74 mg/dL (70-99) 104 mg/dL (70-99) H 85 mg/dL (70-99) Current Medications: Meds: Current Medications Acetaminophen (Tylenol) 650 mg PRN Q6HRS PRN PO PAIN / TEMP; Start 09/02/17 at 19:30 Multi-Ingredient Ointment (Analgesic [place]) 1 [place] PRN QID PRN TP MUSCLE PAIN; Start 09/02/17 at 19:30 Al Hydroxide/Mg Hydroxide (Mylanta Plus Xs) 15 ml PRN AFTMEALHC PRN PO DYSPEPSIA; Start 09/02/17 at 19:30 Magnesium Hydroxide (Milk Of Magnesia) 2,400 mg PRN QHS PRN PO CONSTIPATION; Start 09/02/17 at 19:30 Insulin Human Lispro (HumaLOG) 0-5 UNITS TIDWMEALS SQ ; Start 09/03/17 at 08:00 Dextrose 12.5 gm PRN Q15MIN PRN IV SEE COMMENTS; Start 09/02/17 at 20:15 Aspirin (Sandra Aspirin) 325 mg DAILYWBKFT PO Last administered on 09/05/17at 11: 00; Start 09/03/17 at 08:00 Clopidogrel Bisulfate (Plavix) 75 mg DAILY PO Last administered on 09/05/17at 11 :03; Start 09/03/17 at 09:00 Furosemide (Lasix) 20 mg DAILY PO Last administered on 09/05/17 12:22; Start 09/03/17 at 09:00 Gabapentin (Neurontin) 300 mg TID PO Last administered on 09/03/17 09:28; Start 09/02/17 at 21:00; Stop 09/03/17 at 20:11; Status DC Levothyroxine Sodium (Synthroid) 125 mcg DAILY06 PO Last administered on 06:38; Start 09/03/17 at 06:00 Lisinopril (Prinivil) 20 mg DAILY PO Last administered on 09/05/17 12:22; Start 09/03/17 at 09:00 Multi-Ingredient Ointment (Analgesic [place]) 1 [place] PRN QID PRN TP MUSCLE PAIN; Start 09/02/17 at 20:15; Status Cancel Non-Formulary Medication (Acetaminophen ) 650 mg Q6HRS PO ; Start 09/03/17 at 00 :00; Status UNV Atorvastatin Calcium (Lipitor) 40 mg QHS PO Last administered on 09/05/17 18: 54; Start 09/02/17 at 21:00 Carvedilol (Coreg) 6.25 mg BIDWMEALS PO Last administered on 09/05/17 15:53; Start 09/03/17 at 08:00 Vitamin D (Vitamin D3) 5,000 unit DAILY PO Last administered on 09/05/17 10:59 ; Start 09/03/17 at 09:00 Ferrous Sulfate (Feosol) 325 mg DAILY PO Last administered on 09/05/17 11:03; Start 09/03/17 at 09:00 Finasteride (Proscar) 5 mg DAILY PO Last administered on 09/05/17 11:04; Start 09/03/17 at 09:00 Heparin Sodium (Porcine) (Heparin Sq) 5,000 unit Q12HR SQ Last administered on 09/03/17 09:25; Start 09/02/17 at 21:00; Stop 09/03/17 at 18:46; Status DC Pantoprazole Sodium (Protonix) 40 mg DAILY PO Last administered on 09/05/17 11 :03; Start 09/03/17 at 09:00 Lidocaine (Lidoderm) 1 patch DAILY TD Last administered on 5/20/18at 11:05; Start 09/03/17 at 09:00 Non-Formulary Medication (Mag Hydrox/Al Hydrox/Simeth ([place] Liquid)) 15 ml PRN AFTMEALHC PO ; Start 09/02/17 at 20:15; Status UNV Non-Formulary Medication (Magnesium Hydroxide (Milk Of Magnesia)) 2,400 mg QHS PO ; Start 09/02/17 at 21:00; Status UNV Olanzapine (ZyPREXA IM) 5 mg PRN Q4HRS PRN IM PSYCHOSIS; Start 09/02/17 at 20: 15 Sertraline HCl (Zoloft) 100 mg DAILY PO Last administered on 09/05/17 11:00; Start 09/03/17 at 09:00 Donepezil HCl (Aricept) 10 mg QHS PO Last administered on 09/02/17at 22:30; Start 09/02/17 at 21:00; Stop 09/03/17 at 07:09; Status DC Mirtazapine (Remeron) 7.5 mg QHS PO Last administered on 09/05/17at 18:54; Start 09/02/17 at 21:00 Olanzapine (ZyPREXA ZYDIS) 2.5 mg PRN Q2HR PRN PO ANXIETY / AGITATION; Start at 20:45 Quetiapine Fumarate (SEROquel) 12.5 mg BID94 PO Last administered on 09/05/17at 15:53; Start 09/03/17 at 09:00 Quetiapine Fumarate (SEROquel) 25 mg PRN Q12HR PRN PO ANXIETY/DELUSIONS Last administered on 09/05/17at 18:30; Start 09/02/17 at 20:45 Quetiapine Fumarate (SEROquel) 50 mg QHS PO Last administered on 09/05/17at 18: 54; Start 09/02/17 at 21:00 Donepezil HCl (Aricept) 23 mg QHS PO Last administered on 09/05/17at 18:53; Start 09/03/17 at 21:00 Gabapentin (Neurontin) 300 mg BID PO Last administered on 09/04/17at 20:34; Start 09/03/17 at 21:00; Stop 09/04/17 at 23:50; Status DC Gabapentin (Neurontin) 300 mg QHS PO Last administered on 09/05/17at 18:53; Start 09/05/17 at 09:00; Stop 09/06/17 at 23:50 Active Scripts Active Reported Olanzapine Inj (Olanzapine) 10 Mg Vial 5 Mg IM PRN Q4HRS PRN Lidocaine 1 Each Adh..patch 1 Patch TP DAILY Heparin Sod 5,000 Unit/0.5 Ml (Heparin Sodium,Porcine/Pf) 5,000 Unit/0.5 Ml Disp.syrin 5,000 Unit IJ Q12HR Seroquel (Quetiapine Fumarate) 50 Mg Tablet 50 Mg PO QHS Seroquel (Quetiapine Fumarate) 25 Mg Tablet 12.5 Mg PO BID94 Analgesic [place] (Methyl Salicylate/Menthol) 28 Gm Oint...g. 1 [place] TP PRN QID PRN Lisinopril 20 Mg Tablet 20 Mg PO DAILY Lansoprazole 30 Mg Capsule.dr 1 Cap PO DAILY Zyprexa (Olanzapine) 2.5 Mg Tablet 2.5 Mg PO Q2HR PRN MDD 10mg/24 hrs Remeron (Mirtazapine) 15 Mg Tablet 7.5 Mg PO QHS Vitamin D3 (Cholecalciferol (Vitamin D3)) 5,000 Unit Tablet 5,000 Unit PO DAILY Acetaminophen 500 Mg Tablet 650 Mg PO Q6HRS MDD 4000mg/24HRS [place] Liquid (Mag Hydrox/Al Hydrox/Simeth) 355 Ml Oral.susp 15 Ml PO PRN AFTMEALHC Milk Of Magnesia (Magnesium Hydroxide) 2,400 Mg/10 Ml Oral.susp 2,400 Mg PO QHS Aspirin 325 Mg Tablet 325 Mg PO DAILYWBKFT Atorvastatin Calcium 40 Mg Tablet 40 Mg PO QHS Carvedilol 6.25 Mg Tablet 6.25 Mg PO BIDWMEALS Plavix (Clopidogrel Bisulfate) 75 Mg Tablet 75 Mg PO DAILY Aricept (Donepezil Hcl) 10 Mg Tablet 10 Mg PO QHS Ferrous Gluconate 324 Mg Tablet 324 Mg PO DAILY Finasteride 5 Mg Tablet 5 Mg PO DAILY Lasix (Furosemide) 20 Mg Tablet 20 Mg PO DAILY Neurontin (Gabapentin) 300 Mg Capsule 300 Mg PO TID Levothyroxine Sodium 100 Mcg Tablet 125 Mcg PO DAILY06 Seroquel (Quetiapine Fumarate) 25 Mg Tablet 25 Mg PO PRN Q12HR PRN Zoloft (Sertraline Hcl) 100 Mg Tablet 100 Mg PO DAILY I have reviewed the current psychotropics carefully including drug interactions. Risk benefit ratio favors no change other than as noted in my dictated progress note. 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
[2017-09-06] MEDS: LEVOTHYROXINE 125 MCG TABLET PO SCH (06:30)
[2017-09-06] MEDS: ASPIRIN 325 MG TABLET PO SCH (08:00)
[2017-09-06] MEDS: INSULIN LISPRO 300 UNITS/3 ML INSULN.PEN. SQ SCH ×3 (08:00→16:59)
[2017-09-06] MEDS: CARVEDILOL 6.25 MG TABLET PO SCH ×2 (08:00→16:59)
[2017-09-06] MEDS: PANTOPRAZOLE 40 MG TABLET. PO SCH (09:00)
[2017-09-06] MEDS: CLOPIDOGREL BISULFATE 75 MG TABLET PO SCH (09:00)
[2017-09-06] MEDS: FERROUS SULFATE 325 MG TABLET. PO SCH (09:00)
[2017-09-06] MEDS: FINASTERIDE 5 MG TABLET PO SCH (09:00)
[2017-09-06] MEDS: SERTRALINE 100 MG TABLET. PO SCH (09:00)
[2017-09-06] MEDS: CHOLECALCIFEROL (VITAMIN D3) 1,000 UNIT TABLET PO SCH (09:00)
[2017-09-06] MEDS: FUROSEMIDE 20 MG TABLET PO SCH (09:00)
[2017-09-06] MEDS: QUEtiapine 25 MG TABLET. PO SCH ×2 (09:00→16:59)
--- NOTE | 2017-09-06 09:45 | PN ---
DATE: 09/03/2017 This is a late entry 09/03/2017, covers elements not covered in my initial note 09/03/2017, met with the patient in the evening of 09/03/2017. The patient has been quite withdrawn, spends much time in his room, oriented just to himself, believes he is in a hotel room, loves his room here. He is somewhat suspicious and told the nursing staff "that old bat stole my elevation." He has been less irritable, not aggressive, though at times, he gets agitated and there is a question whether the Neurontin is worsening his agitation. We will taper and stop it. I did increase the patient's Aricept to 23 mg a day because family felt he responded very positively to Aricept in the past and he was on 10 mg a day, but in fact the family states Aricept had been since discontinued and we will therefore reinitiate at 5 mg, increased to 10, and later to 23. REVIEW OF SYSTEMS: No CV, , pulmonary, eye, ENT system symptoms on review. MENTAL STATUS EXAM: Oriented to himself and recognizes me as a doctor. Insight, judgment, recent and remote memory, attention, concentration, fund of knowledge poor, consistent with his diagnosis mentioned in my initial note. PLAN: Continue psychotropics from my initial note with changes noted above. MAN Evans ROWELL MD DR: HERNANDEZ/hafsa JOB#: [id number] / [id number]
[2017-09-06] MEDS: LIDOCAINE (700MG/PATCH) PATCH. TD SCH (11:25)
--- NOTE | 2017-09-06 13:48 | PN ---
DATE: 09/04/2017 PSYCHIATRIC PROGRESS NOTE This late entry 09/04/2017 covers elements not covered in my initial note 09/04/2017. SUBJECTIVE: I met with the patient in the evening in his room. Previous night, reportedly, he was telling nursing staff that they were idiots. He is irritable, labile with staff, better during the day 09/04/2017. REVIEW OF SYSTEMS: No CV, , pulmonary, eye, ENT system symptoms on review. Gait unsteady with walker. MENTAL STATUS EXAM: Oriented to himself. Insight, judgment, recent and remote memory, attention, concentration, fund of knowledge poor, consistent with his diagnosis mentioned in my initial note. PLAN: Continue current psychotropics, Aricept, Neurontin is being tapered, Remeron, Zyprexa p.r.n., Seroquel, Zoloft. MAN FrankieFernando ROWELL MD DR: HERNANDEZ/hafsa JOB#: [id number] / [id number]
[2017-09-06 16:25] VITALS: BP 121/66
[2017-09-06] MEDS: GABAPENTIN 300 MG CAPSULE. PO SCH (19:50)
[2017-09-06] MEDS: DONEPEZIL 23 MG TABLET PO SCH (19:50)
[2017-09-06] MEDS: ATORVASTATIN CALCIUM 20 MG TABLET PO SCH (19:50)
[2017-09-06] MEDS: MIRTAZAPINE 7.5 MG TABLET. PO SCH (19:51)
[2017-09-06] MEDS: QUEtiapine 50 MG TABLET. PO SCH (19:51)
--- NOTE | 2017-09-06 20:59 | PDOC ---
Exam Note: Jorje Note: Please also refer to the separate dictated note~for this date of service dictated separately.~Patient seen individually. Discussed the patient with Nursing staff reviewed the chart.~Reviewed interim history and current functioning. Reviewed vital signs,~Labs/ Radiology~and current medications noted below. Continue current treatment with the changes noted in the dictated addendum note Assessment: Vital Signs: Vital Signs Date Time Temp Pulse Resp B/P (MAP) Pulse Ox O2 Delivery O2 Flow Rate FiO2 09/06/17 16:59 82 121/66 09/06/17 16:25 97.0 20 95 09/02/17 17:18 Room Air I&O Intake and Output 09/06/17 07:00 Intake Total 360 ml Balance 360 ml Intake Oral 360 ml Labs: Laboratory Tests Test 09/06/17 07:59 09/06/17 08:18 09/06/17 11:24 09/06/17 16:24 Glucose (Fingerstick) 66 mg/dL (70-99) L 78 mg/dL (70-99) 85 mg/dL (70-99) 89 mg/dL (70-99) Test 09/06/17 19:22 Glucose (Fingerstick) 114 mg/dL (70-99) H Current Medications: Meds: Current Medications Acetaminophen (Tylenol) 650 mg PRN Q6HRS PRN PO PAIN / TEMP; Start 09/02/17 at 19:30 Multi-Ingredient Ointment (Analgesic [place]) 1 [place] PRN QID PRN TP MUSCLE PAIN; Start 09/02/17 at 19:30 Al Hydroxide/Mg Hydroxide (Mylanta Plus Xs) 15 ml PRN AFTMEALHC PRN PO DYSPEPSIA; Start 09/02/17 at 19:30 Magnesium Hydroxide (Milk Of Magnesia) 2,400 mg PRN QHS PRN PO CONSTIPATION; Start 09/02/17 at 19:30 Insulin Human Lispro (HumaLOG) 0-5 UNITS TIDWMEALS SQ ; Start 09/03/17 at 08:00 Dextrose 12.5 gm PRN Q15MIN PRN IV SEE COMMENTS; Start 09/02/17 at 20:15 Aspirin (Sandra Aspirin) 325 mg DAILYWBKFT PO Last administered on 09/06/17at 08: 00; Start 09/03/17 at 08:00 Clopidogrel Bisulfate (Plavix) 75 mg DAILY PO Last administered on 09/06/17 09 :00; Start 09/03/17 at 09:00 Furosemide (Lasix) 20 mg DAILY PO Last administered on 09/06/17 09:00; Start 09/03/17 at 09:00 Gabapentin (Neurontin) 300 mg TID PO Last administered on 09/03/17 09:28; Start 09/02/17 at 21:00; Stop 09/03/17 at 20:11; Status DC Levothyroxine Sodium (Synthroid) 125 mcg DAILY06 PO Last administered on 06:30; Start 09/03/17 at 06:00 Lisinopril (Prinivil) 20 mg DAILY PO Last administered on 09/05/17 12:22; Start 09/03/17 at 09:00 Multi-Ingredient Ointment (Analgesic [place]) 1 [place] PRN QID PRN TP MUSCLE PAIN; Start 09/02/17 at 20:15; Status Cancel Non-Formulary Medication (Acetaminophen ) 650 mg Q6HRS PO ; Start 09/03/17 at 00 :00; Status UNV Atorvastatin Calcium (Lipitor) 40 mg QHS PO Last administered on 09/06/17 19: 50; Start 09/02/17 at 21:00 Carvedilol (Coreg) 6.25 mg BIDWMEALS PO Last administered on 09/06/17 16:59; Start 09/03/17 at 08:00 Vitamin D (Vitamin D3) 5,000 unit DAILY PO Last administered on 09/06/17 09:00 ; Start 09/03/17 at 09:00 Ferrous Sulfate (Feosol) 325 mg DAILY PO Last administered on 09/06/17 09:00; Start 09/03/17 at 09:00 Finasteride (Proscar) 5 mg DAILY PO Last administered on 09/06/17 09:00; Start 09/03/17 at 09:00 Heparin Sodium (Porcine) (Heparin Sq) 5,000 unit Q12HR SQ Last administered on 09/03/17 09:25; Start 09/02/17 at 21:00; Stop 09/03/17 at 18:46; Status DC Pantoprazole Sodium (Protonix) 40 mg DAILY PO Last administered on 5/21/18at 09 :00; Start 09/03/17 at 09:00 Lidocaine (Lidoderm) 1 patch DAILY TD Last administered on 09/06/17at 11:25; Start 09/03/17 at 09:00 Non-Formulary Medication (Mag Hydrox/Al Hydrox/Simeth ([place] Liquid)) 15 ml PRN AFTMEALHC PO ; Start 09/02/17 at 20:15; Status UNV Non-Formulary Medication (Magnesium Hydroxide (Milk Of Magnesia)) 2,400 mg QHS PO ; Start 09/02/17 at 21:00; Status UNV Olanzapine (ZyPREXA IM) 5 mg PRN Q4HRS PRN IM PSYCHOSIS; Start 09/02/17 at 20: 15 Sertraline HCl (Zoloft) 100 mg DAILY PO Last administered on 09/06/17at 09:00; Start 09/03/17 at 09:00 Donepezil HCl (Aricept) 10 mg QHS PO Last administered on 09/02/17at 22:30; Start 09/02/17 at 21:00; Stop 09/03/17 at 07:09; Status DC Mirtazapine (Remeron) 7.5 mg QHS PO Last administered on 09/05/17at 18:54; Start 09/02/17 at 21:00; Stop 09/06/17 at 00:35; Status DC Olanzapine (ZyPREXA ZYDIS) 2.5 mg PRN Q2HR PRN PO ANXIETY / AGITATION; Start at 20:45 Quetiapine Fumarate (SEROquel) 12.5 mg BID94 PO Last administered on 09/06/17at 16:59; Start 09/03/17 at 09:00 Quetiapine Fumarate (SEROquel) 25 mg PRN Q12HR PRN PO ANXIETY/DELUSIONS Last administered on 09/05/17at 18:30; Start 09/02/17 at 20:45 Quetiapine Fumarate (SEROquel) 50 mg QHS PO Last administered on 09/06/17at 19: 51; Start 09/02/17 at 21:00 Donepezil HCl (Aricept) 23 mg QHS PO Last administered on 09/06/17at 19:50; Start 09/03/17 at 21:00 Gabapentin (Neurontin) 300 mg BID PO Last administered on 09/04/17at 20:34; Start 09/03/17 at 21:00; Stop 09/04/17 at 23:50; Status DC Gabapentin (Neurontin) 300 mg QHS PO Last administered on 09/06/17at 19:50; Start 09/05/17 at 09:00; Stop 09/06/17 at 23:50 Mirtazapine (Remeron) 15 mg QHS PO Last administered on 09/06/17at 19:51; Start 09/06/17 at 21:00 Active Scripts Active Reported Olanzapine Inj (Olanzapine) 10 Mg Vial 5 Mg IM PRN Q4HRS PRN Lidocaine 1 Each Adh..patch 1 Patch TP DAILY Heparin Sod 5,000 Unit/0.5 Ml (Heparin Sodium,Porcine/Pf) 5,000 Unit/0.5 Ml Disp.syrin 5,000 Unit IJ Q12HR Seroquel (Quetiapine Fumarate) 50 Mg Tablet 50 Mg PO QHS Seroquel (Quetiapine Fumarate) 25 Mg Tablet 12.5 Mg PO BID94 Analgesic [place] (Methyl Salicylate/Menthol) 28 Gm Oint...g. 1 [place] TP PRN QID PRN Lisinopril 20 Mg Tablet 20 Mg PO DAILY Lansoprazole 30 Mg Capsule.dr 1 Cap PO DAILY Zyprexa (Olanzapine) 2.5 Mg Tablet 2.5 Mg PO Q2HR PRN MDD 10mg/24 hrs Remeron (Mirtazapine) 15 Mg Tablet 7.5 Mg PO QHS Vitamin D3 (Cholecalciferol (Vitamin D3)) 5,000 Unit Tablet 5,000 Unit PO DAILY Acetaminophen 500 Mg Tablet 650 Mg PO Q6HRS MDD 4000mg/24HRS [place] Liquid (Mag Hydrox/Al Hydrox/Simeth) 355 Ml Oral.susp 15 Ml PO PRN AFTMEALHC Milk Of Magnesia (Magnesium Hydroxide) 2,400 Mg/10 Ml Oral.susp 2,400 Mg PO QHS Aspirin 325 Mg Tablet 325 Mg PO DAILYWBKFT Atorvastatin Calcium 40 Mg Tablet 40 Mg PO QHS Carvedilol 6.25 Mg Tablet 6.25 Mg PO BIDWMEALS Plavix (Clopidogrel Bisulfate) 75 Mg Tablet 75 Mg PO DAILY Aricept (Donepezil Hcl) 10 Mg Tablet 10 Mg PO QHS Ferrous Gluconate 324 Mg Tablet 324 Mg PO DAILY Finasteride 5 Mg Tablet 5 Mg PO DAILY Lasix (Furosemide) 20 Mg Tablet 20 Mg PO DAILY Neurontin (Gabapentin) 300 Mg Capsule 300 Mg PO TID Levothyroxine Sodium 100 Mcg Tablet 125 Mcg PO DAILY06 Seroquel (Quetiapine Fumarate) 25 Mg Tablet 25 Mg PO PRN Q12HR PRN Zoloft (Sertraline Hcl) 100 Mg Tablet 100 Mg PO DAILY I have reviewed the current psychotropics carefully including drug interactions. Risk benefit ratio favors no change other than as noted in my dictated progress note. Diagnosis: Problems: (1) Dementia, vascular, with depression (2) Dementia in Alzheimer's disease with depression (3) Dementia in Alzheimer's disease with delusions (4) Major neurocognitive disorder (5) Anxiety disorder (6) Delusion (7) Dementia, vascular, with delusions (8) Impulse control disorder DOMONIQUE ROWELL MD September 06, 2017 20:59
--- NOTE | 2017-09-07 00:47 | PN ---
DATE: 09/05/2017 This is a late entry for 09/05/2017 and covers elements not covered in my initial note of 08/18/2017. I met with the patient in the evening in his room. He has been quite agitated in the evening, slept 2-3/4 hours, agitated with another demented patient. He has been paranoid, psychotic, talking about radio waves, wanting a radio to communicate with people "upstairs." REVIEW OF SYSTEMS: No CV, , pulmonary, eye, ENT system symptoms on review. Reliability poor. MENTAL STATUS EXAM: Oriented to himself. Insight, judgment, recent and remote memory, attention, concentration, fund of knowledge poor, consistent with his diagnosis as mentioned in my initial note. IMPRESSION: Major neurocognitive disorder, Alzheimer, vascular with depression, delusion, behavioral disturbance; anxiety disorder, unspecified; impulse control disorder, unspecified. PLAN: He still feels people are stealing from him. He slept poorly previous evening 2-3/4 hours. We will increase his Remeron from 7.5 mg at bedtime to 15 mg at bedtime. Maintain Neurontin, which is being tapered. Continue Aricept, Zyprexa p.r.n., Seroquel, Zoloft. DOMONIQUE ROWELL MD DR: HERNANDEZ/hafsa JOB#: [id number] / [id number]
[2017-09-07] MEDS: LEVOTHYROXINE 125 MCG TABLET PO SCH (05:52)
[2017-09-07 06:42] VITALS: BP 102/65
[2017-09-07] MEDS: INSULIN LISPRO 300 UNITS/3 ML INSULN.PEN. SQ SCH ×3 (08:00→17:00)
[2017-09-07] MEDS: LIDOCAINE (700MG/PATCH) PATCH. TD SCH ×2 (09:00→09:55)
[2017-09-07] MEDS: SERTRALINE 100 MG TABLET. PO SCH (09:51)
--- NOTE | 2017-09-07 09:51 | PN ---
DATE: 09/06/2017 SUBJECTIVE: The patient was seen today, met with the staff, chart reviewed and also covering for Dr. Greenfield. Staff reports that the patient stays in bed most of the time, walks with a walker, history of falls, but no recent falls. The patient also becomes delusional and paranoid at times and also aggressive. OBSERVATION: VITAL SIGNS: The patient refused vital signs. Pulse was 80. The patient slept about 7 hours last night. CURRENT MEDICATIONS: Reviewed. Currently on mirtazapine 15 mg at night, gabapentin 300 mg at night, Aricept 23 mg at night, Seroquel ____, Zoloft 100 mg daily, Protonix 40 mg daily, Seroquel ____. She is also on olanzapine 5 mg p.r.n. q. 4 hours. The patient is not having any side effects to the medications. ASSESSMENT: Major neurocognitive disorder, most likely Alzheimer's and vascular with delusions, depression, and behavioral disturbances; anxiety disorder, unspecified; and impulse control disorder, unspecified. PLAN: Continue with the treatment. SANDRA SAUER MD DR: SHAMIKA/hafsa JOB#: [id number] / [id number]
[2017-09-07] MEDS: CHOLECALCIFEROL (VITAMIN D3) 1,000 UNIT TABLET PO SCH (09:52)
[2017-09-07] MEDS: CLOPIDOGREL BISULFATE 75 MG TABLET PO SCH (09:52)
[2017-09-07] MEDS: FERROUS SULFATE 325 MG TABLET. PO SCH (09:52)
[2017-09-07] MEDS: LISINOPRIL 20 MG TABLET PO SCH (09:52)
[2017-09-07] MEDS: PANTOPRAZOLE 40 MG TABLET. PO SCH (09:52)
[2017-09-07] MEDS: QUEtiapine 25 MG TABLET. PO SCH ×2 (09:53→14:47)
[2017-09-07] MEDS: FINASTERIDE 5 MG TABLET PO SCH (09:54)
[2017-09-07] MEDS: ASPIRIN 325 MG TABLET PO SCH (09:54)
[2017-09-07] MEDS: CARVEDILOL 6.25 MG TABLET PO SCH ×2 (09:54→14:47)
[2017-09-07] MEDS: FUROSEMIDE 20 MG TABLET PO SCH (09:54)
[2017-09-07 10:27] LABS: BACTERIA,URINE 0 /HPF (0-FEW); BILIRUBIN,URINE NEG (NEG); CLARITY,URINE CLEAR; COLOR,URINE AMBER; GLUCOSE,URINE NEG (NEG); NITRITE,URINE NEG (NEG); RBC,URINE RARE /HPF (0-2); SQUAMOUS EPITHELIAL CELL,UR OCC /LPF; UROBILINOGEN,URINE 1 mg/dL (0.2 mg/dL); WBC,URINE RARE /HPF (0-4)
[2017-09-07 17:00] VITALS: BP 118/67
[2017-09-07] MEDS ORDERED: traZODone 50 MG TABLET. PO PRN (19:00)
[2017-09-07] MEDS: DONEPEZIL 23 MG TABLET PO SCH (19:50)
[2017-09-07] MEDS: MIRTAZAPINE 7.5 MG TABLET. PO SCH (19:50)
[2017-09-07] MEDS: ATORVASTATIN CALCIUM 20 MG TABLET PO SCH (19:50)
[2017-09-07] MEDS: QUEtiapine 50 MG TABLET. PO SCH (19:50)
[2017-09-08] MEDS ORDERED: CHOL500045 PO (06:26)
[2017-09-08] MEDS ORDERED: ACET325S PO (06:31)
[2017-09-08] MEDS ORDERED: PANT40GR PO (06:36)
[2017-09-08] MEDS ORDERED: FERR325T3 PO (06:36)
[2017-09-08 06:51] LABS: BASO # 0.1 x10^3/uL (0.0-0.2); BASO % 1 % (0-3); EOS # 0.2 x10^3/uL (0.0-0.7); EOS % 4 % (0-3); HEMATOCRIT 36.7 % (39.0-53.0); HEMOGLOBIN 12.1 g/dL (13.0-17.5); LYMPH # 1.2 x10^3/uL (1.0-4.8); LYMPH % 20 % (24-48); MEAN CORPUSCULAR HEMOGLOBIN 31 pg (25-35); MEAN CORPUSCULAR HGB CONC 33 g/dL (31-37); MEAN CORPUSCULAR VOLUME 94 fL (79-100); MONO # 0.5 x10^3/uL (0.0-1.1); MONO % 8 % (0-9); NEUT # 4.2 x10^3uL (1.8-7.7); NEUT % 67 % (31-73); PLATELET COUNT 283 x10^3/uL (140-400); RED BLOOD COUNT 3.92 x10^6/uL (4.30-5.70); RED CELL DISTRIBUTION WIDTH 19.1 % (11.5-14.5); WHITE BLOOD COUNT 6.3 x10^3/uL (4.0-11.0)
[2017-09-08 07:11] LABS: ALBUMIN/GLOBULIN RATIO 0.8 (1.0-1.7); CREATININE 0.9 mg/dL (0.7-1.3); POTASSIUM 3.7 mmol/L (3.5-5.1); TOTAL BILIRUBIN 0.4 mg/dL (0.2-1.0); TOTAL PROTEIN 6.6 g/dL (6.4-8.2)
--- NOTE | 2017-09-08 07:21 | EKG ---
[address] [address] Test Date: 2017-09-08 Test Time: 06:08:30 Pat Name: ROSANNE JOHNSON Department: Room: [facility] 1 Gender: M Cardiac Exercise Physiologist: : 1935 Requested By: DOMONIQUE ROWELL Order Number: [id number] Reading MD: Tushar Aguila MD Measurements Intervals [place] Rate: 72 P: 0 WI: 236 QRS: -54 QRSD: 128 T: 116 QT: 444 QTc: 488 Interpretive Statements SINUS RHYTHM PROLONGED WI INTERVAL ABNORMAL LEFT AXIS DEVIATION LOW LIMB LEAD VOLTAGE NON SPECIFIC INTRAVENTRICULAR BLOCK ABNORMAL ECG Electronically Signed On 10-03-2017 22:54:00 CDT by Tushar Aguila MD
--- NOTE | 2017-09-08 07:22 | RAD ---
Examination: CT head and c-spine without contrast HISTORY: History of code stroke fall COMPARISON: 08/21/2017 TECHNIQUE: Axial CT images of the head performed without contrast. Axial CT images cervical spine was performed without contrast. Coronal and sagittal reformats are performed Exposure: One or more of the following individualized dose reduction techniques were utilized for this examination: 1. Automated exposure control 2. Adjustment of the mA and/or kV according to patient size 3. Use of iterative reconstruction technique FINDINGS: There is a diffuse hyperdensity in the left frontal, right frontoparietal subarachnoid space likely acute subarachnoid hemorrhage. Hyperdensity identified in the extra-axial space likely subdural bleed identified in the right frontoparietal region measuring 1.9 cm in thickness. There is mild right to left midline shift measuring 8 mm. There is hyperdensity identified along the falx and the tentorium likely subdural bleed. Moderate bilateral periventricular white matter hypodensities likely chronic small vessel ischemic disease. The visualized paranasal sinuses, mastoid air cells are clear. The cervical vertebral body heights are maintained. The lateral masses of C1 are aligned with C2 vertebra. The C2 dens appears intact. Moderate intervertebral disc height loss identified throughout the cervical spine. The bilateral facets are well aligned. Examination is limited due to mild motion artifact. Grossly no obvious acute fracture visualized. IMPRESSION: 1. Right frontoparietal and left frontal subarachnoid bleed. Hyperdensity identified in the extra-axial space likely subdural bleed identified in the right frontoparietal region measuring 1.9 cm in thickness. There is mild right to left midline shift measuring 8 mm. 2. Subdural bleed identified along the falx and tentorium. 3. No acute fracture cervical spine. Examination limited due to motion artifact. was informed at 7:10 AM same day exam. Electronically signed by: Isreal Mendoza MD (09/08/2017 7:18 AM) [facility]
--- NOTE | 2017-09-08 07:40 | RAD ---
Examination: CT thoracic and lumbar spine without contrast HISTORY: History of fall COMPARISON: None available TECHNIQUE: Axial CT images of the thoracic and lumbar spine was performed without contrast. Coronal and sagittal reformats are performed FINDINGS: There is lucency identified in the L3 vertebral body with moderate compression of L3 vertebral body. There are moderate compression changes of L1, L2 vertebral bodies with lucencies particularly in the L2 vertebral body and kyphoplasty changes in the L1, L2 vertebral bodies. There is moderate compression change of L3 vertebral body with lucency identified in the posterior aspect of the L2 vertebral body extending to the pedicles likely fracture. Severe degenerative changes thoracic lumbar spine The bilateral facets are well aligned. The vertebral body heights and thoracic spine grossly appears unremarkable. Moderate left-sided pleural effusion. Small right-sided pleural effusion with bibasilar lung consolidation changes likely pneumonia or atelectasis. Moderate size hiatal hernia. Cystic structure identified in the left kidney measuring 3.3 cm could be a cyst or cystic lesion. Moderate aortic atherosclerosis. IMPRESSION: 1. Lucency identified in the L3 vertebral body with moderate compression changes likely acute fracture. There is moderate compression change of L3 vertebral body with lucency identified in the posterior aspect of the L2 vertebral body extending to the pedicles bilaterally, likely acute fracture. There is mild posterior bony retropulsion at this level. Examination is limited due to osseous demineralization. Comparison to prior exam can be useful if available. Recommend MRI. If MRI cannot be performed due to pacemaker recommend bone scan. 2. Age-indeterminate moderate compression fractures of L1, L2 vertebral body with kyphoplasty changes. 3. Moderate left, small right pleural effusions with bibasilar lung consolidation changes likely pneumonia or atelectasis. Electronically signed by: Isreal Mendoza MD (09/08/2017 7:37 AM) [facility]
--- NOTE | 2017-09-08 23:54 | DS ---
DATE OF DISCHARGE: 09/08/2017 This note covers elements not covered in my initial note 09/08/2017. REASON FOR ADMISSION: Please refer to the admission history for details. Briefly, the patient is an 82-year-old male referred back to us from the medical/surgical floor after the patient was medically stabilized there at [facility] due to an episode where he had aspirated a piece of meat. This was dislodged and then he was transferred by Dr. Mendoza to [place] for medical stabilization. After medical stabilization, he was still quite labile in his mood, angry, irritable, paranoid, combative with the nurse and physical therapy staff. He was punching them, was physically aggressive unmanageable, referred back for inpatient psychiatric interventions. SIGNIFICANT FINDINGS AND CLINICAL COURSE: Following admission, the patient was seen daily individually by myself from a psychiatric standpoint, medical followup per Dr. Mendoza/Dr. Garcia. The patient was initially quite angry, irritable, and labile. Adjustments were made in his psychotropics. He seemed to respond to a combination of Aricept 23 mg at bedtime and history from the family revealed that he had done well on Aricept in the past. He is also on Neurontin 300 mg twice a day and this was being gradually tapered to be discontinued, Remeron 15 mg p.o. at bedtime, Zyprexa p.r.n., Seroquel 12.5 mg b.i.d., 50 mg at bedtime plus Zoloft 100 mg a day, and Seroquel p.r.n. Gradually, the patient's mood was better. He was less labile and aggressive. However, at this stage of his hospitalization, night of 09/07/2017 and 09/08/2017, he had a fall. He was paranoid, believing someone has stolen his television set. CT head showed intracranial hematoma and he was transferred per Dr. Mendoza to [facility]. CONDITION AT DISCHARGE: Improved from a psychiatric standpoint, but he had fallen and sustained a subdural hematoma. REVIEW OF SYSTEMS: No CV, , pulmonary, eye, ENT system symptoms on review. Reliability poor. MENTAL STATUS EXAM: Oriented to himself and situation. Speech coherent and this was an assessment the day before. No suicidal or homicidal ideation. LABORATORY DATA: Reviewed. IMPRESSION: Major neurocognitive disorder, Alzheimer's, vascular with delusion, depression, behavioral disturbance, status post fall with head injury, subdural hematoma, anxiety disorder, unspecified; impulse control disorder, unspecified. Rest unchanged from admission. DISCHARGE MEDICATIONS: Patient's Remeron was discontinued prior to his transfer to the medical floor as was the Seroquel. Further interventions will be determined after he is medically stabilized and there has been time to assess his overall functional deficits. MAN Evans ROWELL MD DR: HERNANDEZ/hafsa JOB#: [id number] / [id number]
--- NOTE | 2017-09-09 08:14 | PN ---
DATE: 09/07/2017 PSYCHIATRIC PROGRESS NOTE This late entry 09/07/2017 covers elements not covered in my initial note 09/07/2017. SUBJECTIVE: I met with the patient in the evening. Overall, the patient slept 4-3/4 hours previous evening, resistive to medications, somewhat paranoid, telling nursing staff someone stole his television set. REVIEW OF SYSTEMS: No CV, , pulmonary, eye system symptoms on review. Reliability poor. MENTAL STATUS EXAM: Oriented to self. Insight, judgment, recent and remote memory, attention, concentration, fund of knowledge poor, consistent with his diagnosis mentioned in my initial note. IMPRESSION: Major neurocognitive disorder, Alzheimer, vascular with depression, delusion, behavioral disturbance. PLAN: Start trazodone 50 mg at bedtime p.r.n., august repeat x 1 for insomnia. Rest unchanged from initial note. MAN Evans ROWELL MD DR: HERNANDEZ/hafsa JOB#: [id number] / [id number]
== END 2017-09-08 06:00 | disposition short-term general hospital (02) | DRG 57 ==
LOC: GEROPSY 16:36
PROVIDERS: ADMIT Psychiatry & Neurology Psychiatry; ATTEND Psychiatry & Neurology Psychiatry
DX: G30.9 Alzheimer's disease, unspecified (principal); S06.5X9A Traumatic subdural hemorrhage with loss of consciousness of unspecified duration, initial encounter; F01.51 Vascular dementia, unspecified severity, with behavioral disturbance; F02.81 Dementia in other diseases classified elsewhere, unspecified severity, with behavioral disturbance; I48.91 Unspecified atrial fibrillation; R13.10 Dysphagia, unspecified; W18.39XA Other fall on same level, initial encounter; E78.5 Hyperlipidemia, unspecified; F32.9 Major depressive disorder, single episode, unspecified; F41.9 Anxiety disorder, unspecified; F63.9 Impulse disorder, unspecified; I10 Essential (primary) hypertension; I25.10 Atherosclerotic heart disease of native coronary artery without angina pectoris; N40.0 Benign prostatic hyperplasia without lower urinary tract symptoms; Y92.238 Other place in hospital as the place of occurrence of the external cause; Z79.899 Other long term (current) drug therapy; Z85.46 Personal history of malignant neoplasm of prostate; Z86.718 Personal history of other venous thrombosis and embolism; Z91.81 History of falling; Z95.1 Presence of aortocoronary bypass graft; Z88.0 Allergy status to penicillin; Z88.7 Allergy status to serum and vaccine; Z88.8 Allergy status to other drugs, medicaments and biological substances; Y93.89 Activity, other specified; Y99.8 Other external cause status
CPT/HCPCS: 36415; 70450; 72125; 72128; 72131; 80053; 80061; 81001; 82306; 82607; 82947; 83036; 83540; 83550; 83735; 84436; 84443; 84480; 85007; 85025; 86593; 93005; J1815

== ENCOUNTER 2017-09-08 06:05 | Inpatient (IN) | payer MEDICARE ==
[2017-09-08 06:05] VITALS: BP 131/74
[~2017-09-08 06:05] MED LIST changes: +HEPA50006 IJ; +INSU100I11 SQ; +LANS30CA PO; +LIDO700A39 TP; +LISI-334 PO; +LORA0.5T96; +METH29OI TP; +OLAN10VI2 IM; +POTA10TA10 PO; +QUET50TA5 PO
[2017-09-08] MEDS ORDERED: CHOL500045 PO (06:26)
[2017-09-08] MEDS ORDERED: ACET325S PO (06:31)
[2017-09-08] MEDS ORDERED: PANT40GR PO (06:36)
[2017-09-08] MEDS ORDERED: FERR325T3 PO (06:36)
[2017-09-08 08:40] VITALS: BP 123/74
--- NOTE | 2017-09-08 18:42 | SSS ---
ADMIT DATE: 09/08/2017 HISTORY OF PRESENT ILLNESS: The patient is an 82-year-old male patient who apparently was at [facility] and apparently, the patient was combative with the SENIOR DATA WAREHOUSE ARCHITECT, who was walking with him. He apparently fell on his buttock and then hit his head and was taken to the ICU. CT scan of the head and cervical spine showed that the patient has right frontal, parietal and left frontal subarachnoid bleed. There is hyperdensity identified in the extraaxial space likely subdural bleed identified in the right frontoparietal region measuring 1.9 cm in thickness. There is mild right to left midline shift measuring about 8 mm. The subdural bleed identified along the falx and the tentorium. No acute fracture of cervical spine. Examination was limited due to motion artifact. The patient was kept in a cervical collar because the examination of the cervical spine was limited due to motion artifact and was transferred to [facility] in consultation with the neurosurgeon there. On arrival to the ICU, the patient was awake, alert, but confused. Apparently, his left upper extremity was flaccid; however, he was hemodynamically stable. PAST MEDICAL HISTORY: Significant for coronary artery disease, atrial fibrillation, hyperlipidemia, hypertension, history of prostate cancer, benign prostatic hypertrophy, supraventricular tachycardia, and history of DVT. PAST SURGICAL HISTORY: Significant for coronary artery bypass graft surgery, PCI with stent deployment, implantable cardioverter defibrillator placement. ALLERGIES: He is allergic to HALDOL, PENICILLIN and INFLUENZA VACCINE. PAST PSYCHIATRIC HISTORY: Significant for mood disorder and dementia. SOCIAL HISTORY: He apparently used to live at home with his daughter and son-in-law. He drinks alcohol occasionally. He does not smoke. He is retired. 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 MEDICATIONS: The patient was on ferrous sulfate 325 mg once a day, Plavix 75 mg once a day, atorvastatin calcium 40 mg at bedtime, carvedilol 6.25 mg twice a day, lisinopril 20 mg daily, aspirin 325 mg once a day, analgesic balm topically 4 times a day, acetaminophen 650 mg every 6-8 hours, furosemide 20 mg once a day, Mylanta 15 mL after meals, magnesium hydroxide for milk of magnesia 30 mL p.o. daily p.r.n. for constipation, Protonix 40 mg daily, levothyroxine sodium 100 mcg once a day, Lidoderm patch applied topically daily, cholecalciferol, vitamin D 5000 international unit once a day, and finasteride 5 mg daily. PHYSICAL EXAMINATION: GENERAL: On examining him, the patient was somewhat pale, but no jaundice, cyanosis, or thyromegaly. No jugular venous distension. No lower limb edema. VITAL SIGNS: His heart rate was 71, blood pressure was 131/74, temperature was 96.8, respiratory rate was 20, and oxygen saturation was 94%. HEAD, EYES, EARS, NOSE, AND THROAT: Showed normocephalic, atraumatic. NECK: Supple, with a cervical collar in place. HEART: Showed normal first and second heart sounds with no gallop, rub or murmur. CHEST: Clear to auscultation. No crepitation or rhonchi. ABDOMEN: Distended, soft, and nontender. NEUROLOGIC: He was confused. All his cranial nerves are intact. He has left upper extremity weakness. He moves his right upper and bilateral lower extremities without difficulty. LABORATORY DATA: Showed a white cell count of 6300, hemoglobin 12, hematocrit 37, MCV 94, and platelet count 283,000. His chemistry showed a serum sodium 144, potassium 3.7, chloride 106, bicarbonate 28, anion gap of 10, BUN 8, creatinine 0.9, estimated GFR was 81 mL per minute. Her glucose was 124, calcium was 9.8. DIAGNOSTIC DATA: 1. The patient has a CT scan of the thoracic and lumbar as well as head and cervical spine. The CT scan of the head without contrast showed that the patient has right frontoparietal and left frontal subarachnoid bleed, hyperdensity identified in the extraaxial space likely subdural bleed identified in the right frontoparietal region measuring 1.9 cm in thickness. There is mild right to left midline shift measuring 8 mm. 2. Subdural bleed identified along with the falx and tentorium. No acute fractures of cervical spine. Examination is limited due to motion artifact. The CT scan of the lumbar spine showed that the lucency identified in the L3 vertebral body with moderate compression changes, likely acute fracture. There is moderate compression change of L3 vertebral body with lucency identified in the posterior aspect of the L2 vertebral body measure extending to the pedicles bilaterally, likely acute fracture. There is mild posterior bony retropulsion of this level. Examination is limited due to osseous demineralization in comparison to prior exam can be useful if available. Recommend MRI, if MRI cannot be performed due to pacemaker, recommend bone scan, age indeterminate, moderate compression fracture of L1-L2 vertebral body with kyphoplasty changes, moderate left and small right pleural effusion with bibasilar lung consolidation changes, likely pneumonia or atelectasis. The CT scan of the thoracic spine showed lucency identified in the left vertebral body. The patient was basically kept in cervical collar, was transferred to [facility] ICU for further evaluation and to consult the neurosurgical team. FINAL DISCHARGE DIAGNOSIS: Traumatic subdural and subarachnoid hemorrhage, probably acute L1 fracture. He has multiple other medical problems including coronary artery disease, atrial fibrillation, hyperlipidemia, hypertension, prostate cancer, benign prostatic hypertrophy, supraventricular tachycardia, and history of deep venous thrombosis. RASHMI HERRERA MD DR: BRETT/hafsa JOB#: [id number] / [id number]
== END 2017-09-08 08:41 | disposition short-term general hospital (02) | DRG 83 ==
LOC: ICU 06:05 → UNDODISIN 08:41
PROVIDERS: ADMIT Internal Medicine; ATTEND Internal Medicine
DX: S06.5X9A Traumatic subdural hemorrhage with loss of consciousness of unspecified duration, initial encounter (principal); S32.019A Unspecified fracture of first lumbar vertebra, initial encounter for closed fracture; I48.91 Unspecified atrial fibrillation; C61 Malignant neoplasm of prostate; S06.6X9A Traumatic subarachnoid hemorrhage with loss of consciousness of unspecified duration, initial encounter; E78.5 Hyperlipidemia, unspecified; I10 Essential (primary) hypertension; I25.10 Atherosclerotic heart disease of native coronary artery without angina pectoris; N40.0 Benign prostatic hyperplasia without lower urinary tract symptoms; F03.90 Unspecified dementia, unspecified severity, without behavioral disturbance, psychotic disturbance, mood disturbance, and anxiety; W18.39XA Other fall on same level, initial encounter; Z85.46 Personal history of malignant neoplasm of prostate; F39 Unspecified mood [affective] disorder; Z86.718 Personal history of other venous thrombosis and embolism; Z95.1 Presence of aortocoronary bypass graft; Z88.0 Allergy status to penicillin; Z88.7 Allergy status to serum and vaccine; Z88.8 Allergy status to other drugs, medicaments and biological substances; Y93.89 Activity, other specified; Y92.89 Other specified places as the place of occurrence of the external cause; Y99.8 Other external cause status